=== PATIENT | female | born 1955 | race Caucasian/White ===

== ENCOUNTER 2020-03-29 10:37 | Outpatient (CLI) | payer MEDICARE, SELFPAY ==
[2020-03-29 10:52] LABS: Basophils Percent Auto 0.8 % (0.2-1.2); Eosinophils Absolute Auto 0.2 K/mm3 (0-0.3); Hematocrit 37.7 % (37.0-47.0); Hemoglobin 12.3 g/dL (12.0-15.0); Immature Granulocyte Absolute 0.01 K/mm3 (0.00-0.031); Immature Granulocyte Percent A 0.2 % (0-0.5); Lymphocytes Absolute Auto 1.12 K/mm3 (0.9-3.2); Lymphocytes Percent Auto 23.6 % (18.3-44.2); Mean Corpuscular HGB Conc 32.6 g/dl (32-36); Mean Corpuscular Hemoglobin 30.6 pg (26-34); Mean Corpuscular Volume 93.8 fl (80-100); Monocytes Absolute Auto 0.5 K/mm3 (0.1-0.6); Monocytes Percent Auto 10.7 % (2.6-8.5); Neutrophils Absolute Auto 2.9 K/mm3 (1.3-6.7); Neutrophils Percent Auto 60.7 % (45.5-73.1); Platelet Count Result 272 k/mm3 (150-375); Red Blood Count 4.02 M/mm3 (4.2-5.4); White Blood Count 4.8 K/mm3 (4.5-10.0)
[2020-03-29 12:48] LABS: Iron 95 ug/dL (37-170)
[2020-03-29 12:57] LABS: Percent Iron Saturation 35 % (20-50)
[2020-03-29 14:02] LABS: Folic Acid > 20.0 ng/mL (2.76->20)
== END 2020-03-29 10:38 | disposition home or self-care (01) ==
PROVIDERS: PCP Family Medicine; Visit Provider Internal Medicine Hematology & Oncology
DX: D50.9 Iron deficiency anemia, unspecified (principal)
CPT/HCPCS: 36415; 82607; 82728; 82746; 83540; 83550; 85025

== ENCOUNTER 2020-10-18 11:22 | Outpatient (CLI) | payer MEDICARE, SELFPAY ==
[2020-10-18 11:47] LABS: Basophils Percent Auto 0.7 % (0.2-1.2); Eosinophils Absolute Auto 0.2 K/mm3 (0-0.3); Eosinophils Percent Auto 4.6 % (0-4.4); Hematocrit 34.3 % (37.0-47.0); Immature Granulocyte Absolute 0.01 K/mm3 (0.00-0.031); Immature Granulocyte Percent A 0.2 % (0-0.5); Lymphocytes Absolute Auto 1.09 K/mm3 (0.9-3.2); Lymphocytes Percent Auto 24.8 % (18.3-44.2); Mean Corpuscular HGB Conc 32.1 g/dl (32-36); Mean Corpuscular Hemoglobin 29.6 pg (26-34); Mean Corpuscular Volume 92.5 fl (80-100); Mean Platelet Volume 9.1 fl (7.4-10.4); Monocytes Absolute Auto 0.5 K/mm3 (0.1-0.6); Monocytes Percent Auto 12.1 % (2.6-8.5); Neutrophils Absolute Auto 2.5 K/mm3 (1.3-6.7); Neutrophils Percent Auto 57.6 % (45.5-73.1); Platelet Count Result 258 k/mm3 (150-375); Red Blood Count 3.71 M/mm3 (4.2-5.4); Red Cell Distribution Width 13.5 % (11.5-14.5); White Blood Count 4.4 K/mm3 (4.5-10.0)
[2020-10-18 12:28] LABS: Iron 59 ug/dL (37-170)
[2020-10-18 12:38] LABS: Percent Iron Saturation 20 % (20-50)
[2020-10-18 13:36] LABS: Folic Acid > 20.0 ng/mL (2.76->20)
== END 2020-10-18 11:23 | disposition home or self-care (01) ==
LOC: ANHLAB 11:23
PROVIDERS: PCP Family Medicine; Visit Provider Internal Medicine Hematology & Oncology
DX: D50.9 Iron deficiency anemia, unspecified (principal)
CPT/HCPCS: 36415; 82607; 82728; 82746; 83540; 83550; 85025

== ENCOUNTER 2021-04-21 13:54 | Emergency (ER) | payer MEDICARE, SELFPAY ==
--- NOTE | ~2021-04-21 | XR_ITS ---
XR hand RT min 3V DATE: 04/21/2021 15:19 INDICATION: Pain, bruising, swelling at third through fifth metacarpophalangeal joints. No known inju ry. TECHNIQUE: 3 views COMPARISON: None FINDINGS: There is diffuse osteopenia. Mild osteoarthritic changes are noted at the first carpometacarpal and third metacarpophalangeal join ts. Osteoarthritis is noted at some of the interphalangeal joints, greatest at the distal interphalan geal joint of the second digit. No fracture, dislocation, periosteal reaction or bone destruction is detected. IMPRESSION: Osteopenia Mild polyarticular osteoarthritis Reviewed, dictated and finalized at location A.
[2021-04-21 13:57] VITALS: BP 141/63; PULSE 73; RESP 16; TEMP 36.8; O2SAT 95
--- NOTE | 2021-04-21 16:46 | ED.UPPEXIN ---
HPI - Extremity Injury (Upper) General Chief Complaint: Extremity Injury, Upper Stated Complaint: right hand injury Time Seen by Provider: 04/21/21 14:24 Source: patient Mode of arrival: ambulatory Limitations: no limitations History of Present Illness HPI narrative: Patient is a 66 year old female who presents with right hand pain. Patient reports bruising and swelling to dorsal hand at 3rd and 4th digits. She reports increased pain with ROM, flexion and extension. She denies known injury. She denies taking otc medication prior to arrival. PAtient is not on anticoagulants and denies significant medical history. MD complaint: injury to: right and hand Related Data Home Medications Medication Instructions Recorded Confirmed Bacillus coagulans 250 million cell PO 01/02/20 12/20/20 cell chewable tablet calcium carbonate 500 mg calcium 500 mg PO DAILY 01/02/20 12/20/20 (1,250 mg) tablet cholecalciferol (vitamin D3) 25 25 mcg PO DAILY 01/02/20 12/20/20 mcg (1,000 unit) tablet multivitamin 1 tablet PO DAILY 01/02/20 12/20/20 Allergies Allergy/AdvReac Type Severity Reaction Status Date / Time celecoxib [From Celebrex] Allergy Intermediate bradycardia Verified 04/21/21 14:22 iodine Allergy Mild unknown Verified 04/21/21 14:22 denosumab [From Prolia] AdvReac Severe arthralgia Verified 04/21/21 14:22 IV DYE, IODINE CONTAINING Allergy Severe anaphylactic Uncoded 04/21/21 14:22 CONTRAST shock Review of Systems Review of Systems: Narrative: CONSTITUTIONAL: Denies fever, chills, or sweats. EYES: Denies visual changes, redness, or discharge. ENT: Denies rhinorrhea, congestion, sore throat, or otalgia. CARDIOVASCULAR: Denies chest pain, palpitations, or edema. RESPIRATORY: Denies cough or dyspnea. GASTROINTESTINAL: Denies abdominal pain, nausea, vomiting, or diarrhea. GENITOURINARY: Denies dysuria or hematuria. SKIN: Denies rash or itching. MUSCULOSKELETAL: Right hand bruising and swelling NEUROLOGIC: Denies headache, numbness, dizziness, or weakness. PSYCHIATRIC: Denies anxiety or depression. [facility] Past Medical History Medical History Anemia Anxiety Arthritis Bilateral inguinal hernia Chronic anemia Chronic back pain Chronic pain Cyst of right kidney Depression Diverticulitis Early cataracts, bilateral Gallbladder disease GERD (gastroesophageal reflux disease) HLD (hyperlipidemia) HTN (hypertension) Peripheral neuropathy Rectal polyp Spinal stenosis at L4-L5 level Thyromegaly Surgical History Surgical History H/O bilateral inguinal hernia repair H/O gastric bypass H/O tubal ligation H/O: hysterectomy History of abdominoplasty History of cholecystectomy S/P cervical spinal fusion x3 Family History Family History Mother Diabetes mellitus Hypertension Asthma Family history of arthritis Father Hypertension Asthma Family history of arthritis Family history of kidney disease Sibling Patient's sister is in good health Patient's brother is in good health Social History Social History Social History: Smoking status: Never smoker Second hand tobacco smoke exposure: No Alcohol intake: never Substance use: never Substance use type: does not use Gender identity (if verbalized by the patient): Female Comments At the time of signature, I have reviewed and agree with nursing past medical, surgical, social, and family history unless otherwise noted. Please see nursing chart for further information. There is no relevant family history pertinent to the presenting complaint. Exam Narrative: Exam Narrative: GENERAL: Well-appearing, well-nourished, and in no acute distress. HEAD: Normocephalic, atraumatic. EYES: EOMI. No redness or drainage.
[2021-04-21 16:57] VITALS: TEMP 35.7
== END 2021-04-21 16:57 | disposition home or self-care (01) ==
PROVIDERS: Emergency Provider Nurse Practitioner; PCP Family Medicine
DX: S60.221A Contusion of right hand, initial encounter (principal); M19.90 Unspecified osteoarthritis, unspecified site; E78.5 Hyperlipidemia, unspecified; I10 Essential (primary) hypertension; G62.9 Polyneuropathy, unspecified; Z87.19 Personal history of other diseases of the digestive system; E04.9 Nontoxic goiter, unspecified; H26.9 Unspecified cataract; Z86.2 Personal history of diseases of the blood and blood-forming organs and certain disorders involving the immune mechanism; Z98.84 Bariatric surgery status; Z98.1 Arthrodesis status; X58.XXXA Exposure to other specified factors, initial encounter
CPT/HCPCS: 73130; 99283

== ENCOUNTER 2021-09-18 11:52 | Outpatient (CLI) | payer MEDICARE, SELFPAY ==
--- NOTE | ~2021-09-18 | MM_ITS ---
EXAMINATION: MM screening pili BI w jagruti HISTORY: Screening TECHNIQUE: Craniocaudal and mediolateral oblique 3-D tomosynthesis images were obtained and synthetic 2-D images were generated. CAD analysis was submitted and interpreted. COMPARISON: No prior mammogram is available for comparison at this institution. BREAST PARENCHYMAL COMPOSITION: There are scattered areas of fibroglandular density. FINDINGS: The right breast is stable without evidence for malignancy. There are asymmetries in the pe riareolar location of the left breast. IMPRESSION: 1. Left breast asymmetries periareolar location. 2. Additional mammographic views and possible breast ultrasound are recommended. BI-RADS Category 0: Incomplete: Needs additional imaging evaluation. Reviewed, dictated and finalized at location A. IMPRESSION: 1. Left breast asymmetries periareolar location. 2. Additional mammographic views and possible breast ultrasound are recommended . BI-RADS Category 0: Incomplete: Needs additional imaging evaluation.
== END 2021-09-18 11:53 | disposition home or self-care (01) ==
PROVIDERS: PCP Family Medicine; Visit Provider Family Medicine
DX: Z12.31 Encounter for screening mammogram for malignant neoplasm of breast (principal); R92.8 Other abnormal and inconclusive findings on diagnostic imaging of breast
CPT/HCPCS: 77063; 77067

== ENCOUNTER 2021-10-07 12:16 | Outpatient (CLI) | payer MEDICARE, SELFPAY ==
--- NOTE | ~2021-10-07 | MMUS_ITS ---
EXAMINATION: MM diagnostic pili LT w jagruti, US breast LT limited HISTORY: Focal asymmetry in the subareolar aspect of the left breast on screening mammogram TECHNIQUE: Additional 3-D tomosynthesis images of the left breast were performed and synthetic 2-D im ages were generated. CAD analysis was submitted and interpreted. High resolution limited left breast ultrasound was performed. COMPARISON: 09/18/2021, 04/29/2017 BREAST PARENCHYMAL COMPOSITION: There are scattered areas of fibroglandular density. FINDINGS: MAMMOGRAPHIC FINDINGS: There is a return to baseline fibroglandular appearance with spot compression of the left breast in t he area questioned on screening mammogram. ULTRASOUND: There is no evidence of focal abnormal solid or cystic mass in the vicinity of the mammographic findi ng in question. IMPRESSION: 1. No mammographic or sonographic evidence of malignancy. 2. Recommend routine screening mammography in one year. BI-RADS Category 1: Negative Reviewed, dictated and finalized at location A. EY RESEARCH TEACHER IMPRESSION: 1. No mammographic or sonographic evidence of malignancy. 2. Recommend routine screening mammography in one year. BI-RADS Category 1: Negative
== END 2021-10-07 12:17 | disposition home or self-care (01) ==
LOC: ANHIMG 12:19
PROVIDERS: PCP Family Medicine; Visit Provider Physician Assistant
DX: R92.8 Other abnormal and inconclusive findings on diagnostic imaging of breast (principal)
CPT/HCPCS: 76642; 77061; 77065; G0279

== ENCOUNTER 2021-11-24 09:40 | Emergency (ER) | payer MEDICARE, SELFPAY ==
--- NOTE | ~2021-11-24 | XR_ITS ---
XR knee LT min 4V, XR femur LT min 2V 11/24/2021 10:28 (accession [id number]), 11/24/2021 10:29 (accession [id number]) Indication: Left knee pain after fall Procedure: 4 views left knee and 2 views left femur Comparison: No prior studies for comparison. Findings: There is a nondisplaced proximal tibial plateau fracture involving the tibial spines and la teral tibial plateau. There is a moderate lipohemarthrosis. There is moderate osteoarthritis of the l eft knee. Osteopenia. There is an old left inferior pubic rami fracture. No other acute fracture. No foreign bodies. Impression: 1: Nondisplaced tibial plateau fracture extending inferiorly and posteriorly to the metaphysis. Moder ate lipohemarthrosis. Reviewed, dictated and finalized at location A. SCHOOL SCIENCE TEACHER Impression: 1: Nondisplaced tibial plateau fracture extending inferiorly and posteriorly to the metaphysis. Moderate lipohemarthrosis. Impression: 1: Nondisplaced tibial plateau fracture extending inferiorly and posteriorly to the metaphysis. Moderate lipohemarthrosis.
--- NOTE | ~2021-11-24 | XR_ITS ---
XR elbow LT min 3V 11/24/2021 10:29 Indication: Left elbow pain after fall Procedure: 4 views left elbow Comparison: No prior studies for comparison. Findings: There is a nondisplaced radial head fracture. Moderate joint effusion. Mild degenerative ch anges of the elbow. No foreign bodies. Impression: 1: Nondisplaced radial head fracture with moderate joint effusion. Reviewed, dictated and finalized at location A. NT ENGAGEMENT SPECIALIST Impression: 1: Nondisplaced radial head fracture with moderate joint effusion.
--- NOTE | 2021-11-24 09:58 | ED.LOWEXIN ---
HPI - Extremity Injury (Lower) General Chief Complaint: Extremity Injury, Lower Stated Complaint: fell, right knee pain Time Seen by Provider: 11/24/21 09:58 Source: patient and family Mode of arrival: wheelchair Limitations: no limitations History of Present Illness HPI Narrative: Patient is a 66-year-old female with a history of hypertension, spinal stenosis, presenting for evaluation of left knee pain and left elbow pain following a fall. Patient fell last night while descending 2 steps, states that she tripped, causing her to land on her bottom. Patient states that she felt an intense pop in her left knee with immediate pain following the fall. Patient states she has been able to slightly bend the knee but is significantly limited secondary to pain. She also states she landed on her left elbow and does have a dull, aching pain in the left elbow as well but has been able to move this more normally. She denies any significant bruising but the left knee does seem swollen. It is not red or warm that she has noticed. She denies any focal numbness or tingling. Patient states that she has had difficulty ambulating secondary to the pain. Patient denies any head trauma or loss of conscious. She is not on any anticoagulation. She denies vision changes, nausea, vomiting, lightheadedness, dizziness or chest pain, no prodromal symptoms prior to fall. Related Data Home Medications Medication Instructions Recorded Confirmed Bacillus coagulans 250 million cell PO 01/02/20 09/17/21 cell chewable tablet calcium carbonate 500 mg calcium 500 mg PO DAILY 01/02/20 09/17/21 (1,250 mg) tablet cholecalciferol (vitamin D3) 25 25 mcg PO DAILY 01/02/20 09/17/21 mcg (1,000 unit) tablet multivitamin 1 tablet PO DAILY 01/02/20 09/17/21 Allergies Allergy/AdvReac Type Severity Reaction Status Date / Time iodine Allergy Severe Anaphylactic Verified 11/24/21 10:25 Shock celecoxib [From Celebrex] Allergy Intermediate bradycardia Verified 09/17/21 10:38 denosumab [From Prolia] AdvReac Severe arthralgia Verified 09/17/21 10:38 IV DYE, IODINE CONTAINING Allergy Severe anaphylactic Uncoded 09/17/21 10:38 CONTRAST shock Review of Systems Review of Systems: CONSTITUTIONAL: Denies fever, chills, or sweats. EYES: Denies visual changes, redness, or discharge. ENT: Denies rhinorrhea, congestion, sore throat, or otalgia. CARDIOVASCULAR: Denies chest pain, palpitations, or edema. RESPIRATORY: Denies cough or dyspnea. GASTROINTESTINAL: Denies abdominal pain, nausea, vomiting, or diarrhea. GENITOURINARY: Denies dysuria or hematuria. SKIN: Denies rash or itching. MUSCULOSKELETAL: Denies back pain, reports left knee and left elbow pain NEUROLOGIC: Denies headache, numbness, or weakness. [facility] Past Medical History Medical History Anemia Anxiety Arthritis Bilateral inguinal hernia Chronic anemia Chronic back pain Chronic pain Cyst of right kidney Depression Diverticulitis Early cataracts, bilateral Gallbladder disease GERD (gastroesophageal reflux disease) HLD (hyperlipidemia) HTN (hypertension) Peripheral neuropathy Rectal polyp Spinal stenosis at L4-L5 level Thyromegaly Surgical History Surgical History H/O bilateral inguinal hernia repair H/O gastric bypass H/O tubal ligation H/O: hysterectomy History of abdominoplasty History of cholecystectomy S/P cervical spinal fusion x3 Family History Family History Mother Diabetes mellitus Hypertension Asthma Family history of arthritis Father Hypertension Asthma Family history of arthritis Family history of kidney disease Sibling Patient's sister is in good health Patient's brother is in good health Social History Social History Social History:
[2021-11-24 10:09] VITALS: BP 108/62; PULSE 98; RESP 16; TEMP 37.2; O2SAT 98
[2021-11-24] MEDS: oxyCODONE/ACETAMINOPHEN (*CRX) 5-325 MG TABLET 1 TABLET PO (10:39)
[2021-11-24 12:22] VITALS: BP 126/55; PULSE 69; RESP 16; O2SAT 96
== END 2021-11-24 12:22 | disposition home or self-care (01) ==
PROVIDERS: Emergency Provider Emergency Medicine; PCP Family Medicine
DX: S82.145A Nondisplaced bicondylar fracture of left tibia, initial encounter for closed fracture (principal); S52.125A Nondisplaced fracture of head of left radius, initial encounter for closed fracture; K21.9 Gastro-esophageal reflux disease without esophagitis; E78.5 Hyperlipidemia, unspecified; I10 Essential (primary) hypertension; G62.9 Polyneuropathy, unspecified; M19.90 Unspecified osteoarthritis, unspecified site; F41.9 Anxiety disorder, unspecified; F32.A Depression, unspecified; H26.9 Unspecified cataract; E01.0 Iodine-deficiency related diffuse (endemic) goiter; Z86.2 Personal history of diseases of the blood and blood-forming organs and certain disorders involving the immune mechanism; Z87.19 Personal history of other diseases of the digestive system; Z98.84 Bariatric surgery status; Z98.1 Arthrodesis status; W10.9XXA Fall (on) (from) unspecified stairs and steps, initial encounter
CPT/HCPCS: 73080; 73552; 73564; 99284; A4565; A9270

== ENCOUNTER 2021-11-29 12:15 | Outpatient (CLI) | payer MEDICARE, SELFPAY ==
--- NOTE | ~2021-11-29 | US_ITS ---
EXAMINATION: US venous doppler LE LT EXAM DATE: 11/29/2021 12:59 INDICATION: M79.662 - Pain in left lower leg lt leg pain. Lt leg injury . TECHNIQUE: Multiple grayscale, color flow and Doppler images of the left lower extremity deep venous system were obtained and reviewed. There is no prior study for comparison. FINDINGS: The left common femoral, femoral and profunda veins demonstrate normal color flow, respirat ory variation, augmentation and compressibility. Compressibility, color flow confirmed within the le ft popliteal, posterior tibial, peroneal, and greater saphenous veins. IMPRESSION: 1. No left lower extremity deep venous thrombosis. Reviewed, dictated and finalized at location A. CARDIOGRAPHY RADIOLOGY TECHNOLOGIST
== END 2021-11-29 12:16 | disposition home or self-care (01) ==
LOC: ANHIMG 12:20
PROVIDERS: PCP Family Medicine; Visit Provider Orthopaedic Surgery
DX: M79.662 Pain in left lower leg (principal)
CPT/HCPCS: 93971

== ENCOUNTER 2021-12-24 08:44 | Outpatient (CLI) | payer MEDICARE, SELFPAY ==
--- NOTE | ~2021-12-24 | XR_ITS ---
XR foot LT min 3V DATE: 12/24/2021 09:08 INDICATION: Possible cyst on dorsal aspect of left foot for one week TECHNIQUE: 4 views of left foot COMPARISON: None FINDINGS: Plantar calcaneal enthesopathy. There is osteoarthritic change at the tarsal and tarsometatarsal joints with dorsal spurring at the t arsometatarsal area.. Mild hallux valgus and bunion deformity. Mild osteoarthritic change at the first metatarsophalangeal joint. No fracture, dislocation, periosteal reaction or bone destruction is detected. IMPRESSION: Polyarticular osteoarthritis Plantar calcaneal enthesopathy Mild hallux valgus and bunion deformity Reviewed, dictated and finalized at location A. S OPERATIONS ANALYST
== END 2021-12-24 08:45 | disposition home or self-care (01) ==
PROVIDERS: PCP Family Medicine; Visit Provider Family Medicine
DX: M19.072 Primary osteoarthritis, left ankle and foot (principal); M77.32 Calcaneal spur, left foot; M20.12 Hallux valgus (acquired), left foot
CPT/HCPCS: 73630

== ENCOUNTER 2022-06-10 15:23 | Outpatient (CLI) | payer MEDICARE, SELFPAY ==
--- NOTE | ~2022-06-10 | DEXA_ITS ---
Bone Density Report Name: CELSO OLEARY Age: 67 Sex: Female Ethnicity: White Date of : 1955 Indication: osteopenia; height loss; inflammatory bowel disease; prior fracture; hysterectomy; postmenopausal Referring Provider: NIK GRANT Study: Bone densitometry was performed. Exam Date: June 10, 2022 Accession number: [id number] Bone Density: Region BMD T-score Z-score Classification Femoral Neck (Left) 0.643 -1.9 -0.2 Osteopenia Total Hip (Left) 0.708 -1.9 -0.6 Osteopenia Femoral Neck (Right) 0.597 -2.3 -0.6 Osteopenia Total Hip (Right) 0.676 -2.2 -0.8 Osteopenia Total Hip Mean 0.692 -2.1 -0.7 Osteopenia World Health Organization criteria for BMD impression classify patients as: Normal (T-score at or above -1.0), Osteopenia (T-score between -1.0 and -2.5), or Osteoporosis (T-score at or below -2.5). 10-year Fracture Risk(1): Major Osteoporotic Fracture 19% Hip Fracture 3.4% Reported Risk Factors: [place] (), Neck BMD=0.597, BMI=32.9, previous fracture (1) FRAX(R) Version 3.08. Fracture probability calculated for an untreated patient. Fracture probability may be lower if the patient has received treatment. Previous Exams: Region Exam Age BMD T-score BMD Change BMD Change Date g/cm2 vs Baseline vs Previous Total Hip(Left) 06/10/2022 67 0.708 -1.9 -0.032 (-4.3%) -0.032 (-4.3%) 10/21/2019 64 0.740 -1.7 Total Hip(Right) 06/10/2022 67 0.676 -2.2 0.006 (1.0%) 0.006 (1.0%) 10/21/2019 64 0.669 -2.2 *Denotes significance at 95% confidence level, LSC for Total Hip = 0.027 g/cm2 Clinical Information Provided by Patient: Has had a low trauma fracture Has used the following medications: Vitamin D, Calcium Has the following medical conditions: Inflammatory bowel diseases, Hysterectomy Patient maximum height was 67 Menopause Age: 43 No regular weight bearing exercise Does not regularly consume dairy products Drinks caffeinated beverages Onset of menses at age 13 Number of children 2 Impression: The patient has low bone mass, based on the Right Femoral Neck T-score. The patient has an estimated ten-year risk of hip fracture of 3.4% and an estimated ten-year risk of major fracture of 19%, based on the WHO FRAX algorithm. The patient has risk factors, including: previous fracture. The BMD for the Total Hip(Left) decreased, changing by -4.3% since the last DXA exam. Discussion: BONE DENSITY IS LOW AT ONE OR MORE SKELETAL SITES. THE PATIENT'S BMD AND CL
== END 2022-06-10 15:24 | disposition home or self-care (01) ==
LOC: ANHIMG 15:28
PROVIDERS: PCP Family Medicine; Visit Provider Nurse Practitioner Gerontology
DX: Z78.0 Asymptomatic menopausal state (principal); M85.852 Other specified disorders of bone density and structure, left thigh; M85.851 Other specified disorders of bone density and structure, right thigh
CPT/HCPCS: 77080

== ENCOUNTER 2022-06-18 01:45 | Day surgery (SDC) | payer MEDICARE, SELFPAY ==
[2022-06-02 15:03] VITALS: BMI 31.8
--- NOTE | 2022-06-17 11:39 | SUR.PREOP ---
1139 spoke with the patient regarding her prep for her procedure tomorrow. She said she just called to office to see what to take because she was unable to purchase the Magnesium Citrate which has been recalled. Instructed patient just to omit the magnesium Citrate. Patient voiced understanding.
--- NOTE | 2022-06-17 15:18 | WPDANESEPPF ---
Anes - Initial Pre Proc Eval Procedure: Operation Date: 06/18/22 09:45 Proposed Procedures p Screening Colonoscopy - Guille Matute MD Date/Time: 06/17/22 15:18 Surgeon: Guille Matute MD Pre Op Diagnosis: neoplasm screening Patient Data Age: 67 Gender: F Height: 1.65 m Weight: 86.8 kg Allergies Allergy/AdvReac Type Severity Reaction Status Date / Time iodine Allergy Severe Anaphylactic Verified 06/18/22 08:22 Shock celecoxib [From Celebrex] Allergy Intermediate bradycardia Verified 06/18/22 08:22 denosumab [From Prolia] AdvReac Severe arthralgia Verified 06/18/22 08:22 IV DYE, IODINE CONTAINING Allergy Severe anaphylactic Uncoded 06/18/22 08:22 CONTRAST shock Home Medications Medication Instructions Recorded Confirmed Type Bacillus coagulans 250 million 1 cell PO DAILY 01/02/20 06/02/22 History cell chewable tablet (Digestive Advantage Probiotic Gummy) calcium carbonate 500 mg calcium 500 mg PO DAILY 01/02/20 06/02/22 History (1,250 mg) tablet (Calcium 500) cholecalciferol (vitamin D3) 25 25 mcg PO DAILY 01/02/20 06/02/22 History mcg (1,000 unit) tablet multivitamin (Chewable-Dmitry tablet) 1 tablet PO DAILY 01/02/20 06/02/22 History fluticasone propionate 50 1 spray intranasal Q12H #16 grams 04/30/21 06/02/22 Rx mcg/actuation nasal spray,suspension fluoxetine 20 mg capsule 20 mg PO BID #180 caps 12/24/21 06/02/22 Rx amlodipine 10 mg tablet See Rx Instructions .Route 06/09/22 Rx .COMPLEX #90 tabs esomeprazole magnesium 40 mg See Rx Instructions .Route 06/09/22 Rx capsule,delayed release .COMPLEX #90 caps losartan 50 mg tablet See Rx Instructions .Route 06/09/22 Rx .COMPLEX #90 tabs Patient hx anesthesia problems: none Family hx anesthesia problems: none Results Review: All pre-operative results and documents have been reviewed as part of the pre-operative evaluation. [facility] Past Medical History Medical History Anemia Anxiety Arthritis Bilateral inguinal hernia Chronic anemia Chronic back pain Chronic pain Cyst of right kidney Depression Diverticulitis Early cataracts, bilateral Fusion of lumbar spine AMALIA (generalized anxiety disorder) Gallbladder disease GERD (gastroesophageal reflux disease) HLD (hyperlipidemia) HTN (hypertension) MDD (major depressive disorder), recurrent episode, moderate Osteoporosis Peripheral neuropathy Rectal polyp Spinal stenosis at L4-L5 level Thyromegaly Surgical History Surgical History H/O bilateral inguinal hernia repair H/O gastric bypass H/O tubal ligation H/O: hysterectomy History of abdominoplasty History of cholecystectomy S/P cervical spinal fusion x3 Family History Family History Mother Diabetes mellitus Hypertension Asthma Family history of arthritis Father Hypertension Asthma Family history of arthritis Family history of kidney disease Sibling Patient's sister is in good health Patient's brother is in good health Other Arthritis Depression High cholesterol Social History Social History (Updated 04/28/22 @ 08:15 by Gabrielle Noonan) Social History: Smoking packs per day: 1 Smoking cigarettes per day: 20.0 Years smoked: 13 Smoking pack-years: 13.00 Smoking status: Former smoker Second hand tobacco smoke exposure: No Smoking end date: 11/16/18 Alcohol intake: never Substance use: never Substance use type: does not use Living arrangements: with family Gender identity (if verbalized by the patient): Female Sexual Orientation (if Verbalized by the Patient): Straight or Heterosexual Spiritual care concerns: No Anes - Eval Final PreProcedure Day of Procedure 06/17/22 15:18 Patient weight: obese Heart: regular rate and rhythm Lungs:
[2022-06-18 08:23] VITALS: BP 142/62; PULSE 65; RESP 20; TEMP 36.2; O2SAT 98
[2022-06-18] MEDS: LACTATED RINGERS 1,000 ML 150 ML IV CONT (08:31)
--- NOTE | 2022-06-18 09:14 | PM.HPGS ---
History of Present Illness History of Present Illness Consent: Risks, benefits, and alternatives have been discussed and questions answered. Patient agrees to proceed with procedure. Chief complaint: neoplasm screening Narrative: Kerry Gonsales is a 67 year old female here for screening colonoscopy Review of Systems Constitutional: Constitutional: Denies headache(s) and Denies weakness Eyes: Eyes: Denies blurry vision ENT: Reports Normal hearing present, Denies headache(s) and Denies neck pain Cardiovascular: Cardiovascular: Denies chest pain and Denies dyspnea Respiratory: Respiratory: Denies dyspnea Gastrointestinal: Gastrointestinal: Reports no additional gastrointestinal complaints Genitourinary: Genitourinary: Denies dysuria Musculoskeletal: Musculoskeletal: Denies neck pain Integumentary/Breasts: Skin/Breast: Denies dry skin Neurologic: Reports Normal hearing present, Denies headache(s) and Denies weakness Psychiatric: Psychiatric: Denies anxiety Endocrine: Endocrine: Denies change in body appearance Hematologic/Lymphatic: Hematologic/Lymphatic: Denies easy bleeding Allergic/Immunologic: Allergic/Immunologic: Denies urticaria PMF Past Medical History Medical History Anemia Anxiety Arthritis Bilateral inguinal hernia Chronic anemia Chronic back pain Chronic pain Cyst of right kidney Depression Diverticulitis Early cataracts, bilateral Fusion of lumbar spine AMALIA (generalized anxiety disorder) Gallbladder disease GERD (gastroesophageal reflux disease) HLD (hyperlipidemia) HTN (hypertension) MDD (major depressive disorder), recurrent episode, moderate Osteoporosis Peripheral neuropathy Rectal polyp Spinal stenosis at L4-L5 level Thyromegaly Surgical History Surgical History H/O bilateral inguinal hernia repair H/O gastric bypass H/O tubal ligation H/O: hysterectomy History of abdominoplasty History of cholecystectomy S/P cervical spinal fusion x3 Family History Family History Mother Diabetes mellitus Hypertension Asthma Family history of arthritis Father Hypertension Asthma Family history of arthritis Family history of kidney disease Sibling Patient's sister is in good health Patient's brother is in good health Other Arthritis Depression High cholesterol Social History Social History (Updated 04/28/22 @ 08:15 by Gabrielle Noonan) Social History: Smoking packs per day: 1 Smoking cigarettes per day: 20.0 Years smoked: 13 Smoking pack-years: 13.00 Smoking status: Former smoker Second hand tobacco smoke exposure: No Smoking end date: 11/16/18 Alcohol intake: never Substance use: never Substance use type: does not use Living arrangements: with family Gender identity (if verbalized by the patient): Female Sexual Orientation (if Verbalized by the Patient): Straight or Heterosexual Spiritual care concerns: No Meds Home Medications and Allergies Home Medications Medication Instructions Recorded Confirmed Type Bacillus coagulans 250 million 1 cell PO DAILY 01/02/20 06/02/22 History cell chewable tablet (Digestive Advantage Probiotic Gummy) calcium carbonate 500 mg calcium 500 mg PO DAILY 01/02/20 06/02/22 History (1,250 mg) tablet (Calcium 500) cholecalciferol (vitamin D3) 25 25 mcg PO DAILY 01/02/20 06/02/22 History mcg (1,000 unit) tablet multivitamin (Chewable-Dmitry tablet) 1 tablet PO DAILY 01/02/20 06/02/22 History fluticasone propionate 50 1 spray intranasal Q12H #16 grams 04/30/21 06/02/22 Rx mcg/actuation nasal spray,suspension fluoxetine 20 mg capsule 20 mg PO BID #180 caps 12/24/21 06/02/22 Rx amlodipine 10 mg tablet See Rx Instructions .Route 06/09/22 Rx .COMPLEX #90 tabs esomeprazole magnesium 40 mg See Rx
[2022-06-18 09:41] VITALS: BP 126/74; PULSE 62; RESP 25; O2SAT 98
[2022-06-18 09:51] VITALS: BP 150/87; PULSE 65; RESP 22; O2SAT 100
[2022-06-18 10:01] VITALS: BP 147/85; PULSE 67; RESP 25; O2SAT 100
== END 2022-06-18 10:09 | disposition home or self-care (01) ==
PROVIDERS: PCP Family Medicine; Visit Provider Internal Medicine Gastroenterology
PROC: 0DJD8ZZ Inspection of Lower Intestinal Tract, Via Natural or Artificial Opening Endoscopic (ICD-10-PCS; CPT 45378; principal; 2022-06-18 09:45)
DX: Z12.11 Encounter for screening for malignant neoplasm of colon (principal); K63.5 Polyp of colon; K57.30 Diverticulosis of large intestine without perforation or abscess without bleeding; K64.8 Other hemorrhoids; I10 Essential (primary) hypertension; E78.5 Hyperlipidemia, unspecified; F33.1 Major depressive disorder, recurrent, moderate; D64.9 Anemia, unspecified; F41.1 Generalized anxiety disorder; Z98.1 Arthrodesis status; K21.9 Gastro-esophageal reflux disease without esophagitis; M81.0 Age-related osteoporosis without current pathological fracture; G62.9 Polyneuropathy, unspecified; Z98.84 Bariatric surgery status; Z87.891 Personal history of nicotine dependence; E66.9 Obesity, unspecified; Z68.32 Body mass index [BMI] 32.0-32.9, adult
CPT/HCPCS: 45385; 88305; J2704; J7120

== ENCOUNTER 2022-09-18 09:01 | Outpatient (CLI) | payer MEDICARE, SELFPAY ==
--- NOTE | ~2022-09-18 | XR_ITS ---
XR chest 2V 09/18/2022 09:15 Indication: Bradycardia. Procedure: 2 view chest Comparison: 08/26/2004 Findings: There is a nodular density in the right lower thorax laterally. Follow-up CT chest recommen ded. No focal pneumonia, edema or effusion. Heart size normal. No pneumothorax. Impression: 1: Nodular density right lower thorax. Follow-up CT chest recommended. Reviewed, dictated and finalized at location A. Impression: 1: Nodular density right lower thorax. Follow-up CT chest recommended.
== END 2022-09-18 09:02 | disposition home or self-care (01) ==
LOC: ANHIMG 09:03
PROVIDERS: PCP Family Medicine; Visit Provider Nurse Practitioner Gerontology
DX: R00.1 Bradycardia, unspecified (principal); R91.8 Other nonspecific abnormal finding of lung field
CPT/HCPCS: 71046

== ENCOUNTER → 2022-09-26 11:44 | Outpatient (CLI) | payer MEDICARE, SELFPAY ==
--- NOTE | ~2022-09-26 | CT_ITS ---
EXAMINATION: CT diagnostic chest wo con DATE: 09/26/2022 12:06 INDICATION: Nodular density projecting over the lower lateral right lung field on 09/18/2022 PA chest TECHNIQUE: Computed tomography (CT) of the chest was performed without intravenous contrast. Automate d exposure control and iterative reconstruction technique were employed. Exam dose: 113.64 mGy-cm to petra exam DLP. COMPARISON: None FINDINGS: Up to approximately 8 mm opacity of right upper lobe (series 4 image 45); six-month follow-up CT imag ing is recommended. Minimal discoid atelectasis or scarring at the lung bases at the lower lobes. There is no abnormal nodular density noted in the right lower lobe. This chest radiographic density c orresponds to callus associated with a healing lateral right ninth rib fracture. Calcified left hilar nodes consistent with old granulomatous disease. No hilar or mediastinal mass le keshawn or lymphadenopathy. Normal heart size. No pericardial or pleural effusion. Small sliding hiatal hernia. Status post cholecystectomy. Status post anterior and posterior cervical spine surgical fusion. Moderate T7 compression fracture deformity. There is moderate anterior wedging and loss of height of L1 due to probable chronic burst fracture. IMPRESSION: Healing lateral right ninth rib fracture accounts for the opacity noted overlying the lo wer right lateral lung field on 09/18/2022 There is an irregular 8 mm opacity in the right upper lobe of uncertain significance. CT thorax follo w-up examination 6 months is recommended. T7 and L1 fracture deformities Reviewed, dictated and finalized at Location A. Reviewed, dictated and finalized at location A. 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 CT thorax follow-up examination 6 months is recommended. T7 and L1 fracture deformities
== END ==
PROVIDERS: PCP Family Medicine; Visit Provider Physician Assistant
DX: R91.1 Solitary pulmonary nodule (principal); S22.31XD Fracture of one rib, right side, subsequent encounter for fracture with routine healing; X58.XXXD Exposure to other specified factors, subsequent encounter
CPT/HCPCS: 71250

== ENCOUNTER 2022-10-13 01:41 | Day surgery (SDC) | payer MEDICARE, SELFPAY ==
--- NOTE | 2022-10-03 10:58 | PC.NURSE ---
PRE-OP INSTRUCTIONS, PLEASE READ CAREFULLY Report to the Outpatient Waiting Room, entrance under the green pavilion located off [facility], at time _0800_ on date _10/13/22_. Planned Procedure Time: _1000_. Time changes happen often and if your time is changed the preop area will call you the afternoon before. - You and your visitor will be asked to self-screen and do not enter if you have any COVID symptoms. - Only one visitor is requested with a max of two and NO children visitors are allowed at this time. - The patient visitor may be requested to leave or wait in car when not with patient due to distancing restrictions. - A mask is optional within the hospital. Patients may have clear liquids (water, carbonated beverages, clear teas, apple juice) until 3 hours prior to surgery (0700 AM) with a maximum of 20 ounces. - No food from midnight until time of surgery Take the following medications with a SIP of water the morning of surgery: _FLUOXETINE, NASAL SPRAY_ Medications to discontinue per ANESTHESIA - _VITAMINS, SUPPLEMENTS, PRO-BIOTIC 3 DAYS PRIOR TO SURGERY, Date to take last dose 10/09/22_ Please no make-up, nail ukrainian, hairspray, perfume, deodorant, or body powder the day of surgery. No jewelry (including any body piercings) or valuables the day of surgery, leave them at home. Please take a shower or bath the night before, or the morning of, surgery with an antibacterial soap. Wear comfortable, loose fitting clothing. - Jewelry must be removed prior to entering the operating room. Rings and piercings that are not removed may be cut off. - The hospital will not accept responsibility for valuables. - Please leave all valuables, including medications, at home the day of surgery. If you are going home after surgery, a licensed skip load driver must drive you home. - NO public transportation without another adult if you receive anesthesia. - We recommend that an adult stay with you for 24 hours following discharge. - We also recommend that you do not drive, make important decision, drink alcoholic beverages, or take any drugs that were not prescribed by your health care provider for at least 24 hours after your discharge time. Follow any additional instructions given to you from your surgeon. If you or anyone in your household have experienced Covid symptoms in the past week, please notify your surgeon or the nurse liaison at the phone number below for possible testing. Telephone instructions given to PT and asked if any additional questions and then verbalized understanding. Patient advised to call surgeon office or pre surgery nurse liaison [phone] if any additional questions.
[2022-10-03 11:06] VITALS: BMI 32.4
--- NOTE | 2022-10-08 10:45 | PM.IMHP ---
H&P: HPI History of Present Illness Date/Time: 10/08/22 10:45 Chief Complaint: Left 2nd toe deformity Narrative: 67-year-old woman with left foot pain and 2nd toe deformity. Difficulty with shoe wear and daily activity. Failed conservative treatment. Desires operative treatment. Review of Systems Constitutional: Constitutional: Denies headache(s) and Denies weakness Eyes: Eyes: Denies blurry vision ENT: Reports Normal hearing present, Denies headache(s) and Denies neck pain Cardiovascular: Cardiovascular: Denies chest pain and Denies dyspnea Respiratory: Respiratory: Denies dyspnea Gastrointestinal: Gastrointestinal: Reports no additional gastrointestinal complaints Genitourinary: Genitourinary: Denies dysuria Musculoskeletal: Musculoskeletal: Denies neck pain Integumentary/Breasts: Skin/Breast: Denies dry skin Neurologic: Reports Normal hearing present, Denies headache(s) and Denies weakness Psychiatric: Psychiatric: Denies anxiety Endocrine: Endocrine: Denies change in body appearance Hematologic/Lymphatic: Hematologic/Lymphatic: Denies easy bleeding Allergic/Immunologic: Allergic/Immunologic: Denies urticaria PMFSH Past Medical History Medical History Anemia Anxiety Arthritis Bilateral inguinal hernia Chronic anemia Chronic back pain Chronic pain Cyst of right kidney Depression Diverticulitis Early cataracts, bilateral Fusion of lumbar spine AMALIA (generalized anxiety disorder) Gallbladder disease GERD (gastroesophageal reflux disease) Hammertoe of left foot HLD (hyperlipidemia) HTN (hypertension) MDD (major depressive disorder), recurrent episode, moderate 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 Osteoporosis Peripheral neuropathy Rectal polyp Spinal stenosis at L4-L5 level Thyromegaly Surgical History Surgical History H/O bilateral inguinal hernia repair H/O gastric bypass H/O tubal ligation H/O: hysterectomy History of abdominoplasty History of cholecystectomy S/P cervical spinal fusion x3 Family History Family History Mother Diabetes mellitus Hypertension Asthma Family history of arthritis Father Hypertension Asthma Family history of arthritis Family history of kidney disease Sibling Patient's sister is in good health Patient's brother is in good health Other Arthritis Depression High cholesterol Social History Social History Social History: Smoking packs per day: 1 Smoking cigarettes per day: 20.0 Years smoked: 13 Smoking pack-years: 13.00 Smoking status: Former smoker Tobacco type: cigarettes Second hand tobacco smoke exposure: Yes Smoking end date: 11/16/18 Alcohol intake: never Substance use: never Substance use type: does not use Lack of Transportation: No Lack of Food: Never True Current Housing: I Have Housing Concerned About Future Housing: No Difficulty Paying Gas/Electric Bills: No Difficulty Paying for Meds: No Currently Unemployed: No Education: Bachelor's Degree Difficulty w/ Childcare or Family Care: No Gender identity (if verbalized by the patient): Female Sexual Orientation (if Verbalized by the Patient): Straight or Heterosexual Spiritual care concerns: No Meds Home Medications and Allergies Home Medications Medication Instructions Recorded Confirmed Type Bacillus coagulans 250 million 1 cell PO DAILY 01/02/20 10/03/22 History cell chewable tablet (Digestive Advantage Probiotic Gummy) calcium carbonate 500 mg calcium 500 mg PO DAILY 01/02/20 10/03/22 History (1,250 mg) tablet (Calcium 500) cholecalciferol (vitamin D3) 25 25 mcg PO DAILY 01/02/20 10/03/22 History mcg (1,000 unit) tablet multivitamin (Chewable-Dmitry
[2022-10-13] VITALS (8 sets, daily range): BP systolic 95–143; BP diastolic 56–73; PULSE 51–65; RESP 12–17; TEMP 36.2–36.8; O2SAT 94–100
--- NOTE | ~2022-10-13 | XR_ITS ---
XR surgery orthopedic DATE: 10/13/2022 11:45 INDICATION: Left second hammertoe TECHNIQUE: 3 spot C-arm images of the distal forefoot and toes 10 seconds total exposure time 0.9197 cGycm2 COMPARISON: 09/02/2022 left foot FINDINGS: There is a fixation device extending through the phalanges of the second toe into the secon d metatarsal head, terminating at the midshaft of the second metatarsal bone. There is straightening of the second toe compared to hammertoe deformity noted on 09/02/2022. IMPRESSION: Postoperative change of second digit Reviewed, dictated and finalized at Location A. Reviewed, dictated and finalized at location B. 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
--- NOTE | 2022-10-13 07:45 | WPDHPUPDATE1 ---
History and Physical Update Update Date/Time: 10/13/22 07:45 History and Physical has been reviewed, including an updated exam of the patient. There are NO changes in the patient's condition. Risks, benefits, and alternatives have been discussed and questions answered. Patient agrees to proceed with procedure.
[2022-10-13] MEDS: ACETAMINOPHEN 500 MG TABLET 1000 MG PO (08:06)
[2022-10-13] MEDS: LACTATED RINGERS 1,000 ML 30 ML IV CONT (08:26)
--- NOTE | 2022-10-13 08:54 | SUR.PREOP ---
Discussed 45 min late start with patient. voices understanding.
--- NOTE | 2022-10-13 09:16 | WPDANESEPPF ---
Anes - Initial Pre Proc Eval Procedure: Operation Date: 10/13/22 10:00 Proposed Procedures p Left Second Crossover Toe Reconstruction, Possible Proximal Interphalangeal Arthrodesis, Possible Tendon Transfer - Ajay Dickens MD Date/Time: 10/13/22 09:16 Surgeon: Ajay Dickens MD Pre Op Diagnosis: left 2nd crossover toe, hammer toe Patient Data Age: 67 Gender: F Height: 1.65 m Weight: 87 kg Last Vital Signs Temp 36.8 C 10/13/22 08:16 Pulse 55 L 10/13/22 08:16 Resp 16 10/13/22 08:16 BP 139/73 10/13/22 08:16 Pulse Ox 98 10/13/22 08:16 O2 Del Method Room Air 10/13/22 08:16 Allergies Allergy/AdvReac Type Severity Reaction Status Date / Time iodine Allergy Severe Anaphylactic Verified 10/13/22 08:04 Shock denosumab [From Prolia] AdvReac Severe arthralgia Verified 10/13/22 08:04 celecoxib [From Celebrex] AdvReac Intermediate Other Verified 10/13/22 08:04 IV DYE, IODINE CONTAINING Allergy Severe anaphylactic Uncoded 10/13/22 08:04 CONTRAST shock Home Medications Medication Instructions Recorded Confirmed Type Bacillus coagulans 250 million 1 cell PO DAILY 01/02/20 10/03/22 History cell chewable tablet (Digestive Advantage Probiotic Gummy) calcium carbonate 500 mg calcium 500 mg PO DAILY 01/02/20 10/03/22 History (1,250 mg) tablet (Calcium 500) cholecalciferol (vitamin D3) 25 25 mcg PO DAILY 01/02/20 10/03/22 History mcg (1,000 unit) tablet multivitamin (Chewable-Dmitry tablet) 1 tablet PO DAILY 01/02/20 10/03/22 History fluticasone propionate 50 1 spray intranasal Q12H #16 grams 04/30/21 10/03/22 Rx mcg/actuation nasal spray,suspension fluoxetine 20 mg capsule 20 mg PO BID #180 caps 12/24/21 10/03/22 Rx amlodipine 10 mg tablet See Rx Instructions .Route 06/09/22 10/03/22 Rx .COMPLEX #90 tabs esomeprazole magnesium 40 mg See Rx Instructions .Route 06/09/22 10/03/22 Rx capsule,delayed release .COMPLEX #90 caps losartan 50 mg tablet See Rx Instructions .Route 06/09/22 10/03/22 Rx .COMPLEX #90 tabs hydrocodone 5 mg-acetaminophen 325 1 tablet PO Q6H PRN pain #30 tabs 10/13/22 Rx mg tablet ondansetron 8 mg disintegrating 8 mg PO Q8H PRN nausea and 10/13/22 Rx tablet vomiting #10 tabs sennosides 8.6 mg-docusate sodium 1 tab-cap PO BID PRN constipation 10/13/22 Rx 50 mg tablet (Senna with Docusate #20 tabs Sodium) Patient hx anesthesia problems: none Family hx anesthesia problems: none Results Review: All pre-operative results and documents have been reviewed as part of the pre-operative evaluation. 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 Osteoporosis Peripheral neuropathy Rectal polyp Spinal stenosis at L4-L5 level Thyromegaly Surgical History Surgical History H/O bilateral inguinal hernia repair H/O gastric bypass H/O tubal ligation H/O: hysterectomy History of abdominoplasty History of cholecystectomy S/P cervical spinal fusion x3 Family History Family History Mother Diabetes mellitus Hypertension Asthma Family history of arthritis Father Hypertension Asthma Family history of arthritis Family history of kidney disease Sibling Patient's sister is in good health Patient's brother is in good health Other Arthritis Depression High cholesterol Soci
[2022-10-13] MEDS: ceFAZolin 2 GM/D5W 50 ML 2 GM/50 ML BAG IVPB (10:50)
--- NOTE | 2022-10-13 12:04 | P.OP_ITS ---
Procedure Note - Detailed Date of Procedure 10/13/22 Pre-op Diagnosis left 2nd crossover toe, hammer toe Post-op Diagnosis Same Procedure Performed Left 2nd metatarsal exostosis removal, hammertoe correction. 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 Difficulty with shoe wear and with daily activity. Presents for operative treatment. Description of Procedure Patient identified in the preoperative holding. Informed consent given. Operative extremity marked. Patient received intravenous antibiotics. Patient brought to the operating room where underwent general anesthetic by anesthesia team. Positioned supine on operating room table. Time-out performed confirming the patient, site of the surgery and the plan. left foot and ankle exsanguinated and calf tourniquet inflated to 225 mmHg. Dorsal longitudinal incision made over the 2nd toe proximal interphalangeal joint with 15 blade knife. Hemostasis controlled electrocautery. Dorsal capsulotomy performed including the extensor tendon. Medial and lateral collateral ligaments released off of the proximal phalanx. Distal and of the proximal phalanx and the proximal end of the middle phalanx resected with bone cutter and rongeur. Any prominent bone or spurring removed with rongeur. Joint thoroughly irrigated with antibiotic solution. Joint then prepared, reduced and fixed with internal joint arthrodesis fixation device. Alignment checked with image intensification. Wound thoroughly irrigated. Capsule closed with 3 O Monocryl interrupted suture. Skin repaired with 4 O nylon interrupted suture. Dorsal longitudinal incision then made over the 2nd metatarsophalangeal joint. Dorsal capsulotomy performed. There was degenerative change on the dorsal late ral aspect of the metatarsal head. This was debrided with a rongeur. Soft tissue then elevated off the plantar aspect and resection of the plantar condyle performed with a osteotome and rongeur. Wound thoroughly irrigated and the capsule repaired with 3-0 Monocryl interrupted suture. Skin repaired with 4-0 nylon interrupted suture. Skin tourniquet released and good capillary refill noted in toe. Sterile dressing applied. Patient then awoke from anesthesia, extubated and taken to recovery room stable condition. All sponge needle and instrument counts correct at the end of the case. Implants Hammertoe implant, 14 mm. 0.045 in K-wire x1 Estimated Blood Loss 5 Tourniquet Time 45 Drains No Packing No Pathology None sent Complications None Condition Stable Disposition PACU
[2022-10-13] MEDS: fentaNYL CITRATE INJ (*CRX) 100 MCG/2 ML VIAL 25 MCG IV PUSH ×6 (12:21→12:40)
[2022-10-13] MEDS: oxyCODONE HCL (*CRX) 5 MG TAB IR PO (13:22)
== END 2022-10-13 13:48 | disposition home or self-care (01) ==
PROVIDERS: PCP Family Medicine; Visit Provider Orthopaedic Surgery
PROC: (CPT 28750; principal; 2022-10-13 10:00)
DX: M20.42 Other hammer toe(s) (acquired), left foot (principal); M89.9 Disorder of bone, unspecified; I10 Essential (primary) hypertension; E78.5 Hyperlipidemia, unspecified; M81.0 Age-related osteoporosis without current pathological fracture; F41.1 Generalized anxiety disorder; F33.1 Major depressive disorder, recurrent, moderate; Z98.1 Arthrodesis status; Z98.84 Bariatric surgery status; Z87.891 Personal history of nicotine dependence; E66.9 Obesity, unspecified; Z68.31 Body mass index [BMI] 31.0-31.9, adult
CPT/HCPCS: 28285; 28104; 99199; A9270; J0690; J1100; J2250; J2405; J2704; J3010; J7120

== ENCOUNTER 2023-01-23 15:19 | Outpatient (CLI) | payer MEDICARE, SELFPAY ==
--- NOTE | ~2023-01-23 | MM_ITS ---
EXAMINATION: MM screening pili BI w jagruti HISTORY: Screening mammogram, family history of breast cancer in her daughter. TECHNIQUE: Craniocaudal and mediolateral oblique 3-D tomosynthesis images were obtained and synthetic 2-D images were generated. CAD analysis was submitted and interpreted. COMPARISON: 10/07/2021, 09/18/2021, 04/29/2017 BREAST PARENCHYMAL COMPOSITION: There are scattered areas of fibroglandular density. FINDINGS: No suspicious mass, calcification, or architectural distortion are identified in either karlie ast to suggest malignancy. There has been no suspicious interval change. IMPRESSION: 1. No mammographic evidence of malignancy. 2. Recommend routine screening mammography in one year. BI-RADS Category 1: Negative Reviewed, dictated and finalized at location A. Y HAND
== END 2023-01-23 15:20 | disposition home or self-care (01) ==
LOC: ANHIMG 15:22
PROVIDERS: PCP Family Medicine; Visit Provider Family Medicine
DX: Z12.31 Encounter for screening mammogram for malignant neoplasm of breast (principal)
CPT/HCPCS: 77063; 77067

== ENCOUNTER → 2023-04-06 08:25 | Outpatient (CLI) | payer MEDICARE, SELFPAY ==
--- NOTE | ~2023-04-06 | CT_ITS ---
EXAMINATION: CT diagnostic chest wo con DATE: 04/06/2023 08:49 INDICATION: Follow-up lung nodule TECHNIQUE: Computed tomography (CT) of the chest was performed without intravenous contrast. The dose -length product was 118.07 mGy-cm. Automated exposure control and iterative reconstruction technique were employed. COMPARISON: CT dated 09/26/2022 FINDINGS: Heart size normal. No significant pleural or pericardial effusion. The liver, spleen, adren al glands, pancreas, are unremarkable. Bowel pattern is nonobstructive. There are surgical changes in the upper abdomen. No thoracic lymphadenopathy. There is evidence for chronic granulomatous disease. There is mild ather osclerosis of the aorta and coronary arteries. No significant pleural or pericardial effusion. There are stable compression fractures of T7 and L1. There is a 3 mm right upper lobe nodule which is some solid. There is a stable 6 mm right upper lobe nodule, image 44. There is diffuse endobronchial calci fication. No new pulmonary nodules or masses. No pneumothorax. No endobronchial lesions. There is a h ealed right lateral 10th rib fracture. IMPRESSION: 1. Stable right upper lobe pulmonary nodules measuring 6 mm or less, likely benign. Recommend follow- up low dose CT chest in 12 months. Reviewed, dictated and finalized at location B. IMPRESSION: 1. Stable right upper lobe pulmonary nodules measuring 6 mm or less, likely efe ign. Recommend follow-up low dose CT chest in 12 months.
== END ==
PROVIDERS: PCP Family Medicine; Visit Provider Physician Assistant
DX: R91.1 Solitary pulmonary nodule (principal); R91.8 Other nonspecific abnormal finding of lung field
CPT/HCPCS: 71250

== ENCOUNTER 2023-06-22 08:57 | Outpatient (CLI) | payer MEDICARE, SELFPAY ==
--- NOTE | 2023-07-06 16:05 | WPDHOMESLEEP ---
Sleep Study - Home Unattended Date of Study: 06/22/23 Ordering Provider: Servando Jay DO Interpreting Provider: Leatha Montgomery DO Home Sleep Study Type: Watch PAT Height: 1.65 m Weight: 89.358 kg Body Mass Index: 32.8 Neck Circumference (inches): 13.75 [place]: 8 Reason for Sleep Study Persistent bradycardia Sleep History The patient is a 68-year-old female with hypertension, depression, GERD, anxiety, hyperlipidemia, osteoporosis, peripheral neuropathy, thyromegaly, previously diagnosed sleep apnea and history of tobacco use that had a sleep study ordered by her public policy manager for evaluation of sleep apnea. The patient denies awakening from sleep short of breath. She occasionally awakens at night with heartburn, belching or cough. She rarely snores and is never loud enough that others complain. She occasionally has trouble sleeping when she has a cold. She occasionally wakes up gasping for air throughout the night. He rarely has breathing problems at night observed by herself or others. She rarely sweats excessively at night. She rarely has heart palpitations or irregular heartbeats during the night. She rarely falls asleep during the day but never while driving. She denies sleep paralysis and cataplexy. She denies having trouble at school or work due to sleepiness. She rarely experiences vivid dreamlike scenes upon awakening or falling asleep. She denies feeling afraid of going to sleep she rarely has nightmares. She occasionally remembers her dreams. She frequently has thoughts racing through her mind. She occasionally feels sad, depressed and anxious. She occasionally has muscular tension. She rarely notices parts of her body jerk. She rarely kicks during the night. She rarely has crawling and aching feelings in her legs and rarely has leg pain during the night. She occasionally grinds her teeth during sleep and occasionally awakens with morning jaw pain. She is frequently bothered by pain during the day and occasionally awakened by pain during the night. She occasionally wakes up feeling stiff in the morning. She occasionally wakes up with sore or achy muscles. She occasionally wakes up with pain in the neck, spine or other joints. She goes to bed between 8:30-9 p.m. on both weekdays and weekends. It takes her 20 minutes to fall asleep. She wakes up 3-4 times throughout the night for unknown reasons and is able fall back asleep within 30 minutes. She wakes up between 5-6 a.m. on both weekdays and weekends. She typically gets 6-7 hours of sleep per night. She will stay in bed for less than 5 minutes after waking up in the morning. She currently lives with her and [id number]. She denies consuming any caffeinated beverages within 2 hours of bedtime. She does not engage in physical exercise before bedtime. She denies reading and watching television before falling asleep. She denies taking naps in the afternoon or the evening. She consumes 3 coffees and 1 ice tea daily. She smoked for 30 years but quit 6 years ago. 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
[2023-07-06 16:11] VITALS: BMI 32.8
== END 2023-06-23 10:14 | disposition home or self-care (01) ==
LOC: ANHCSM 08:59
PROVIDERS: PCP Family Medicine; Visit Provider Internal Medicine Cardiovascular Disease
DX: G47.10 Hypersomnia, unspecified (principal); G47.33 Obstructive sleep apnea (adult) (pediatric)
CPT/HCPCS: 95800

== ENCOUNTER 2023-06-30 14:06 | Emergency (ER) | payer MEDICARE, SELFPAY ==
[2023-06-30] VITALS (7 sets, daily range): BP systolic 135–153; BP diastolic 64–72; PULSE 59–75; RESP 16–18; TEMP 36.6–37; O2SAT 98–100
--- NOTE | ~2023-06-30 | CT_ITS ---
EXAMINATION: CT thoracic lumbar wo con DATE: 06/30/2023 15:58 INDICATION: Mid thoracic back pain post fall TECHNIQUE: Computed tomography (CT) of the thoracic and lumbar spine was performed without intravenou s contrast. Automated exposure control and iterative reconstruction technique were employed. The dose -length product was 1793.63 mGy-cm. COMPARISON: 08/09/2019 FINDINGS: Thoracic spine: 11 degrees thoracic dextroscoliosis. Sagittal alignment is normal. Instrumented mid to lower cervical anterior and posterior spinal fusion with anterior plate and screw and bilateral vertical regine and la teral mass screw fixation extending from C4 through C7 on the technology sales representative topogram, the cephalad portion wh ich is not included on the subsequent axial imaging. Stable appearance of chronic mild anterior wedgi ng with 20% anterior vertebral body height loss at T7 with additional Schmorl's node along the superi or endplate. Remaining thoracic vertebral body heights are normal. No acute fracture. Disc heights ar e normal. No central canal stenosis. Multilevel mild to moderate cephalad predominant thoracic facet osteoarthritis which contributes to mild neural foraminal stenosis bilaterally at a few levels primar shelby in the upper and lower thoracic spine. Calcified left hilar lymph nodes consistent with old granu lomatous disease. Mild dependent atelectasis in the bilateral lower lobes. There is spinal soft tissu es are unremarkable. Lumbar spine: There are 6 nonrib-bearing lumbar segments. L3 and L5 laminectomies. Instrumented L4-L6 interspace pl eural effusion with interbody bone grafting and anterior plate and screw fixations at both levels. Is also posterior spinal fusion with bilateral vertical regine and pedicle screws on the right at L3, L4 a nd L6 and on the left at L3, L5 and L6. Residual screw tracks are seen at the the left-sided pedicle at and L4 and at the right-sided pedicle at L5. There is 2 degrees anterolisthesis L4 on L5 and 3 deg ree anterolisthesis L5 on L6. Chronic L1 compression fracture with one third anterior to central vert ebral body height loss. Disc heights are normal. No acute fractures. Mild disc bulges at L1-L2 and L2 -L3 resulting in mild central canal stenosis. Additional mild central canal stenosis at L4-L5. Bilate ral multilevel neural foraminal stenosis, moderate at L1-L2 and L2-L3, mild to moderate bilaterally a t L3-L4 and mild bilaterally at L4-L5 and L5 on L6. Interval healing of the previously seen nondispla jhoana sacral insufficiency fractures with no residual deformity. Cholecystectomy clips the gallbladder fossa. Additional postoperative change of prior gastric bypass procedure. Prior ventral hernia repair . 3.5 cm right renal cyst. IMPRESSION: 1. Mild thoracic and lumbar spondylosis with chronic compression fractures at T7 and L1. No acute oss eous abnormality. 2. Instrumented anterior and posterior spinal fusion in the lower cervical and lower lumbar spine. Of note there is a developmental variant 6 nonrib-bearing lumbar segments. Reviewed, dictated and finalized at location A. IMPRESSION: 1. Mild thoracic and lumbar spondylosis with chronic compression fractures at T 7 and L1. No acute osseous abnormality. 2. Instrumented anterior and posterior spinal fusion in the lower cervical and lower lumbar spine. Of note there is a developmental variant 6 nonrib-bearing l umbar segments.
--- NOTE | ~2023-06-30 | XR_ITS ---
EXAM: XR forearm RT 2V DATE: 06/30/2023 15:02 HISTORY: fall . COMPARISON: X-ray right hand 04/21/2021. FINDINGS: Normal mineralization. No fracture or dislocation. No lytic or blastic lesion. Mild degene rative changes in the elbow and wrist. No erosion or periosteal change. Soft tissue swelling posterio rly, over the mid forearm. IMPRESSION: No acute osseous finding in the right forearm. If clinical symptoms or mechanism of injury suggest wrist or elbow injury, consider dedicated radiogr aphs of those specific joints. Reviewed, dictated and finalized at location K. IMPRESSION: No acute osseous finding in the right forearm. If clinical symptoms or mechanism of injury suggest wrist or elbow injury, cons ider dedicated radiographs of those specific joints.
--- NOTE | ~2023-06-30 | CT_ITS ---
EXAMINATION: CT pelvis wo con DATE: 06/30/2023 15:58 INDICATION: Fall, pelvic and hip pain TECHNIQUE: Computed tomography (CT) of the pelvis was performed without intravenous contrast. Automat ed exposure control and iterative reconstruction technique were employed. The dose-length product was 616.78 mGy-cm. COMPARISON: X-ray left hip and pelvis same date; CT abdomen pelvis 12/10/2017. FINDINGS: Partially visualized lumbar fusion hardware. Atherosclerotic calcifications. Simple right r enal cyst. Subcentimeter right inferior pole hypodensity, likely early calcification versus hemorrhag ic/proteinaceous cyst. Surgically absent uterus. Surgical clips over the lower anterior and left late ral abdominal wall. Decreased mineralization old left obturator ring fracture. Scattered bone islands. Mild bilateral sac roiliac joint and hip joint degenerative change. Moderate osteitis pubis. No acute fracture or disloc ation. IMPRESSION: No acute osseous finding in the pelvis or bilateral hips. Reviewed, dictated and finalized at location K.
--- NOTE | ~2023-06-30 | XR_ITS ---
EXAM: XR hip LT 2V w AP pelvis DATE: 06/30/2023 15:02 HISTORY: fall . COMPARISON: X-ray femur 11/24/2021; x-ray pelvis 10/29/2019. FINDINGS: Decreased mineralization. No acute fracture or dislocation. Old left obturator ring fractu re. No lytic or blastic lesion. Mild degenerative changes in the bilateral SI joints and hips. Modera te degenerative change at the pubic symphysis. No erosion or periosteal change. Partially visualized, uncomplicated appearing lumbar fusion hardware. Multiple surgical clips project over the lower abdom en. Scattered vascular calcification. IMPRESSION: No acute osseous finding in the pelvis or left hip. Reviewed, dictated and finalized at location K.
--- NOTE | 2023-06-30 15:22 | ED.FALL ---
HPI - Fall General Chief Complaint: Fall Stated Complaint: fell. pelvic pain Time Seen by Provider: 06/30/23 15:01 History of Present Illness HPI Narrative: Patient is a 68-year-old female presenting after a fall. Patient states that yesterday she slipped on her stairs while trying to put up a baby gate. She fell striking her right forearm on the counter and landing on her left hip. States that she initially just tried to rest and take Tylenol but unfortunately the pain has been worsening today. States that she has had pelvic fractures in the past and this feels similarly. States that her left hip pain is radiating into her left groin. She is having a lot of difficulty ambulating. She did not strike her head or lose consciousness. She denies neck pain. She does complain of thoracic and lumbar back pain. No lightheadedness, numbness or weakness, chest pain, shortness of breath, abdominal pain, vomiting, leg swelling. Related Data Home Medications Medication Instructions Recorded Confirmed Bacillus coagulans 250 million 1 cell PO DAILY 01/02/20 05/18/23 cell chewable tablet (Digestive Advantage Probiotic Gummy) calcium carbonate 500 mg calcium 500 mg PO DAILY 01/02/20 05/18/23 (1,250 mg) tablet (Calcium 500) cholecalciferol (vitamin D3) 25 25 mcg PO DAILY 01/02/20 05/18/23 mcg (1,000 unit) tablet multivitamin (Chewable-Dmitry tablet) 1 tablet PO DAILY 01/02/20 05/18/23 Allergies Allergy/AdvReac Type Severity Reaction Status Date / Time iodine Allergy Severe Anaphylactic Verified 05/18/23 09:39 Shock denosumab [From Prolia] AdvReac Severe arthralgia Verified 05/18/23 09:39 celecoxib [From Celebrex] AdvReac Intermediate Other Verified 05/18/23 09:39 IV DYE, IODINE CONTAINING Allergy Severe anaphylactic Uncoded 05/18/23 09:39 CONTRAST shock Review of Systems Review of Systems: All systems reviewed & are unremarkable except as noted in HPI and below PMFSH Past Medical History Medical History Anemia Anxiety Arthritis Bilateral inguinal hernia Chronic anemia Chronic back pain Chronic pain Cyst of right kidney Depression Diverticulitis Early cataracts, bilateral Fusion of lumbar spine AMALIA (generalized anxiety disorder) Gallbladder disease GERD (gastroesophageal reflux disease) Hammertoe of left foot HLD (hyperlipidemia) HTN (hypertension) MDD (major depressive disorder), recurrent episode, moderate 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 Osteoporosis Peripheral neuropathy Rectal polyp Spinal stenosis at L4-L5 level Thyromegaly Surgical History Surgical History H/O bilateral inguinal hernia repair H/O gastric bypass H/O tubal ligation H/O: hysterectomy History of abdominoplasty History of cholecystectomy History of foot surgery Lt 2nd metatarsal exostosis removal/ hammer toe correction DOS: 10/13/2022 S/P cervical spinal fusion x3 Family History Family History Mother Diabetes mellitus Hypertension Asthma Family history of arthritis Father Hypertension Asthma Family history of arthritis Family history of kidney disease Sibling Patient's sister is in good health Patient's brother is in good health Other Arthritis Depression High cholesterol Social History Social History Social History: Smoking packs per day: 1 Smoking cigarettes per day: 20.0 Years smoked: 13 Smoking pack-years: 13.00 Smoking status: Former smoker Tobacco type: cigarettes Second hand tobacco smoke exposure: Yes Smoking end date: 11/16/18 Alcohol intake: never Substance use: never Substance use type: does not use Lack of Transportation: No Lack of Food: Never True Current Housing: I Have Housing Concerned About Alex
[2023-06-30] MEDS: oxyCODONE HCL (*CRX) 5 MG TAB IR PO (15:32)
--- NOTE | 2023-06-30 15:44 | PC.NURSE ---
Patient off unit to CT.
== END 2023-06-30 18:45 | disposition home or self-care (01) ==
PROVIDERS: Emergency Provider Emergency Medicine; PCP Family Medicine
DX: S79.912A Unspecified injury of left hip, initial encounter (principal); S50.11XA Contusion of right forearm, initial encounter; M48.55XA Collapsed vertebra, not elsewhere classified, thoracolumbar region, initial encounter for fracture; I10 Essential (primary) hypertension; E78.5 Hyperlipidemia, unspecified; D64.9 Anemia, unspecified; G62.9 Polyneuropathy, unspecified; K21.9 Gastro-esophageal reflux disease without esophagitis; M19.90 Unspecified osteoarthritis, unspecified site; M81.0 Age-related osteoporosis without current pathological fracture; F41.1 Generalized anxiety disorder; F33.9 Major depressive disorder, recurrent, unspecified; Z87.19 Personal history of other diseases of the digestive system; Z86.2 Personal history of diseases of the blood and blood-forming organs and certain disorders involving the immune mechanism; Z98.84 Bariatric surgery status; Z90.710 Acquired absence of both cervix and uterus; Z90.49 Acquired absence of other specified parts of digestive tract; Z98.1 Arthrodesis status; M47.816 Spondylosis without myelopathy or radiculopathy, lumbar region; M47.814 Spondylosis without myelopathy or radiculopathy, thoracic region; W10.9XXA Fall (on) (from) unspecified stairs and steps, initial encounter
CPT/HCPCS: 72128; 72131; 72192; 73090; 73502; 99284; A9270

== ENCOUNTER 2024-03-10 13:09 | Outpatient (CLI) | payer MEDICARE, SELFPAY ==
--- NOTE | ~2024-03-10 | MM_ITS ---
EXAMINATION: MM screening pili BI w jagruti HISTORY: Screening mammogram TECHNIQUE: Craniocaudal and mediolateral oblique 3-D tomosynthesis images were obtained and synthetic 2-D images were generated. CAD analysis was submitted and interpreted. COMPARISON: 3 size as I-123 bilateral screening mammogram 10/07/2021 diagnostic left mammogram and Limited left breast ultrasound examination 09/18/2021 bilateral screening mammogram BREAST PARENCHYMAL COMPOSITION: There are scattered areas of fibroglandular density. FINDINGS: There is no evidence of suspicious mass, calcification, or architectural distortion to sugg est malignancy in either breast. There has been no suspicious interval change. IMPRESSION: 1. No mammographic evidence of malignancy. 2. Recommend routine screening mammography in one year. BI-RADS Category 1: Negative Reviewed, dictated and finalized at location A.
== END 2024-03-10 13:10 ==
LOC: MICIMG 13:10
PROVIDERS: PCP Physician Assistant; Visit Provider Physician Assistant
DX: Z12.31 Encounter for screening mammogram for malignant neoplasm of breast (principal)
CPT/HCPCS: 77063; 77067

== ENCOUNTER 2024-04-06 09:38 | Outpatient (CLI) | payer MEDICARE, SELFPAY ==
--- NOTE | ~2024-04-06 | CT_ITS ---
CT Scan of the Chest without Contrast: Clinical Indication: Nonspecific abnormal finding of lung field Technique: Contiguous sections were acquired throughout the chest without intravenous contrast. Dose reduction technique was used on this scan by utilizing automated exposure control and iterative recon struction technique. The dose-length product (DLP) was 129.82 mGy-cm. COMPARISON: 04/06/2023 Findings: There is no evidence of any significant mediastinal, hilar or axillary lymphadenopathy. Calcified lef t hilar lymph nodes are present. The mediastinal soft tissues appear normal. There is no evidence of pleural or pericardial effusion. Stable 5 mm right upper lobe pulmonary nodule (axial image 55). Images through the upper abdomen reveal no abnormalities. Stable compression fractures of T7 and L1. Impression: Stable 5 mm right upper lobe pulmonary nodule. Stable compression fractures of T7 and L1. Reviewed, dictated and finalized at location . Impression: Stable 5 mm right upper lobe pulmonary nodule. Stable compression fractures of T7 and L1.
== END 2024-04-06 09:39 | disposition home or self-care (01) ==
LOC: ANHIMG 09:38
PROVIDERS: PCP Physician Assistant; Visit Provider Internal Medicine Critical Care Medicine
DX: R91.8 Other nonspecific abnormal finding of lung field (principal); S22.060D Wedge compression fracture of T7-T8 vertebra, subsequent encounter for fracture with routine healing; S22.070D Wedge compression fracture of T9-T10 vertebra, subsequent encounter for fracture with routine healing; S22.080D Wedge compression fracture of T11-T12 vertebra, subsequent encounter for fracture with routine healing; S32.010D Wedge compression fracture of first lumbar vertebra, subsequent encounter for fracture with routine healing; X58.XXXD Exposure to other specified factors, subsequent encounter
CPT/HCPCS: 71250

== ENCOUNTER 2024-06-15 10:16 | Outpatient (CLI) | payer MEDICARE, SELFPAY ==
--- NOTE | ~2024-06-15 | DEXA_ITS ---
Bone Density Report Name: CELSO OLEARY Age: 69 Sex: Female Ethnicity: White Date of : 1955 Indication: osteopenia; height loss; history of glucocorticoids; hysterectomy; Referring Provider: LION DURAN Study: Bone densitometry was performed. Exam Date: June 15, 2024 Accession number: [id number] Bone Density: Region BMD T-score Z-score Classification Femoral Neck (Left) 0.631 -2.0 -0.2 Osteopenia Total Hip (Left) 0.799 -1.2 0.3 Osteopenia Femoral Neck (Right) 0.597 -2.3 -0.5 Osteopenia Total Hip (Right) 0.776 -1.4 0.1 Osteopenia Total Hip Mean 0.787 -1.3 0.2 Osteopenia World Health Organization criteria for BMD impression classify patients as: Normal (T-score at or above -1.0), Osteopenia (T-score between -1.0 and -2.5), or Osteoporosis (T-score at or below -2.5). 10-year Fracture Risk(1): Major Osteoporotic Fracture 19% Hip Fracture 4.3% Reported Risk Factors: [place] (), Neck BMD=0.597, BMI=34.6, glucocorticoids (1) FRAX(R) Version 3.08. Fracture probability calculated for an untreated patient. Fracture probability may be lower if the patient has received treatment. Previous Exams: Region Exam Age BMD T-score BMD Change BMD Change Date g/cm2 vs Baseline vs Previous Total Hip(Left) 06/15/2024 69 0.799 -1.2 0.059 (7.9%)* 0.091 (12.8%)* 06/10/2022 67 0.708 -1.9 -0.032 (-4.3%) -0.032 (-4.3%) 10/21/2019 64 0.740 -1.7 Total Hip(Right) 06/15/2024 69 0.776 -1.4 0.107 (16.0%)* 0.100 (14.9%)* 06/10/2022 67 0.676 -2.2 0.006 (1.0%) 0.006 (1.0%) 10/21/2019 64 0.669 -2.2 *Denotes significance at 95% confidence level, LSC for Total Hip = 0.027 g/cm2 Clinical Information Provided by Patient: Has taken Glucocorticoids Has used the following medications: Boniva (i.e. ibandronate), Vitamin D, Calcium Has the following medical conditions: Hysterectomy Patient maximum height was 67.0 Menopause Age: 43 No regular weight bearing exercise Does not regularly consume dairy products Drinks caffeinated beverages Onset of menses at age 13 Number of children 2 Impression: The patient has low bone mass, based on the Right Femoral Neck T-score. The patient has an estimated ten-year risk of hip fracture of 4.3% and an estimated ten-year risk of major fracture of 19%, based on the WHO FRAX algorithm. The patient has risk factors, including: history of glucocorticoid therapy. No significant bone loss was observed. Discussion: BONE DENSITY IS
== END 2024-06-15 10:17 | disposition home or self-care (01) ==
PROVIDERS: PCP Physician Assistant; Visit Provider Nurse Practitioner Family
DX: M81.0 Age-related osteoporosis without current pathological fracture (principal); D64.9 Anemia, unspecified; M85.852 Other specified disorders of bone density and structure, left thigh; M85.851 Other specified disorders of bone density and structure, right thigh
CPT/HCPCS: 77080

== ENCOUNTER 2024-10-19 09:02 | Outpatient (CLI) | payer MEDICARE, SELFPAY ==
--- NOTE | ~2024-10-19 | NM_ITS ---
EXAMINATION: NM red stress w perfusion DATE: 10/19/2024 11:27 INDICATION: Chest pain. TECHNIQUE: Rest images were obtained following intravenous administration of 9.7 mCi Tc99m tetrofosmi n (Myoview). The patient was infused intravenously with Lexiscan (regadenoson). Then, 31.2 mCi Tc99m tetrofosmin (Myoview) was administered intravenously, and supine and prone stress images were obtaine d. Data was reconstructed into short axis and horizontal and vertical long axis SPECT images. Gated S PECT images were also obtained. COMPARISON: Chest CT 04/06/2024 FINDINGS: There is a small, mild, reversible perfusion defect involving mid inferior wall of left leland tricle, consistent with ischemia. There is no segmental wall motion abnormality. Left ventricular e jection fraction measures 64%. IMPRESSION: 1. Small area of mild ischemia involving mid inferior wall of left ventricle. 2. Normal left ventricular ejection fraction measuring 64%. Reviewed, dictated and finalized at location A. 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
--- NOTE | 2024-10-19 09:09 | EST_ITS ---
Patient Info Name: Kerry Gonsales Age: 69 years : 1955 Gender: Female Ht: 65 in Wt: 200 lbs BSA: 2.07 m2 HR: 63 bpm BP: 138 / 80 mmHg Exam Date: 10/19/2024 10:00 AM Exam Location: [facility] Patient Status: Outpatient Admit Date: 10/19/2024 Staff Ordering Physician: Servando Jay DO Attending Provider: Servando Jay DO Exercise Technologist: Soraya Feliz RDCS Exercise Physician: Servando Jay DO Exam Type: CA stress red w NM Study Info A regadenoson stress test was performed. Summary 1. 1. Negative lexiscan stress test for ischemic ST changes by ECG criteria. 2. 2. Reaction to lexiscan with tremors of head and hands. Aminophylline given and stopped tremors. 3. 3. Nuclear scan to follow and will be reported separately. Please correlate with it. 4. 4. Patient informed of the above results. Protocol: Lexiscan Stress ECG Details Stage: REST Duration (min): 0 min : 59 sec HR (bpm): 63 SBP (mmHg): 138 DBP (mmHg): 80 Stage: REST Duration (min): 5 min : 14 sec HR (bpm): 66 SBP (mmHg): 138 DBP (mmHg): 80 Stage: STAGE 1 Duration (min): 1 min : 0 sec HR (bpm): 84 SBP (mmHg): 138 DBP (mmHg): 80 Stage: RECOVERY Duration (min): 1 min : 0 sec HR (bpm): 84 SBP (mmHg): 138 DBP (mmHg): 80 Stage: RECOVERY Duration (min): 2 min : 0 sec HR (bpm): 80 SBP (mmHg): 138 DBP (mmHg): 80 Stage: RECOVERY Duration (min): 3 min : 0 sec HR (bpm): 81 SBP (mmHg): 164 DBP (mmHg): 75 Stage: RECOVERY Duration (min): 4 min : 0 sec HR (bpm): 80 SBP (mmHg): 164 DBP (mmHg): 75 Stage: RECOVERY Duration (min): 5 min : 0 sec HR (bpm): 78 SBP (mmHg): 160 DBP (mmHg): 81 Stage: RECOVERY Duration (min): 6 min : 0 sec HR (bpm): 75 SBP (mmHg): 160 DBP (mmHg): 81 Stage: RECOVERY Duration (min): 7 min : 0 sec HR (bpm): 78 SBP (mmHg): 158 DBP (mmHg): 78 Stage: RECOVERY Duration (min): 8 min : 0 sec HR (bpm): 73 SBP (mmHg): 158 DBP (mmHg): 78 Stage: RECOVERY Duration (min): 9 min : 0 sec HR (bpm): 68 SBP (mmHg): 157 DBP (mmHg): 78 Stage: RECOVERY Duration (min): 9 min : 3 sec HR (bpm): 68 SBP (mmHg): 157 DBP (mmHg): 78 Rest HR: 66 bpm Peak HR: 87 bpm Rest Sys BP: 138 mmHg Peak Sys BP: 164 mmHg Max Pred HR: 151 bpm % Max Pred HR: 58 % Target HR: 128 bpm Max RPP: 14,268 bpm*mmHg Termination Reason: Completed protocol Cardiac Symptoms: Shortness of breath, Headache, tremors of head and hands Total Time: 1 min : 0 sec Rest Berrios BP: 80 mmHg Peak Berrios BP: 75 mmHg Total Dose: 0.4 mg Aminophylline Dose: 100 mg Resting ECG Sinus rhythm. Stress ECG No ST changes. Due to tremors, Aminophylline 100 mg IV given and tremors stopped. Arrhythmias None. Report Signatures
== END 2024-10-19 09:03 | disposition home or self-care (01) ==
PROVIDERS: PCP Family Medicine; Visit Provider Internal Medicine Cardiovascular Disease
DX: R07.9 Chest pain, unspecified (principal)
CPT/HCPCS: 78452; 93017; A9502; J0280; J2785

== ENCOUNTER 2025-03-27 14:08 | Outpatient (CLI) | payer MEDICARE, SELFPAY ==
--- NOTE | ~2025-03-27 | MM_ITS ---
EXAMINATION: MM screening pili BI w jagruti HISTORY: Screening mammogram, family history of breast cancer in her daughter. TECHNIQUE: Craniocaudal and mediolateral oblique 3-D tomosynthesis images were obtained and synthetic 2-D images were generated. CAD analysis was submitted and interpreted. COMPARISON: No prior mammogram is available for comparison at this institution. BREAST PARENCHYMAL COMPOSITION:Not Dense. There are scattered areas of fibroglandular density. FINDINGS: No suspicious mass, calcification, or architectural distortion are identified in either karlie ast to suggest malignancy. There has been no suspicious interval change. IMPRESSION: No mammographic evidence of malignancy. Recommend routine screening mammography in one year. BI-RADS Category 1: Negative Reviewed, dictated and finalized at location .
== END 2025-03-27 14:09 | disposition home or self-care (01) ==
LOC: MICIMG 14:09
PROVIDERS: PCP Family Medicine; Visit Provider Family Medicine
DX: Z12.31 Encounter for screening mammogram for malignant neoplasm of breast (principal)
CPT/HCPCS: 77063; 77067

== ENCOUNTER 2025-04-26 10:17 | Outpatient (CLI) | payer MEDICARE, SELFPAY ==
[2025-04-26 10:31] LABS: Basophils Percent Auto 0.7 % (0.2-1.2); Eosinophils Absolute Auto 0.2 K/mm3 (0-0.3); Eosinophils Percent Auto 3.3 % (0-4.4); Hematocrit 37.1 % (37.0-47.0); Hemoglobin 11.9 g/dL (12.0-15.0); Immature Granulocyte Absolute 0.01 K/mm3 (0.00-0.031); Immature Granulocyte Percent A 0.2 % (0-0.5); Lymphocytes Absolute Auto 1.36 K/mm3 (0.9-3.2); Lymphocytes Percent Auto 24.9 % (18.3-44.2); Mean Corpuscular HGB Conc 32.1 g/dl (32-36); Mean Corpuscular Hemoglobin 29.2 pg (26-34); Mean Corpuscular Volume 90.9 fl (80-100); Monocytes Absolute Auto 0.5 K/mm3 (0.1-0.6); Monocytes Percent Auto 9.3 % (2.6-8.5); Neutrophils Absolute Auto 3.4 K/mm3 (1.3-6.7); Neutrophils Percent Auto 61.6 % (45.5-73.1); Platelet Count Result 329 k/mm3 (150-375); Red Blood Count 4.08 M/mm3 (4.2-5.4); Red Cell Distribution Width 14.1 % (11.5-14.5); White Blood Count 5.5 K/mm3 (4.5-10.0)
--- OUTSIDE RECORDS SUMMARY | 2025-04-26 11:47 | XMS_ITS | Clinical Summary ---
Author Organization [facility] Address [address] [place] [address] Care Team Providers Care Senior Commissary Agent Name Role Phone Andie Crawley MD Primary Care Provider [phone] Allergies Active Allergy Reactions Criticality Noted Date Comments Diclofenac Blood Disorder High 04/03/2020 Gabapentin Other (See Comments) 08/10/2019 Feels intoxicated Iodinated Contrast Media Anaphylaxis,Hives High 12/29/2018 Iodine Anaphylaxis High 09/14/2020 Povidone-Iodine Anaphylaxis High 12/25/2017 Medications Saccharomyces boulardii (FLORASTOR) 250 mg Capsule Take 500 mg by mouth daily. Active calcium carbonate + vitamin D (CALTRATE+D) 600 mg(1,500mg) -400 unit Tablet Take 1 Tablet by mouth daily. Active cholecalciferol , vitamin D3, 1,000 unit Take 1,000 Units by mouth daily. Active fluticasone propionate (FLONASE) 50 mcg/spray [place], Suspension nasal inhaler Administer 2 Sprays in each nostril 1 time daily as needed for Rhinitis. Active amLODIPine (NORVASC) 10 mg tablet Take 10 mg by mouth daily at bedtime. Active cyanocobalamin (VITAMIN B-12) 1,000 mcg/mL Solution 2 9 Active SAFETY-MORGAN TB SYR 1CC/25GX5/8 1 mL 25 gauge x 5/8 Syringe USE UTD 0 Active esomeprazole (NexIUM) 40 mg Capsule, Delayed Release(E.C.) TK 1 C PO D 0 Active multivitamin with minerals (MULTIPLE VITAMIN-MINERAL S ORAL) Take by mouth. Alive/ chewable/ gummy Active losartan (COZAAR) 50 mg tablet 2 Active FLUoxetine (PROzac) 20 mg capsule 2 Active busPIRone (BUSPAR) 5 mg tablet Take 5 mg by mouth 3 times daily. 4 Active ibandronate (BONIVA) 150 mg tablet Take 150 mg by mouth every 30 days. 4 Active rosuvastatin (CRESTOR) 5 mg tablet Take 5 mg by mouth daily. 4 Active Active Problems Problem Noted Date Diagnosed Date Osteopenia of multiple sites 04/03/2020 Iron deficiency anemia 12/29/2018 Chronic bilateral low back pain Compression fracture of spine Orbital mass Acute cystitis without hematuria Resolved Problems Problem Noted Date Diagnosed Date Resolved Date Sacral fracture, closed 03/16 Encounters Date Type Department Care Team Description 04/11/2025 External Device Data ST[facility] ABSTRACTION Provider, Abstract 04/06/2025 External Device Data STL ABSTRACTION Provider, Abstract 2025 External Device Data ST[facility] ABSTRACTION Provider, Abstract 2025 External Device Data ST[facility] ABSTRACTION Provider, Abstract 04/04/2025 External Device Data [facility] ABSTRACTION Provider, Abstract 03/21/2025 External Device Data [facility] ABSTRACTION Provider, Abstract 03/21/2025 External Device Data [facility] ABSTRACTION Provider, Abstract 03/21/2025 External Device Data [facility] ABSTRACTION Provider, Abstract 02/01/2025 External Device Data ST[facility] ABSTRACTION Provider, Abstract from Last 3 Months Immunizations Immunization Administration Dates Next Due Hepatitis A Vaccine 07/25/2015 INFLUENZA VACCINE QUADRIVALENT 6 MOS UP IM 08/19 INFLUENZA VACCINE QUADRIVALENT 6 MOS UP PF IM ,08/02/2018 Family History Medical History Relation Name Comments Diabetes Brother 1 Heart Disease Father Diabetes Mother Relation Name Status Comments Brother 1 Alive Brother 2 Alive Brother 3 Alive Father Mother Sister 1 Alive Sister 2 Alive Social History Tobacco Use Types Packs/Day Years Used Date Smoking Tobacco: Former Cigarettes 0.5 30 0 12/29/1985 - 12/29/2015 Smokeless Tobacco: Never Tobacco Cessation:Counseling Given: Not Answered Alcohol Use Standard Drinks/Week Comments Yes 0 (1 standard drink = 0.6 oz pur e alcohol) sometime Comments No Sex and Gender Information Value Date Recorded Sex Assigned at Not on file Legal Sex Female 4:21 PM WATCH ENGINE OPERATOR Gender Identity Not on file Sexual Orientation Not on file Last Filed Vital Signs Vital Sign Reading Time Taken Comments Blood Pressure 131/62 04/29/2024 11:09 AM CDT Pulse 54 04/29/2024 11:09 AM CDT Temperature 36.3 C (97.3 F) 04/29/2024 11:09 AM CDT Respiratory Rate 18 04/29/2024 11:09 AM CDT Oxygen Saturation 96% 04/29/2024 11:09 AM CDT Inhaled Oxygen Concentration - - Weight 91.6 kg (202 lb) 04/29/2024 11:09 AM CDT Height 165.1 cm (5' 5) 04/04/2022 9:48 AM CDT Body Mass Index 33.61 04/04/2022 9:48 AM CDT Plan of Treatment Upcoming Encounters Date Type Department Care Team (Late st Contact Info) Description 05/01/2025 10:00 AM CDT Office Visit [facility] Oncology and Hematology - [place] [address] [facility] [address] [place] [address] Chauncey Zhang MD [address] [facility] [address] [place] [address] Health Maintenance Due Date Last Done Comments Pre-Diabetes and Diabetes Screening 1955 DTAP/TDAP/TD VACCINES (1 - Tdap) 1974 BREAST CANCER SCREENING 1995 COLORECTAL SCREENING 2000 Colorectal Cancer Screening 2000 FIT-DNA Q 3 years 2000 FIT/FOBT Q 1 year 2000 Flex Sig/CT Colonography Q 5 years 2000 PNEUMOCOCCAL VACCINE 50+ YEA RS (1 of 1 - PCV) 2005 ZOSTER VACCINE (1 of 2) 2005 OSTEOPOROSIS SCREENING 2020 INFLUENZA VACCINE (#1) 2024 9, 08/02/2018, 08/19/2017 COVID-19 Vaccine (2 - season) 07/17/20241 RSV VACCINE (60+ or ) (1 - 1-dose 75+ series) 2030 Insurance [employer] CHOICE PPO [facility] [employer] Medicare Part D Advance Directives For more information, please contact: [phone] * Full Code (Latest Code Status on File) Date Activated Date Inactivated Comments 08/10/2019 9:41 AM 08/16/2019 7:18 PM Care Teams Senior Commissary Agent Relationship Specialty Start Date End Date Andie Crawley MD PCP - General Family Practice 12/22/18
--- OUTSIDE RECORDS SUMMARY | 2025-04-26 11:47 | XMS_ITS | Clinical Summary ---
Author Organization [facility] Address [address] [place] [address] Care Team Providers Care Industrial Yard Brake Coupler Name Role Phone King Horta MD Primary Care Provider [phone] Source Comments [facility],non-owned Affiliates and Associated Physician Practices is amultiple site organization consisting of ambulatory clinics and hospital sitesin [place], [place] and [place]. This disclosure is being madepursuant to the Care Everywhere program and may not contain all information available regarding this patient. Last updated 18.[facility] Allergies Active Allergy Reactions Criticality Noted Date Comments Contrast-Iodinated Agents Fo r Ct/Other Other,Anaphylaxis High 12/25/2017 Povidone Iodine Anaphylaxis High 12/25/2017 Medications * Be aware that medications may not be up to date on this document. Alwaysverify current medications with the patient. fluticasone propionate (FLONASE) 50 MCG/ACT nasal spray [place] 1 spray twice a day by intranasal route for 30 days. Active traMADol (ULTRAM) 50 MG tablet Take 1 tablet(s) every 8 hours by oral route. Active levETIRAcetam (KEPPRA) 500 MG tablet Take 500 mg by mouth Active pantoprazole EC (PROTONIX) 40 MG tablet TAKE ONE TABLET BY MOUTH ONCE DAILY Active losartan (COZAAR) 100 MG tablet Take 100 mg by mouth Active vitamin D, cholecalciferol , 2000 UNITS tablet Active Multiple Vitamins-Minera ls (ALIVE WOMENS GUMMY) CHEW Active Active Problems Problem Noted Date Diagnosed Date Anemia 08/20/2018 Chronic back pain 08/20/2018 Gastroesophageal reflux disease 08/20/2018 Essential hypertension 08/20/2018 Neuropathy 08/20/2018 Post gastrectomy syndrome 08/20/2018 Overview (08/20/2018): 63 y/o female who in 2000 had a gastric bypass Jose-en-Y construction who has successfully lost weight but has a functional postgastrectomy syndrome of dumping syndrome when she eats high carbohydrate meals, has previously been documented to be iron deficient (due to Jose-en-Y bypass of duodenum), and probable B12 deficiency as intrinsic factor is bypassed. 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 Vitamin B12 deficiency (non anemic) 08/20/2018 Overview (08/20/2018): 63 y/o female who in 2000 had a gastric bypass Jose-en-Y construction who has successfully lost weight but has a functional postgastrectomy syndrome of dumping syndrome when she eats high carbohydrate meals, has previously been documented to be iron deficient (due to Jose-en-Y bypass of duodenum), and probable B12 deficiency as intrinsic factor is bypassed. 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 Allergic rhinitis 08/02/2018 History of gastric bypass 12/27/2017 Normocytic anemia 12/27/2017 Osteopenia 09/09/2017 Iron deficiency anemia 01/30/2017 Bilateral plantar wart 12/24/2016 Social History Tobacco Use Types Packs/Day Years Used Date Smoking Tobacco: Never Smokeless Tobacco: Never Alcohol Use Standard Drinks/Week Comments No 0 (1 standard drink = 0.6 oz pur e alcohol) Comments Unknown Sex and Gender Information Value Date Recorded Sex Assigned at Not on file Legal Sex Female 9:55 AM CDT Gender Identity Not on file Sexual Orientation Not on file Last Filed Vital Signs Vital Sign Reading Time Taken Comments Blood Pressure 132/73 10/11/2018 3:27 PM DRUGLESS PHYSICIAN Pulse 68 10/11/2018 3:27 PM DRUGLESS PHYSICIAN Temperature 37.1 C (98.7 F) 10/11/2018 3:27 PM DRUGLESS PHYSICIAN Respiratory Rate 18 10/11/2018 3:27 PM DRUGLESS PHYSICIAN Oxygen Saturation 100% 10/11/2018 3:27 PM DRUGLESS PHYSICIAN Inhaled Oxygen Concentration - - Weight 82.2 kg (181 lb 3.2 oz) 10/11/2018 3:27 P M DRUGLESS PHYSICIAN Height 165.1 cm (5' 5) 10/11/2018 3:27 PM DRUGLESS PHYSICIAN Body Mass Index 30.15 10/11/2018 3:27 PM DRUGLESS PHYSICIAN Plan of Treatment Health Maintenance Due Date Last Done Comments BONE DENSITY TESTING 1955 COLOGUARD (AGES 45-75) - COL ON CA SCREENING 1955 COLON MONITORING 1955 COLONOSCOPY - COLON CA SCREENING 1955 CT COLONOGRAPHY - COLON CA SCREENING 1955 Colorectal Cancer Screening 1955 FIT - COLON CA SCREENING 1955 FLEX SIG - COLON CA SCREENING 1955 LIPID TESTING 1955 MAMMOGRAM 1955 HEPATITIS C SCREENING 03/31/1973 DTAP/TDAP/TD VACCINES (1 - Tdap) 1974 PNEUMOCOCCAL VACCINE 50+ (1 of 1 - PCV) 2005 ZOSTER VACCINE (1 of 2) 2005 SCREENING FOR DIABETES 08/20/2021 08/20/2018 COVID-19 VACCINE (1 - 2023-2 5 season) 2024 DEPRESSION SCREENING 11/16/2024 INFLUENZA VACCINE (Season Ended) 2025 08/02/2018, 08/19/2017 Respiratory Syncytial Virus (RSV) Vaccine Pt: or over 60 yrs (1 - 1-dose 75+ series) 2030 HEPATITIS B VACCINE Aged Out No longe r eligible based on patient's age to complete this topic HIB VACCINE Aged Out No longer eligi ble based on patient's age to complete this topic HPV VACCINE Aged Out No longer eligi ble based on patient's age to complete this topic MENINGOCOCCAL (Group B) VACCINE SHARED DECISION-MAKING Aged Out No longer eligible based on patient's age to complete this topic MENINGOCOCCAL GROUPS A/C/Y/W VACCINE Aged Out No longer eligible b ased on patient's age to complete this topic Procedures Procedure Name Priority Date/Time Associated Diagnosis Comments COMPREHENSIVE METABOLIC PANEL Routine 08/20/2018 10:50 AM CDT History of gastric bypass Post gastrectomy syndrome Other iron deficiency anemia Normocytic anemia Vitamin B12 deficiency (non anemic) from Last 3 Months or Most Recently Relevant to Health Maintenance Results * (ABNORMAL) COMPREHENSIVE METABOLIC PANEL (08/20/2018 10:50 AM [facility]) BUN 8 7 - 26 mg/dL 08/20/2018 11:54 AM [facility] Creatinine 0.7 0.6 - 1.2 mg/dL 08/20/2018 11:54 AM [facility] Sodium 138 136 - 145 mmol/L 08/20/2018 11:54 AM [facility] Potassium 3.9 3.5 - 4.5 mmol/L 08/20/2018 11:54 AM [facility] Chloride 100 98 - 107 mmol/L 08/20/2018 11:54 AM [facility] CO2 31(H) 22 - 29 mmol/L 08/20/2018 11:54 AM [facility] Glucose 108 70 - 115 mg/dL 08/20/2018 11:54 AM [facility] Calcium 9.7 8.4 - 10.2 mg/dL 08/20/2018 11:54 AM [facility] Protein Total 7.5 6.0 - 8.3 g/dL 08/20/2018 11:54 AM [facility] Albumin 4.0 3.4 - 5.0 g/dL 08/20/2018 11:54 AM [facility] Bilirubin Total 0.8 0.2 - 1.2 mg/dL 08/20/2018 11:54 AM [facility] Alkaline Phosphatase 104 40 - 150 Units/L 08/20/2018 11:54 AM [facility] ALT 11 0 - 55 Units/L 08/20/2018 11:54 AM [facility] AST 22 5 - 34 Units/L 08/20/2018 11:54 AM [facility] Anion Gap 11 8 - 18 08/20/2018 11:54 AM [facility] BUN/Creatinine Ratio 11 7 - 23 08/20/2018 11:54 AM [facility] Osmolality Calculated 285 270 - 300 mOsm/kg 08/20/2018 11:54 AM [facility] Albumin/Globulin Ratio 1.1 1.1 - 2.3 08/20/2018 11:[address] [facility] eGFR >60 >60 mL/min/1.7 3 m2 08/20/2018 11:[address] [facility] Blood BLOOD SPECIMEN / Unknown Lab Venipuncture / Unknown 08/20/2018 10:50 AM CDT 08/20/2018 11:19 AM CDT us Stevenson Castro MD LAB - CHEMISTRY ORDERABLES F inal Result [place] [id number] [address] [phone] from Last 3 Months or Most Recently Relevant to Health Maintenance Insurance [facility] Address: [address] [address] Care Teams Industrial Yard Brake Coupler Relationship Specialty Start Date End Date King Horta MD [address] [place] [id number] PCP - General 08/20/18
--- OUTSIDE RECORDS SUMMARY | 2025-04-26 11:48 | XMS_ITS | Clinical Summary ---
Author Organization [facility] Address [address] [place] [address] Phone Care Team Providers Care Seat Cover Maker Name Role Phone King Horta MD Primary Care Provider Allergies Active Allergy Reactions Criticality Noted Date Comments Iodine Anaphylaxis 12/25/2017 Iodinated Contrast Media Anaphylaxis 12/25/2017 Medications losartan (COZAAR) 100 MG Tablet Take 100 mg by mouth daily. Active pantoprazole (PROTONIX) 40 MG Pack 40 mg by Per NG tube route daily. Active levETIRAcetam (KEPPRA) 500 MG Tablet Take 500 mg by mouth 2 times daily. Active Cholecalciferol (VITAMIN D) 2000 UNIT Tablet Take by mouth. Active Misc Natural Products (CALCIUM PLUS ADVANCED PO) Take by mouth. Active Multiple Vitamins-Mineral s (ONE-A-DAY WOMENS 50+ ADVANTAGE PO) Take by mouth. Active traMADol (ULTRAM) 50 MG Tablet Take 50 mg by mouth every 6 hours as needed for Pain. Active ferrous sulfate 325 (65 Fe) MG TabletIndication s:Normocytic anemia,History of gastric bypass Take 1 Tab by mouth daily. 30 Tab 4 01/12/2018 Active Active Problems Problem Noted Date Diagnosed Date Normocytic anemia 12/27/2017 History of gastric bypass 12/27/2017 Resolved Problems Problem Noted Date Diagnosed Date Resolved Date Iron deficiency anemia due t o chronic blood loss 12/25/2017 12/27/2017 Family History Medical History Relation Name Comments Chronic Obstructive Pulmonary Disease Father Congestive Heart Failure Father Hypertension Father Cancer Maternal Grandmother Diabetes Mother Heart Attack Mother Hypertension Mother Relation Name Status Comments Father Maternal Grandmother Mother Social History Tobacco Use Types Packs/Day Years Used Date Smoking Tobacco: Former Cigarettes Smokeless Tobacco: Never Alcohol Use Standard Drinks/Week Comments Yes 0 (1 standard drink = 0.6 oz pur e alcohol) occasionally Sexually Active Control Partners Comments Not Currently Comments Unknown Sex and Gender Information Value Date Recorded Sex Assigned at Not on file Legal Sex Female 8:28 AM PLATEN PRESS OPERATOR APPRENTICE Gender Identity Not on file Sexual Orientation Not on file Last Filed Vital Signs Vital Sign Reading Time Taken Comments Blood Pressure 145/78 01/12/2018 10:02 AM PLATEN PRESS OPERATOR APPRENTICE Pulse 54 01/12/2018 10:02 AM PLATEN PRESS OPERATOR APPRENTICE Temperature 36.3 C (97.3 F) 01/12/2018 10:02 AM PLATEN PRESS OPERATOR APPRENTICE Respiratory Rate 18 01/12/2018 10:02 AM PLATEN PRESS OPERATOR APPRENTICE Oxygen Saturation 96% 01/12/2018 10:02 AM PLATEN PRESS OPERATOR APPRENTICE Inhaled Oxygen Concentration - - Weight 79.1 kg (174 lb 6.4 oz) 01/12/2018 10:02 AM PLATEN PRESS OPERATOR APPRENTICE Height 165.1 cm (5' 5) 01/12/2018 10:02 AM PLATEN PRESS OPERATOR APPRENTICE Body Mass Index 29.02 01/12/2018 10:02 AM PLATEN PRESS OPERATOR APPRENTICE Plan of Treatment Health Maintenance Due Date Last Done Comments Hepatitis C Virus (HCV) Screening 1955 TdaP Immunization 1955 Cologuard 2000 Colonoscopy 2000 Colorectal Cancer Screening 2000 Immunochemical Fecal Occult Blood 2000 Pneumococcal Immunization (5 0+ years) (1 of 1 - PCV) 2005 Zoster Immunization (1 of 2) 2005 SARS-COV-2 Immunization (1 - 2023- season) 2024 Influenza Immunization (Seas on Ended) 2025 Respiratory Syncytial Virus (RSV) Immunization (Adult) (1 - 1-dose 75+ series) 2030 Hepatitis B Immunization Aged Out No longer eligible based on patient's age to complete this topic Human Papillomavirus (HPV) Immunization Aged Out No longer eligible b ased on patient's age to complete this topic Meningococcal Immunization (ACWY) Aged Out No longer eligible based on patient's age to complete this topic Rotavirus Immunization Aged Out No lo nger eligible based on patient's age to complete this topic Insurance [facility] Care Teams Seat Cover Maker Relationship Specialty Start Date End Date King Horta MD [address] [place] [address] PCP - General Internal Medicine 12/23/17
--- OUTSIDE RECORDS SUMMARY | 2025-04-26 11:48 | XMS_ITS | CONTINUITY OF CARE DOCUMENT ---
Author Name romulo sebastian Address Unknown Organization [facility] Address [address] [place] [address] Phone [phone] Care Team Providers Care Renal Medicine Physician Name Role Phone YESSICA WILSON MD Unavailable YESSICA WILSON MD Unavailable [phone] INSURANCE PROVIDERS Payer name Policy type / Coverage type Wilmar red green party ID [facility] [id number]
[2025-04-26 12:03] LABS: Iron 84 ug/dL (37-170)
[2025-04-26 12:15] LABS: Percent Iron Saturation 22 % (20-50)
[2025-04-26 12:36] LABS: Anion Gap 8 mmol/L (4-12); Blood Urea Nitrogen 13 mg/dL (7-17); Carbon Dioxide 28 mmol/L (22-30); Chloride 99 mmol/L (98-107); Estimated Glomerular Filt Rate > 60; Glucose 107 mg/dL (65-110); Potassium 4.5 mmol/L (3.4-5.0); Sodium 135 mmol/L (137-145)
[2025-04-26 13:41] LABS: Folic Acid > 20.0 ng/mL (2.76->20)
== END 2025-04-26 10:18 | disposition home or self-care (01) ==
LOC: ANHLAB 10:18
PROVIDERS: PCP Family Medicine; Visit Provider Internal Medicine Hematology & Oncology
DX: D64.9 Anemia, unspecified (principal)
CPT/HCPCS: 36415; 80048; 82607; 82728; 82746; 83540; 83550; 85025

== ENCOUNTER 2025-05-02 09:08 | Outpatient (CLI) | payer MEDICARE, SELFPAY ==
--- NOTE | ~2025-05-02 | CT_ITS ---
CT Scan of the Chest without Contrast: Clinical Indication: Lung cancer screening, nicotine dependence Technique: Contiguous sections were acquired throughout the chest without intravenous contrast. Dose reduction technique was used on this scan by utilizing automated exposure control and iterative recon struction technique. The dose-length product (DLP) was 135.38 mGy-cm. COMPARISON: 04/06/2024 Findings: There is no evidence of any significant mediastinal, hilar or axillary lymphadenopathy. The mediastin al soft tissues appear normal. There is no evidence of pleural or pericardial effusion. Stable 5 mm right upper lobe nodule (axial image 42). Images through the upper abdomen reveal no abnormalities. Stable T7 and L1 compression deformity. Impression: Lung RADS 2: Benign appearance. 12 month follow-up screening CT advised. Reviewed, dictated and finalized at [facility]. Impression: Lung RADS 2: Benign appearance. 12 month follow-up screening CT advised.
== END 2025-05-02 09:09 | disposition home or self-care (01) ==
LOC: MICIMG 09:08
PROVIDERS: PCP Family Medicine; Visit Provider Student in an Organized Health Care Education/Training Program
DX: Z12.2 Encounter for screening for malignant neoplasm of respiratory organs (principal); Z87.891 Personal history of nicotine dependence
CPT/HCPCS: 71271

== ENCOUNTER 2025-07-06 00:42 | Day surgery (SDC) | payer MEDICARE, SELFPAY ==
--- OUTSIDE RECORDS SUMMARY | 2025-05-26 01:36 | XMS_ITS | Clinical Summary ---
Author Organization [facility] Address [address] [place] [address] Care Team Providers Care Pie Bakery Laborer Name Role Phone Isaac Longoria MD Primary Care Provider [phone] Allergies Active Allergy Reactions Criticality Noted Date [...] daily. Active fluticasone propionate (FLONASE) 50 mcg/spray [place], Suspension nasal inhaler Administer 2 Sprays in [...] 5 mg by mouth daily. 4 Active fluticasone-ume clidinium-vilan terol (Trelegy Ellipta) 100-62.5-25 mcg Disk with Device Take 1 Puff by inhalation daily. Active Active Problems Problem Noted Date Diagnosed Date Osteopenia of multiple sites 04/03/2020 Iron deficiency anemia 12/29/2018 Chronic bilateral low back pain Compression fracture of spine Orbital mass Acute cystitis without hematuria Resolved Problems Problem Noted Date Diagnosed Date Resolved Date Sacral fracture, closed 03/16 Encounters Date Type Department Care Team Description 05/02/2025 External Device Data ST[facility] ABSTRACTION Provider, Abstract 05/01/2025 10:00 AM CDT Office Visit [facility] Oncology and Hematology - [place] [address] [place] [address] Chauncey Zhang MD Chronic anemia (Primary Dx) 04/26/2025 Orders Only [facility] Oncology and Hematology [place] [address] [place] [address] Chauncey Zhang MD 04/11/2025 External Device Data [facility] ABSTRACTION Provider, [...] on file Legal Sex Female 4:21 PM BORE MILL OPERATOR FOR PLASTIC Gender Identity Not on file Sexual Orientation Not on file Last Filed Vital Signs Vital Sign Reading Time Taken Comments Blood Pressure 129/75 05/01/2025 9:36 AM CDT Pulse 58 05/01/2025 9:36 AM CDT Temperature 36.1 C (97 F) 05/01/2025 9:36 AM CDT Respiratory Rate 15 05/01/2025 9:36 AM CDT Oxygen Saturation 97% 05/01/2025 9:36 AM CDT Inhaled Oxygen Concentration - - Weight 100 kg (220 lb 6.4 oz) 05/01/2025 9:36 AM CDT Height 165.1 cm (5' 5) 04/04/2022 9:48 AM CDT Body Mass Index 36.68 04/04/2022 9:48 AM CDT Plan of Treatment Upcoming Encounters Date Type Department Care Team (Late st Contact Info) Description 05/02/2026 10:15 AM CDT Office Visit [facility] - [place] [address] [facility] [address] [place] [address] Chauncey Zhang MD [address] [facility] [address] [place] [address] Health Maintenance Due Date Last [...] (1 of 2) 2005 OSTEOPOROSIS SCREENING 2020 COVID-19 Vaccine (2 - season) 07/17/202409/2021 INFLUENZA VACCINE (#1) 2025 9, 08/02/2018, 08/19/2017 RSV VACCINE (60+ or ) (1 - 1-dose 75+ series) 2030 Procedures Procedure Name Priority Date/Time Associated Diagnosis Comments BASIC METABOLIC PANEL Routine 04/26/2025 3:47 PM CDT CBC WITH AUTODIFFERENTIAL Routine 2024 1:17 PM CDT from Last 3 Months Results * BASIC METABOLIC PANEL (04/26/2025 3:47 PM CDT) Blood us Chauncey Zhang MD CHEMISTRY ORDERABLES Final Resu lt * CBC WITH AUTODIFFERENTIAL (04/26/2025 1:17 PM CDT) Blood us Chauncey Zhang MD HEMATOLOGY ORDERABLES Final Res ult from Last 3 Months Insurance [employer] CHOICE PPO [facility] Member Subscriber Plan / Payer (Ef fective 2021-Present) Name:Kerry Gonsales Relation to Subscriber:Self Name:Kerry Gonsales Payer ID:Not on file Type:PPO Address: [place] [id number] [employer] Medicare Part D Advance Directives For more information, please contact: [phone] * Full Code (Latest Code Status on File) Date Activated Date Inactivated Comments 08/10/2019 9:41 AM 08/16/2019 7:18 PM Care Teams Pie Bakery Laborer Relationship Specialty Start Date End Date Isaac Longoria MD [address] [facility] [address] [place] [address] PCP - General Family Practice 05/01/25
--- OUTSIDE RECORDS SUMMARY | 2025-05-26 01:36 | XMS_ITS | Encounter Summary ---
Author Organization [facility] Address [address] [place] [address] Care Team Providers Care Global President Name Role Phone Andie Crawley MD Primary Care Provider [phone]- [phone] Encounter Details Date Type Department Care Team (Late st Contact Info) Description 09/14/2020 Prep for Procedure [facility] [address] [place] [address] Ryan Molina MD [address] [place] [address] Social History Tobacco Use Types Packs/Day Years Used Date Smoking Tobacco: Former Cigarettes 0.5 25 1 - 2014 Smokeless Tobacco: Never Comments No Sex and Gender Information Value Date Recorded Sex Assigned at Not on file Legal Sex Female 8:29 PM CDT Gender Identity Not on file Sexual Orientation Not on file documented as of this encounter Plan of Treatment Not on file documented as of this encounter Results * PRE-SURGICAL/PRE-PROCEDURE CORONAVIRUS (COVID 19) (09/21/2020 10:47 AM QUALITY COMPLIANCE COORDINATOR) CORONAVIRUS SARS COV 2 PCR (RESP) NOT DETECTED NOT DETECTED 09/23/2020 4:46 AM QUALITY COMPLIANCE COORDINATOR [facility] Comment: A Not Detected (negative) test result for this test means that SARS- CoV-2 RNA was not present in the specimen above the limit of detection. A negative result does not rule out the possibility of COVID-19 and should not be used as the sole basis for treatment or patient management decisions. If COVID-19 is still suspected, based on exposure history together with other clinical findings, re-testing should be considered in consultation with public health authorities. Laboratory test results should always be considered in the context of clinical observations and epidemiological data in making a final diagnosis and patient management decisions. Please review the Fact Sheets and FDA authorized labeling available for health care providers and patients using the following websites: https://www.E[employer].MyActivityPal/home/Covid-19/HCP/QuestIVD/fact- sheet.html https://www.[employer].MyActivityPal/home/Covid-19/Patients/ QuestIVD/fact-sheet.html This test has been authorized by the FDA under an Emergency Use Authorization (EUA) for use by authorized laboratories. Due to the current public health emergency, [facility] is receiving a high volume of samples from a wide variety of swabs and media for COVID-19 testing. In order to serve patients during this public health crisis, samples from appropriate clinical sources are being tested. Negative test results derived from specimens received in non-commercially manufactured viral collection and transport media, or in media and sample collection kits not yet authorized by FDA for COVID-19 testing should be cautiously evaluated and the patient potentially subjected to extra precautions such as additional clinical monitoring, including collection of an additional specimen. Methodology: Nucleic Acid Amplification Test (NAAT) includes RT-PCR or TMA Additional information about COVID-19 can be found at the [facility] website: www.OriginOil.MyActivityPal/Covid19. Test performed at [facility] [address] [id number] Director: LUIS MONTGOMERY DO,MPH FIRST TEST UNKNOWN 09/21/2020 10:44 AM [facility] EMPLOYED IN HEALTHCARE NO 09/21/2020 10:44 AM [facility] SYMPTOMATIC DEFINED BY CDC NO 09/21/2020 10:44 AM [facility] DATE OF SYMPTOM ONSET UNKNOWN 09/21/2020 11:51 AM [facility] HOSPITALIZATION STATUS NO 09/21/2020 10:44 AM [facility] PATIENT IN ICU NO 09/21/2020 10:44 AM QUALITY COMPLIANCE COORDINATOR [facility] RESIDENT OF CONGREGATE CARE NO 09/21/2020 10:44 AM QUALITY COMPLIANCE COORDINATOR [facility] UNKNOWN 09/21/2020 11:51 AM QUALITY COMPLIANCE COORDINATOR [facility] PATIENT'S RACE WHITE OR 09/21/2020 10:44 AM QUALITY COMPLIANCE COORDINATOR [facility] ETHNICITY NONHISPANIC 09/21/2020 10:44 AM QUALITY COMPLIANCE COORDINATOR [facility] SOURCE (QST) NASOPHARYNGEAL SWAB 09/21/2020 10:44 AM QUALITY COMPLIANCE COORDINATOR [facility] NASOPHARYNGEAL SWAB / Unknown 09/21/2020 10:47 AM QUALITY COMPLIANCE COORDINATOR us Ryan Molina MD MICROBIOLOGY - GENERAL ORDERAB LES Final Result Performing Organization Address City/State/[facility] Co de Phone Number [facility] [address] [place] [address], [employer] [address] [place] [address], documented in this encounter Visit Diagnoses Diagnosis Preop testing- Primary Preoperative examination, unspecified documented in this encounter Additional Health Concerns Infection Onset Date Last Indicated Resolved Time COVID-19 Rule Out 09/21/2020 09/21/2020 09/23/2020 4:46 AM QUALITY COMPLIANCE COORDINATOR COVID-19 Rule Out 10/26/2020 10/26/2020 10/28/2020 12:51 AM QUALITY COMPLIANCE COORDINATOR documented as of this encounter Care Teams Global President Relationship Specialty Start Date End Date Andie Crawley MD [address] [place] [address] PCP - General FAMILY PRACTICE 09/11/20 documented as of this encounter
--- OUTSIDE RECORDS SUMMARY | 2025-05-26 01:37 | XMS_ITS | Clinical Summary ---
Author Organization [facility] Address [address] [place] [address] Phone Care Team Providers Care Trimming Assembler Name Role Phone King Horta MD Primary [...] on file Legal Sex Female 8:28 AM LODGE ATTENDANT Gender Identity Not on file Sexual Orientation Not on file Last Filed Vital Signs Vital Sign Reading Time Taken Comments Blood Pressure 145/78 01/12/2018 10:02 AM LODGE ATTENDANT Pulse 54 01/12/2018 10:02 AM LODGE ATTENDANT Temperature 36.3 C (97.3 F) 01/12/2018 10:02 AM LODGE ATTENDANT Respiratory Rate 18 01/12/2018 10:02 AM LODGE ATTENDANT Oxygen Saturation 96% 01/12/2018 10:02 AM LODGE ATTENDANT Inhaled Oxygen Concentration - - Weight 79.1 kg (174 lb 6.4 oz) 01/12/2018 10:02 AM LODGE ATTENDANT Height 165.1 cm (5' 5) 01/12/2018 10:02 AM LODGE ATTENDANT Body Mass Index 29.02 01/12/2018 10:02 AM LODGE ATTENDANT Plan of Treatment Health Maintenance Due Date Last Done Comments Hepatitis C Virus (HCV) Screening 1955 TdaP Immunization 1955 Cologuard 2000 Colonoscopy 2000 Colorectal Cancer Screening 2000 Immunochemical Fecal Occult Blood 2000 Pneumococcal Immunization (5 0+ years) (1 of 1 - PCV) 2005 Zoster Immunization (1 of 2) 2005 SARS-COV-2 Immunization (1 - 2023- season) 2024 Influenza Immunization (#1) 2025 Respiratory Syncytial Virus (RSV) Immunization (Adult) [...] patient's age to complete this topic Insurance [facility] Care Teams Trimming Assembler Relationship Specialty Start Date End Date King Horta MD [address] [place] [address] PCP - General Internal Medicine 12/23/17
--- OUTSIDE RECORDS SUMMARY | 2025-05-26 01:37 | XMS_ITS | Encounter Summary ---
Author Organization [facility] Address [address] [place] [address] Care Team Providers Care Fluoroscope Operator Name Role Phone Andie Crawley MD Primary Care Provider +1- [phone] Encounter Details Date Type Department Care Team (Late st Contact Info) Description 10/23/2020 Prep for Procedure [facility] Day [facility] [address] [place] [address] Ryan Molina MD [address] [facility] [address] [place] [address] Social History Tobacco Use Types Packs/Day Years Used Date Smoking Tobacco: Former Cigarettes 0.5 25 1 - 2014 Smokeless Tobacco: Never Comments No Sex and Gender Information Value Date Recorded Sex Assigned at Not on file Legal Sex Female 8:29 PM CDT Gender Identity Not on file Sexual Orientation Not on file COVID-19 Exposure Response Date Recorded In the last month, have you been in contact with someone who was confirmed or suspected to have Coronavirus / COVID-19? No / Unsure 10/26/2020 10:50 AM [facility] documented as of this encounter Plan of Treatment Not on file documented as of this encounter Results * PRE-SURGICAL/PRE-PROCEDURE CORONAVIRUS (COVID 19) (10/26/2020 11:01 AM [facility]) CORONAVIRUS SARS COV 2 PCR (RESP) NOT DETECTED NOT DETECTED 10/28/2020 12:51 AM [facility] [facility] Comment: A Not Detected (negative) test result [...] providers and patients using the following websites: https://www.[facility]home/Covid-19/HCP/NAAT/fact-sheet2 https://www.[facility]home/Covid-19/Patients/NAAT/ fact-sheet2 This test has been authorized by the FDA under an Emergency Use Authorization (EUA) for use by authorized laboratories. Due to the current public health emergency, [facility] is receiving a high volume of samples [...] about COVID-19 can be found at the [facility] website: www.[employer]etecture.[employer]Covid19. Test performed at [facility] [id number] [place] [phone] Director: LUIS MONTGOMERY DO,MPH FIRST TEST NO 10/26/2020 10:50 AM [facility] EMPLOYED IN HEALTHCARE NO 10/26/2020 10:50 AM [facility] SYMPTOMATIC DEFINED BY CDC NO 10/26/2020 10:50 AM [facility] DATE OF SYMPTOM ONSET =FASTING UNKNOWN 10/26/2020 11:08 AM [facility] [facility] HOSPITALIZATION STATUS NO 10/26/2020 10:50 AM [facility] [employer] [facility] [facility] PATIENT IN ICU NO 10/26/2020 10:50 AM [facility] [employer] [facility] [facility] RESIDENT OF CONGREGATE CARE NO 10/26/2020 10:50 AM [facility] [employer] [facility] NO 10/26/2020 11:08 AM [facility] [employer] [facility] PATIENT'S RACE WHITE OR 10/26/2020 10:50 AM [facility] [facility] ETHNICITY NONHISPANIC 10/26/2020 10:50 AM [facility] SOURCE (QST) NASOPHARYNGEAL SWAB 10/26/2020 10:50 AM [facility] [employer] [facility] NASOPHARYNGEAL SWAB / Unknown 10/26/2020 11:01 AM [facility] us Ryan Molina MD MICROBIOLOGY - GENERAL ORDERAB LES Final Result Performing Organization Address City/State/[facility] Co de Phone Number [facility] [address] [place] [address], [place] [address], documented in this encounter Visit Diagnoses Diagnosis Preoperative evaluation to rule out surgical contraindication- Primary Other specified pre-operative examination documented in this encounter Additional Health Concerns Infection Onset Date Last Indicated Resolved Time COVID-19 Rule Out 10/26/2020 10/26/2020 10/28/2020 12:51 AM [facility] documented as of this encounter Care Teams Fluoroscope Operator Relationship Specialty Start Date End Date Andie Crawley MD [address] [facility] [address] [place] [id number] PCP - General FAMILY PRACTICE 09/11/20 documented as of this encounter
--- OUTSIDE RECORDS SUMMARY | 2025-05-26 01:37 | XMS_ITS | Clinical Summary ---
Author Organization [facility] Address [address] [place] [address] Care Team Providers Care Remote Control Assembler Name Role Phone Andie Crawley MD Primary Care Provider +1- [phone] Allergies Active Allergy Reactions Criticality Noted Date Comments Iodine Anaphylaxis High 09/14/2020 Medications losartan 50 MG tablet Take 50 mg by mouth daily. Active amLODIPine 10 MG tablet Take 10 mg by mouth daily. Active FLUoxetine 20 MG capsule Take 20 mg by mouth daily. Active levETIRAcetam 1000 MG tablet Take 500 mg by mouth 2 (two) times daily. Active esomeprazole 40 MG capsule Take 40 mg by mouth every morning before breakfast. Active cyanocobalamin 1000 MCG/ML injection Inject into the muscle monthly. Active sodium chloride 0.9 % SOLN 100 mL with iron sucrose 20 MG/ML SOLN Inject into the vein every 6 (six) months. Active Active Problems No known active problems Social History Tobacco Use Types Packs/Day Years [...] Sign Reading Time Taken Comments Blood Pressure 156/85 10/29/2020 10:29 AM INFECTION CONTROL PRACTITIONER Pulse 68 10/29/2020 10:29 AM INFECTION CONTROL PRACTITIONER Temperature 36.1 C (97 F) 10/29/2020 8:50 AM INFECTION CONTROL PRACTITIONER Respiratory Rate 16 10/29/2020 10:29 AM INFECTION CONTROL PRACTITIONER Oxygen Saturation 100% 10/29/2020 10:29 AM INFECTION CONTROL PRACTITIONER Inhaled Oxygen Concentration - - Weight 85.3 kg (188 lb) 10/23/2020 1:19 PM INFECTION CONTROL PRACTITIONER Height 165.1 cm (5' 5) 10/23/2020 1:19 PM INFECTION CONTROL PRACTITIONER Body Mass Index 31.28 10/23/2020 1:19 PM INFECTION CONTROL PRACTITIONER Plan of Treatment Health Maintenance Due Date Last Done Comments Colorectal Cancer Screening Colonoscopy (10 Years) 1955 Hepatitis C 1973 DTaP, Tdap and Td Vaccines ( 1 - Tdap) 1974 Mammogram Screening 1995 Pneumococcal Vaccine: 50+ Ye ars (1 of 1 - PCV) 2005 Zoster Vaccines (2 of 3) 11/06/2015 09/11/2015 Annual Medicare Wellness Visit 2020 Dexa Scan (General) 2020 COVID-19 Vaccine ( - 2023-2 5 season) 2024 RSV Immunization or 60+ Years (1 - 1-dose 75+ series) 2030 Meningococcal B Vaccine Aged Out No l onger eligible based on patient's age to complete this topic Meningococcal Vaccine Aged Out No paxton saul eligible based on patient's age to complete this topic RSV Immunizations Under 20 Months Aged Out No longer eligible based on patient's age to complete this topic Medical Devices Implanted Type Area Field Services Manager Device Identifier Shelf Expiration Date Model / Serial / Lot Iol [employer] - [id number] Implanted:Qty: 1 on 09/24/2020 by Ryan Molina MD at [facility] Lens Right: Eye [employer] 06/17/2022 Z00 / [id number] / Iol [employer] Zcboo - [id number] Implanted:Qty: 1 on 10/29/2020 by Ryan Molina MD at [facility] Lens Left: Eye [employer] 08/22/2022 [id number] / [id number] / Insurance [employer] Care Teams Remote Control Assembler Relationship Specialty Start Date End Date Andie Crawley MD [address] [facility] [address] [place] [address] PCP - General FAMILY PRACTICE 09/11/20
--- OUTSIDE RECORDS SUMMARY | 2025-05-26 01:37 | XMS_ITS | Clinical Summary ---
Author Organization [facility] Address [address] [place] [address] Care Team Providers Care Wildlife Manager Name Role Phone King Horta MD Primary Care Provider Source Comments [facility],non-owned Affiliates and Associated Physician Practices is amultiple site organization consisting of ambulatory clinics and hospital sitesin [place], [place], [place] and [place]. This disclosure is being madepursuant to the Care Everywhere program and may not contain all information available regarding this patient. Last updated 18.[facility] Allergies Active Allergy Reactions Criticality Noted Date Comments Contrast-Iodinated Agents Fo r Ct/Other Other,Anaphylaxis High 12/25/2017 Povidone Iodine Anaphylaxis High 12/25/2017 Medications * Be aware that medications may not be up to date on this document. Alwaysverify current medications with the patient. fluticasone propionate (FLONASE) 50 MCG/ACT nasal spray [place] 1 spray twice a day by intranasal [...] Comments Blood Pressure 132/73 10/11/2018 3:27 PM GRAINING MACHINE OPERATOR Pulse 68 10/11/2018 3:27 PM GRAINING MACHINE OPERATOR Temperature 37.1 C (98.7 F) 10/11/2018 3:27 PM GRAINING MACHINE OPERATOR Respiratory Rate 18 10/11/2018 3:27 PM GRAINING MACHINE OPERATOR Oxygen Saturation 100% 10/11/2018 3:27 PM GRAINING MACHINE OPERATOR Inhaled Oxygen Concentration - - Weight 82.2 kg (181 lb 3.2 oz) 10/11/2018 3:27 P M GRAINING MACHINE OPERATOR Height 165.1 cm (5' 5) 10/11/2018 3:27 PM GRAINING MACHINE OPERATOR Body Mass Index 30.15 10/11/2018 3:27 PM GRAINING MACHINE OPERATOR Plan of Treatment Health Maintenance Due Date [...] season) 2024 DEPRESSION SCREENING 11/16/2024 INFLUENZA VACCINE (#1) 2025 8, 08/19/2017 Respiratory Syncytial Virus (RSV) Vaccine Pt: [...] (ABNORMAL) COMPREHENSIVE METABOLIC PANEL (08/20/2018 10:50 AM [facility]) BUN 8 7 - 26 mg/dL 08/20/2018 11:[address] [facility] Creatinine 0.7 0.6 - 1.2 mg/dL 08/20/2018 11:54 AM [facility] Sodium 138 136 - 145 mmol/L 08/20/2018 11:[address] [facility] Potassium 3.9 3.5 - 4.5 mmol/L 08/20/2018 11:54 AM [facility] Chloride 100 98 - 107 mmol/L 08/20/2018 11:54 AM [facility] CO2 31(H) 22 - 29 mmol/L 08/20/2018 11:54 AM [facility] Glucose 108 70 - 115 mg/dL 08/20/2018 11:54 AM [facility] Calcium 9.7 8.4 - 10.2 mg/dL 08/20/2018 11:54 AM [facility] Protein Total 7.5 6.0 - 8.3 g/dL 08/20/2018 11:54 AM [facility] Albumin 4.0 3.4 - 5.0 g/dL 08/20/2018 11:54 AM [facility] Bilirubin Total 0.8 0.2 - 1.2 mg/dL 08/20/2018 11:54 AM [facility] Alkaline Phosphatase 104 40 - 150 Units/L 08/20/2018 11:[address] [facility] ALT 11 0 - 55 Units/L 08/20/2018 11:54 AM [facility] AST 22 5 - 34 Units/L 08/20/2018 11:54 AM [facility] Anion Gap 11 8 - 18 08/20/2018 11:54 AM [facility] BUN/Creatinine Ratio 11 7 - 23 08/20/2018 11:[address] [facility] Osmolality Calculated 285 270 - 300 mOsm/kg 08/20/2018 11:54 AM CDT [facility] Albumin/Globulin Ratio 1.1 1.1 - 2.3 08/20/2018 11:54 AM CDT [facility] eGFR >60 >60 mL/min/1.7 3 m2 08/20/2018 11:54 AM CDT [facility] Blood BLOOD SPECIMEN / Unknown Lab Venipuncture / Unknown 08/20/2018 10:50 AM CDT 08/20/2018 11:19 AM CDT Stevenson Castro MD LAB - CHEMISTRY ORDERABLES F inal Result [place] [address] [address] [phone] from Last 3 Months or Most Recently Relevant to Health Maintenance Insurance [facility] Care Teams Wildlife Manager Relationship Specialty Start Date End Date King Horta MD [address] [place] [id number] PCP - General 08/20/18
[2025-07-05 16:11] VITALS: BMI 41.6
[2025-07-06] VITALS (28 sets, daily range): BP systolic 114–162; BP diastolic 60–112; PULSE 72–83; RESP 12–22; TEMP 36.7; O2SAT 94–100; BMI 35.6
--- OUTSIDE RECORDS SUMMARY | 2025-07-06 00:47 | XMS_ITS | Clinical Summary ---
Author Organization [facility] Address [address] [place] [address] Care Team Providers Care Orthotic/Prosthetic Clinician Name Role Phone Isaac Longoria MD Primary Care Provider [phone] Allergies Active Allergy Reactions Criticality Noted Date [...] daily. Active fluticasone propionate (FLONASE) 50 mcg/spray [place], Suspension nasal inhaler Administer 2 Sprays in [...] Encounters Date Type Department Care Team Description 05/31/2025 External Device Data [facility] Provider, Abstract 05/30/2025 External Device Data [facility] Provider, Abstract 05/02/2025 External Device Data [facility] Provider, Abstract 05/01/2025 10:00 AM CDT Office Visit [facility] Oncology and Hematology [facility] [address] [place] [address] Chauncey Zhang MD Chronic anemia (Primary Dx) 04/26/2025 Orders Only [facility] Oncology and Hematology [facility] [address] [place] [address] Chauncey Zhang MD 04/11/2025 External Device Data [...] on file Legal Sex Female 4:21 PM DOCK COORDINATOR Gender Identity Not on file Sexual Orientation [...] Description 05/02/2026 10:15 AM CDT Office Visit [facility] Oncology and Hematology - [place] [address] [facility] [address] [place] [address] Chauncey Zhang MD [address] [facility] [address] [place] [address] Health Maintenance Due Date Last [...] Res ult from Last 3 Months Insurance [facility] [employer] Medicare Part D Advance Directives For more information, please contact: [phone] * Full Code (Latest Code Status on File) Date Activated Date Inactivated Comments 08/10/2019 9:41 AM 08/16/2019 7:18 PM Care Teams Orthotic/Prosthetic Clinician Relationship Specialty Start Date End Date Isaac Longoria MD [address] [facility] [address] [place] [id number] PCP - General Family Practice 05/01/25
--- OUTSIDE RECORDS SUMMARY | 2025-07-06 00:47 | XMS_ITS | Encounter Summary ---
Author Organization [facility] Address [address] [place] [address] Care Team Providers Care Bakery Products Checker Name Role Phone Andie Crawley MD Primary Care Provider [phone] Encounter Details Date Type Department Care Team (Late st Contact Info) Description 10/23/2020 Prep for Procedure [facility] [address] [place] [address] Ryan Molina MD [address] [facility] [address] [place] [place] [id number] Social History [...] COVID-19? No / Unsure 10/26/2020 10:50 AM PROFESSIONAL PROGRAMMER ANALYST documented as of this encounter Plan of Treatment Not on file documented as of this encounter Results * PRE-SURGICAL/PRE-PROCEDURE CORONAVIRUS (COVID 19) (10/26/2020 11:01 AM PROFESSIONAL PROGRAMMER ANALYST) CORONAVIRUS SARS COV 2 PCR (RESP) NOT DETECTED NOT DETECTED 10/28/2020 12:51 AM PROFESSIONAL PROGRAMMER ANALYST [facility] Comment: A Not Detected (negative) test result [...] providers and patients using the following websites: https://[email or web address] Club Hub/home/Covid-19/HCP/NAAT/fact-sheet2 https://www.[employer] Club Hub/home/Covid-19/Patients/NAAT/ fact-sheet2 This test has been authorized by the FDA under an Emergency Use Authorization (EUA) for use by authorized laboratories. Due to the current public health emergency, [facility] is receiving a high volume of samples [...] about COVID-19 can be found at the [facility] website: www.[employer] Club Hub/Covid19. Test performed at [facility] [place] [id number] [place] [id number] Director: LUIS MONTGOMERY DO,MPH FIRST TEST NO 10/26/2020 10:50 AM [facility] EMPLOYED IN HEALTHCARE NO 10/26/2020 10:50 AM [facility] SYMPTOMATIC DEFINED BY CDC NO 10/26/2020 10:50 AM [facility] DATE OF SYMPTOM ONSET =FASTING UNKNOWN 10/26/2020 11:08 AM PROFESSIONAL PROGRAMMER ANALYST [facility] HOSPITALIZATION STATUS NO 10/26/2020 10:50 AM PROFESSIONAL PROGRAMMER ANALYST [facility] PATIENT IN ICU NO 10/26/2020 10:50 AM PROFESSIONAL PROGRAMMER ANALYST [facility] RESIDENT OF CONGREGATE CARE NO 10/26/2020 10:50 AM PROFESSIONAL PROGRAMMER ANALYST [facility] NO 10/26/2020 11:08 AM PROFESSIONAL PROGRAMMER ANALYST [facility] PATIENT'S RACE WHITE OR 10/26/2020 10:50 AM PROFESSIONAL PROGRAMMER ANALYST [facility] ETHNICITY NONHISPANIC 10/26/2020 10:50 AM PROFESSIONAL PROGRAMMER ANALYST [facility] SOURCE (QST) NASOPHARYNGEAL SWAB 10/26/2020 10:50 AM PROFESSIONAL PROGRAMMER ANALYST [facility] NASOPHARYNGEAL SWAB / Unknown 10/26/2020 11:01 AM PROFESSIONAL PROGRAMMER ANALYST us Ryan Molina MD MICROBIOLOGY - GENERAL ORDERAB LES Final Result Performing Organization Address City/State/[facility] Co de Phone Number [facility] [address] [place] [address], [place] [address], documented in this encounter Visit Diagnoses Diagnosis Preoperative evaluation to rule out surgical contraindication- Primary Other specified pre-operative examination documented in this encounter Additional Health Concerns Infection Onset Date Last Indicated Resolved Time COVID-19 Rule Out 10/26/2020 10/26/2020 10/28/2020 12:51 AM PROFESSIONAL PROGRAMMER ANALYST documented as of this encounter Care Teams Bakery Products Checker Relationship Specialty Start Date End Date Andie Crawley MD [address] [facility] [address] [place] [id number] PCP - General FAMILY PRACTICE 09/11/20 documented as of this encounter
--- OUTSIDE RECORDS SUMMARY | 2025-07-06 00:48 | XMS_ITS | Clinical Summary ---
Author Organization [facility] Address [address] [place] [address] Phone Care Team Providers Care Head Bander And Liner Operator Name Role Phone King Horta MD Primary [...] on file Legal Sex Female 8:28 AM CURATOR OF EDUCATION Gender Identity Not on file Sexual Orientation Not on file Last Filed Vital Signs Vital Sign Reading Time Taken Comments Blood Pressure 145/78 01/12/2018 10:02 AM CURATOR OF EDUCATION Pulse 54 01/12/2018 10:02 AM CURATOR OF EDUCATION Temperature 36.3 C (97.3 F) 01/12/2018 10:02 AM CURATOR OF EDUCATION Respiratory Rate 18 01/12/2018 10:02 AM CURATOR OF EDUCATION Oxygen Saturation 96% 01/12/2018 10:02 AM CURATOR OF EDUCATION Inhaled Oxygen Concentration - - Weight 79.1 kg (174 lb 6.4 oz) 01/12/2018 10:02 AM CURATOR OF EDUCATION Height 165.1 cm (5' 5) 01/12/2018 10:02 AM CURATOR OF EDUCATION Body Mass Index 29.02 01/12/2018 10:02 AM CURATOR OF EDUCATION Plan of Treatment Health Maintenance Due Date [...] patient's age to complete this topic Insurance [facility] Care Teams Head Bander And Liner Operator Relationship Specialty Start Date End Date King Horta MD [address] [place] [address] PCP - General Internal Medicine 12/23/17
--- OUTSIDE RECORDS SUMMARY | 2025-07-06 00:48 | XMS_ITS | Clinical Summary ---
Author Organization [facility] Address [address] [place] [address] Care Team Providers Care Needleworker Name Role Phone King Horta MD Primary Care Provider Source Comments [facility],non-owned Affiliates and Associated Physician Practices is amultiple site organization consisting of ambulatory clinics and hospital sitesin [place], [place], [place] and [place]. This disclosure is being madepursuant to the Care Everywhere program and may not contain all information available regarding this patient. Last updated 18.[facility] Allergies Active Allergy Reactions Criticality Noted Date Comments Contrast-Iodinated Agents Fo r Ct/Other Other,Anaphylaxis High 12/25/2017 Povidone Iodine Anaphylaxis High 12/25/2017 Medications * Be aware that medications may not be up to date on this document. Alwaysverify current medications with the patient. fluticasone propionate (FLONASE) 50 MCG/ACT nasal spray [place] 1 spray twice a day by intranasal [...] Comments Blood Pressure 132/73 10/11/2018 3:27 PM SAFETY GROOVING MACHINE OPERATOR Pulse 68 10/11/2018 3:27 PM SAFETY GROOVING MACHINE OPERATOR Temperature 37.1 C (98.7 F) 10/11/2018 3:27 PM SAFETY GROOVING MACHINE OPERATOR Respiratory Rate 18 10/11/2018 3:27 PM SAFETY GROOVING MACHINE OPERATOR Oxygen Saturation 100% 10/11/2018 3:27 PM SAFETY GROOVING MACHINE OPERATOR Inhaled Oxygen Concentration - - Weight 82.2 kg (181 lb 3.2 oz) 10/11/2018 3:27 P M SAFETY GROOVING MACHINE OPERATOR Height 165.1 cm (5' 5) 10/11/2018 3:27 PM SAFETY GROOVING MACHINE OPERATOR Body Mass Index 30.15 10/11/2018 3:27 PM SAFETY GROOVING MACHINE OPERATOR Plan of Treatment Health Maintenance [...] (ABNORMAL) COMPREHENSIVE METABOLIC PANEL (08/20/2018 10:50 AM [facility]) BUN 8 7 - 26 mg/dL 08/20/2018 11:54 AM [facility] Creatinine 0.7 0.6 - 1.2 mg/dL 08/20/2018 11:54 AM [facility] Sodium 138 136 - 145 mmol/L 08/20/2018 11:54 AM [facility] Potassium 3.9 3.5 - 4.5 [...] 40 - 150 Units/L 08/20/2018 11:54 AM [facility] ALT 11 0 - 55 Units/L 08/20/2018 11:54 AM [facility] AST 22 5 - 34 Units/L 08/20/2018 11:54 AM [facility] Anion Gap 11 8 - 18 08/20/2018 11:54 AM [facility] BUN/Creatinine Ratio 11 7 - 23 08/20/2018 11:54 AM [facility] Osmolality Calculated 285 270 - 300 mOsm/kg 08/20/2018 11:54 AM CDT [facility] Albumin/Globulin Ratio 1.1 1.1 - 2.3 08/20/2018 11:54 AM CDT [facility] eGFR >60 >60 mL/min/1.7 3 m2 08/20/2018 11:54 AM CDT [facility] Blood BLOOD SPECIMEN / Unknown Lab Venipuncture / Unknown 08/20/2018 10:50 AM CDT 08/20/2018 11:19 AM CDT Stevenson Castro MD LAB - CHEMISTRY ORDERABLES F inal Result [place] [id number] [address] [phone] from Last 3 Months or Most Recently Relevant to Health Maintenance Insurance [facility] Care Teams Needleworker Relationship Specialty Start Date End Date King Horta MD [address] [place] [id number] PCP - General 08/20/18
--- OUTSIDE RECORDS SUMMARY | 2025-07-06 00:48 | XMS_ITS | Clinical Summary ---
Author Organization [facility] Address [address] [place] [address] Care Team Providers Care Media Relations Intern Name Role Phone Andie Crawley MD Primary Care Provider [phone]- [phone] Allergies Active Allergy Reactions Criticality Noted Date [...] Comments Blood Pressure 156/85 10/29/2020 10:29 AM AWNING HANGER Pulse 68 10/29/2020 10:29 AM AWNING HANGER Temperature 36.1 C (97 F) 10/29/2020 8:50 AM AWNING HANGER Respiratory Rate 16 10/29/2020 10:29 AM AWNING HANGER Oxygen Saturation 100% 10/29/2020 10:29 AM AWNING HANGER Inhaled Oxygen Concentration - - Weight 85.3 kg (188 lb) 10/23/2020 1:19 PM AWNING HANGER Height 165.1 cm (5' 5) 10/23/2020 1:19 PM AWNING HANGER Body Mass Index 31.28 10/23/2020 1:19 PM AWNING HANGER Plan of Treatment Health Maintenance Due Date [...] this topic Medical Devices Implanted Type Area Tire Building Supervisor Device Identifier Shelf Expiration Date Model / Serial / Lot Iol Pam [employer]ision Zcboo - [id number] Implanted:Qty: 1 on 09/24/2020 by Ryan Molina MD at [facility] Lens Right: Eye [employer] 06/17/2022 [id number] / [id number] / Iol Pam [employer]ision Zcboo - [id number] Implanted:Qty: 1 on 10/29/2020 by Ryan Molina MD at [facility] Lens Left: Eye [employer] 08/22/2022 [id number] / [id number] / Insurance [employer] Care Teams Media Relations Intern Relationship Specialty Start Date End Date Andie Crawley MD [address] [facility] [address] [place] [address] PCP - General FAMILY PRACTICE 09/11/20
[2025-07-06 07:37] LABS: Hematocrit 39.1 % (37.0-47.0); Hemoglobin 12.4 g/dL (12.0-15.0); Immature Granulocyte Percent A 0.4 % (0-0.5); Lymphocytes Absolute Auto 0.42 K/mm3 (0.9-3.2); Mean Corpuscular HGB Conc 31.7 g/dl (32-36); Mean Corpuscular Hemoglobin 28.8 pg (26-34); Mean Corpuscular Volume 90.7 fl (80-100); Nucleated Red Blood Cells Absolute Auto 0.000 K/mm3 (0.0-0.012); Nucleated Red Blood Cells Perc 0.0 % (0.0-0.2); Platelet Count Result 377 k/mm3 (150-375); Red Blood Count 4.31 M/mm3 (4.2-5.4); White Blood Count 8.4 K/mm3 (4.5-10.0)
[2025-07-06 07:57] LABS: Anion Gap 9 mmol/L (4-12); Blood Urea Nitrogen 16 mg/dL (7-17); Calcium 9.2 mg/dL (8.4-10.2); Carbon Dioxide 25 mmol/L (22-30); Chloride 103 mmol/L (98-107); Estimated CRCL calculation 80 ml/min; Estimated Glomerular Filt Rate > 60; Glucose 167 mg/dL (65-110); Potassium 4.1 mmol/L (3.4-5.0); Sodium 137 mmol/L (137-145)
--- NOTE | 2025-07-06 08:44 | WPDHPUPDATE1 ---
History and Physical Update Update Date/Time: 07/06/25 08:30 History and Physical has been reviewed, including an updated exam of the patient. There are NO changes in the patient's condition. Risks, benefits, and alternatives have been discussed and questions answered. Patient agrees to proceed with procedure.
--- NOTE | 2025-07-06 08:45 | WPDMODSED ---
Moderate Sedation Note-Pt Data Patient Data Allergies Allergy/AdvReac Type Severity Reaction Status Date / Time iodine Allergy Severe Anaphylactic Verified 04/26/25 09:24 Shock denosumab (From Prolia) AdvReac Severe arthralgia Verified 04/26/25 09:24 celecoxib (From Celebrex) AdvReac Intermediate Other Verified 04/26/25 09:24 IV DYE, IODINE CONTAINING Allergy Severe anaphylactic Uncoded 04/26/25 09:24 CONTRAST shock Home Medications ?Medication ?Instructions ?Recorded ?Confirmed ?Type Bacillus coagulans 250 million 1 cell PO DAILY 01/02/20 07/05/25 History cell chewable tablet (Digestive Advantage Probiotic Gummy) calcium carbonate (Calcium 500) 500 mg PO DAILY 01/02/20 07/05/25 History multivitamin (Chewable-Dmitry tablet) 1 tablet PO DAILY 01/02/20 07/05/25 History cyanocobalamin (vitamin B-12) See Rx Instructions .Route 10/05/23 07/05/25 Rx 1,000 mcg/mL injection solution .COMPLEX #3 mL (Dodex) fluticasone propionate 50 1 spray intranasal Q12H #16 grams 01/29/24 07/05/25 Rx mcg/actuation nasal spray,suspension amlodipine 10 mg tablet See Rx Instructions .Route 11/06/24 07/05/25 Rx .COMPLEX #90 tabs ibandronate 150 mg tablet See Rx Instructions .Route 12/07/24 07/05/25 Rx .COMPLEX #3 tabs fluoxetine 20 mg capsule See Rx Instructions .Route 02/20/25 07/05/25 Rx .COMPLEX #180 caps aspirin 81 mg tablet 81 mg PO DAILY 04/21/25 07/05/25 History diphenhydramine HCl 50 mg tablet 50 mg PO ONCE #1 tablet 04/21/25 07/05/25 Rx (Benadryl Allergy) prednisone 50 mg tablet 50 mg PO DAILY #3 tabs 04/21/25 07/05/25 Rx buspirone 5 mg tablet See Rx Instructions .Route 04/24/25 07/05/25 Rx .COMPLEX #180 tabs losartan 50 mg tablet 50 mg PO DAILY 04/26/25 07/05/25 History fluticasone fur. 100 mcg-umeclid 1 inh inhalation DAILY #60 ea 05/24/25 07/05/25 Rx 62.5 mcg-vilant 25 mcg inhalat.powder (Trelegy Ellipta) rosuvastatin 5 mg tablet See Rx Instructions .Route 06/07/25 07/05/25 Rx .COMPLEX #90 tabs Sedation/Anesthesia: No previous sedation/anesthesia problems (including family history). 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 Weakness Fatigue Hypoglycemia Epidermoid cyst of finger Cyst of finger Colon cancer screening Post-menopausal AMALIA (generalized anxiety disorder) MDD (major depressive disorder), recurrent episode, moderate Injury of foot, left Fusion of lumbar spine Osteoporosis Left radial head fracture Tibial plateau fracture, left Tibia fracture Complicated grieving Chronic pain Arthritis Mild vitamin D deficiency Breast cancer screening Chronic anemia Bradycardia Chronic pain after traumatic injury Spinal stenosis at L4-L5 level Other fracture of sacrum, sequela Chronic back pain Anemia Anxiety Depression Thyromegaly Arthritis Cyst of right kidney Rectal polyp Diverticulitis Bilateral inguinal hernia Gallbladder disease GERD (gastroesophageal reflux disease) HTN (hypertension) HLD (hyperlipidemia) Peripheral neuropathy Early cataracts, bilateral Surgical History Surgical History History of foot surgery Lt 2nd metatarsal exostosis removal/ hammer toe correction DOS: 10/13/2022 History of abdominoplasty S/P cervical spinal fusion x3 H/O: hysterectomy H/O tubal ligation H/O bilateral inguinal hernia repair History of cholecystectomy H/O gastric bypass Family History Family History Mother Diabetes mellitus Hypertension Asthma Family history of arthritis COPD (chronic obstructive pulmonary disease) Father Hypertension Asthma Family history of arthritis Family history of kidney disease Heart disease Acute myocardial infarction Sibling Patient's brother is in good health COVID-19, Onset Age: 72 sister Acute myocardial infarction Other Arthritis Depression High cholesterol Social History Social History Social History: Smoking packs per day: 1 Smoking cigarettes per day: 20.0 Years smoked: 13 Smoking pack-years: 13.00 Smoking status: Former smoker Tobacco type: cigarettes Second hand tobacco smoke exposure: Yes Smoking end date: 11/16/18 Alcohol intake: never Substance use: never Substance use type: does not use Do You Feel Safe in your Home?: Yes Lack of Transportation: No Lack of Food: Never True Current Housing: I Have Housing Concerned About Future Housing: No Difficulty Paying Gas/Electric Bills: No Difficulty Paying for Meds: No Currently Unemployed: No Education: Bachelor's Degree Difficulty w/ Childcare or Family Care: No Living arrangements: with family Occupation/Education: retired Gender identity (if verbalized by the patient): Female Sexual Orientation (if Verbalized by the Patient): Straight or Heterosexual Spiritual care concerns: No Mod Sed Physical Exam Physical Exam Pre Procedural Exam: Normal: Lungs, Heart Size, Heart Rate and Heart Rhythm Hours since solid foods: 12 Hours since liquid intake: 12 Mallampati Classification: class II Internal Medicine - PN: Obj Da Vital Signs Vital Signs: Vital Signs - 24 hr 07/06/25 07:00 Temperature 36.7 C Pulse Rate 79 Respiratory Rate 21 H Blood Pressure 131/66 Pulse Oximetry 97 Oxygen Delivery Room Air Intake/Output Intake/Output: Intake & Output 07/03/25 07/04/25 07/05/25 07/06/25 23:59 23:59 23:59 23:59 Intake Total 0 Balance 0 Labs 07/06/25 07:27 07/06/25 07:27 Labs: Laboratory Results - last 24 hr 07/06/25 07:27 WBC 8.4 RBC 4.31 Hgb 12.4 Hct 39.1 MCV 90.7 MCH 28.8 MCHC 31.7 L RDW 14.4 Plt Count 377 H MPV 9.4 Immature Gran % (Auto) 0.4 Neut % (Auto) 94.0 H Lymph % (Auto) 5.0 L Page % (Auto) 0.5 L Eos % (Auto) 0.0 Baso % (Auto) 0.1 L Lymph # (Auto) 0.42 L Page # (Auto) 0.0 L Eos # (Auto) 0.0 Baso # (Auto) 0.0 Abs Immat Gran (auto) 0.03 Absolute Neuts (auto) 7.9 H Absolute Nucleated RBC 0.000 Nucleated RBC % 0.0 Sodium 137 Potassium 4.1 Chloride 103 Carbon Dioxide 25 Anion Gap 9 BUN 16 Creatinine 0.65 L Estim Creat Clear Calc 80 Estimated GFR > 60 Glucose 167 H Calcium 9.2 ASA Classification/Sedation ASA Classification/Sedation ASA Class: III Emergent: No Risks: Risks, benefits and alternatives explained and patient/family accepted plan for sedation. Patient re-evaluated immediately prior to sedation.
[2025-07-06] MEDS: SODIUM CHLORIDE 0.9% IV 1,000 ML 200 ML IV CONT (10:00)
--- NOTE | 2025-07-06 10:05 | P.PCNCC_ITS ---
Cardiac Cath Procedure Note Date of procedure:: 07/06/25 Performing physician:: CATHETERIZATION LABORATORY REPORT Procedure Date: 07/06/2025 Referring Physician: Dr. Jay Anesthesia: Versed and Fentanyl were ordered and given in my presence at 0916, procedure ended at 1002. Supervision of nurse, Donna Mcclain monitored moderate sedation with 2mg Versed and 150mcg Fentanyl was provided for 46 minutes. Pre-op Diagnosis: Abnormal nuclear stress test Post-op Diagnosis: Abnormal nuclear stress test Procedure(s): Left heart catheterization with coronary angiography Percutaneous coronary intervention Access Site: Right radial artery Brief History and Clinical Indications: 70 with hypertension and hyperlipidemia was found to have chest pain during preop cardiac clearance leading to stress test that was abnormal for which a car diac catheterization with possible PCI was recommended. All risks, benefits and alternatives to left heart catheterization with or without percutaneous coronary intervention was discussed at length with the patient. Risk of complications including but not limited to bleeding, infection, arrhythmia, stroke, worsening kidney function, blood loss, groin hematoma, limb loss, emergency coronary artery bypass grafting, and even were discussed with the patient and all questions were answered. The patient understood and wished to proceed. Time out called, patient name, date of , medical record number, allergies, procedure performed, identify Deputy Sheriff Building Guard, patient and staff member concurred with accurate data, procedure carried on. Findings: LEFT HEART CATHETERIZATION FINDINGS: 1. Left main: The left main coronary artery is widely patent without any significant obstructive disease. 2. Left anterior descending: The LAD gives off 5 diagonal branches. The LAD itself has luminal irregularities with myocardial bridging in its mid body. The 1st diagonal branch has 30-40% stenosis. The remaining diagonal branches are small caliber vessels. 3. Left circumflex: The left circumflex artery gives off 3 OM branches. The left circumflex itself has luminal irregularities. OM1 is a moderate caliber vessel supplying moderate-sized territory with a 80-90% stenosis in its proximal body. OM2 and OM3 are small caliber vessels. 4. Right coronary artery: The RCA is a large dominant vessel with diffuse 10% stenosis. 5. Left ventricle: A. End-diastolic pressure 32 mmHg. B. LV gram deferred. C. No significant gradient across aortic valve on catheter pullback. 6. Opening AO pressure 125/71 and closing AO pressure 112/64 Description of Procedure: Informed consent signed and placed in the chart. Patient transferred to labor relations specialist room. Prepped and draped in usual sterile fashion. 2% lidocaine injected subcutaneously in right wrist area. 22-gauge venipuncture catheter used to access the right radial artery with the Seldinger technique. 6- FR slender sheath placed in right radial artery. Nitroglycerin 200mcg, Verapamil 2.5mg, and Heparin 5000U was given intraarterial through the sheath. J wire advanced under fluoroscopy. 5F Ultra diagnostic catheter engaged Left Main Coronary Artery. 5F Ultra diagnostic catheter engaged Right Coronary Artery Multiple orthogonal angiogram obtained and reviewed 5F Pigtail catheter crossed aortic valve to obtain LVEDP, LV angiogram deferred. Procedure Description for PCI: Heparin was used for anticoagulation (ACT maintained above 250) Patient loaded with heparin at 70 units/kg. 6F EBU3.5 guide catheter was used to intubate the LMCA. 0.014 Runthrough coronary wire was passed in to the distal OM1 with the aid of a MicroRx catheter given the very tortuous path of the vessel. The lesion was pre-dilated with a 3.0 x 10mm balloon inflated to nominal pressures. A 3.0 x 12mm [place] ISAMAR was successfully deployed into OM1 at 14atm with excellent angiographic results. Intracoronary NTG was administered. All intracoronary equipment was removed under fluoroscopy. Follow-up angiograms showed an excellent result. Pre-procedure - AUDELIA 3 flow Post-procedure - AUDELIA 3 flow No angiographic complications identified. Assessment: Successful PCI to OM1 high grade lesion with a 3.0 x 12mm [place] ISAMAR with excellent angiographic results. Post Operative Condition: Stable No significant blood loss Disposition: Home Plan: The patient will be monitored in the recovery area. DAPT for 6 months followed by ASA indefinitely. The above findings were discussed with the referring physician. Continue aggressive medical therapy and risk factor modification. Khalif Iniguez Interventional Cardiology
== END 2025-07-06 16:45 | disposition home or self-care (01) ==
PROVIDERS: PCP Family Medicine; Visit Provider Internal Medicine
PROC: 4A023N7 Measurement of Cardiac Sampling and Pressure, Left Heart, Percutaneous Approach (ICD-10-PCS; CPT 93452; principal; 2025-07-06 08:30)
PROC: 027034Z Dilation of Coronary Artery, One Artery with Drug-eluting Intraluminal Device, Percutaneous Approach (ICD-10-PCS; CPT 92928; 2025-07-06 08:30)
DX: I25.10 Atherosclerotic heart disease of native coronary artery without angina pectoris (principal); E78.5 Hyperlipidemia, unspecified; I10 Essential (primary) hypertension; E16.2 Hypoglycemia, unspecified; F41.9 Anxiety disorder, unspecified; M81.0 Age-related osteoporosis without current pathological fracture; E55.9 Vitamin D deficiency, unspecified; D64.9 Anemia, unspecified; K21.9 Gastro-esophageal reflux disease without esophagitis; M19.079 Primary osteoarthritis, unspecified ankle and foot; J42 Unspecified chronic bronchitis; G47.10 Hypersomnia, unspecified; R00.1 Bradycardia, unspecified; F33.1 Major depressive disorder, recurrent, moderate; G89.29 Other chronic pain; M54.9 Dorsalgia, unspecified; G62.9 Polyneuropathy, unspecified; Z79.83 Long term (current) use of bisphosphonates; Z79.82 Long term (current) use of aspirin; Z79.52 Long term (current) use of systemic steroids; Z79.51 Long term (current) use of inhaled steroids; Z98.890 Other specified postprocedural states; Z98.1 Arthrodesis status; Z98.51 Tubal ligation status; Z90.49 Acquired absence of other specified parts of digestive tract; Z87.891 Personal history of nicotine dependence; Z86.0100 Personal history of colon polyps, unspecified; Z87.19 Personal history of other diseases of the digestive system; Z82.49 Family history of ischemic heart disease and other diseases of the circulatory system
CPT/HCPCS: 36415; 80048; 85025; 93458; A9270; C1769; C1874; C1887; C1894; C7532; C9600; J1644; J2003; J2250; J2305; J3010; J7040

== ENCOUNTER 2025-10-26 03:47 | Day surgery (SDC) | payer MEDICARE, SELFPAY ==
[2025-10-11 09:23] VITALS: BMI 33.7
--- NOTE | 2025-10-11 09:38 | PC.NURSE ---
[facility] has started construction of its new state of the art ER which will open Spring 2026. With this, we anticipate parking may be a challenge for some our surgical patients and families. Parking spaces are limited but are available for all Surgical, obstetrics, and ER patients sharing this lot. If you arrive and find you are having a hard time finding a parking space, please note that we understand the challenges, please drive around the hospital and park near Hospital Entrance 1. When you enter this entrance, you can ask a volunteer to direct or take you back to the surgical waiting area to check in. We appreciate everyone?s understanding of these expected challenges while we build for your future. Report to the Outpatient Waiting Room, entrance under the green pavilion located off [address], at time __06:00am on date _10/26/25 . Planned Procedure Time: 07:30am .? Time changes happen often and if your time is changed the preop area will call you the afternoon before. - You and your visitor will be asked to self-screen and do not enter if you have any COVID symptoms. Please call surgeon if you need to reschedule. - A mask is optional within the hospital at this time. Patients may have clear liquids (water, carbonated beverages, clear teas, apple juice) until 3 hours prior to surgery with a maximum of 20 ounces. - No food from midnight until time of surgery and no smoking, or chewing tobacco (or any form of nicotine). No chewing gum, candy or mints.( 0430am) Take only the following medications with a SIP of water on the morning of surgery: ____Buspirone, Fluoxetine, and Ellipta Inhaler, Tylenol if needed DO NOT STOP ANY OF YOUR OTHER PRESCRIPTION MEDICATIONS PRIOR TO SURGERY EXCEPT THE FOLLOWING Hold all vitamins and supplements for 3 days per anesthesiologist. Medications to discontinue per physician ____HOLD for Plavix for [address] Jay/Maninder Date to take last dose 10/20/25 Please no make-up, nail english, hairspray, perfume, deodorant, or body powder the day of surgery.? No jewelry (including any body piercings) or valuables the day of surgery, leave them at home.? Please take a shower or bath the night before, or the morning of, surgery with an antibacterial soap.? GOLD DIAL Wear comfortable, loose fitting clothing.? - Jewelry must be removed prior to entering the operating room.? Rings and piercings that are not removed may be cut off. - The hospital will not accept responsibility for valuables.? - Please leave all valuables, including medications, at home the day of surgery. If you are going home after surgery, a licensed delivery driver must drive you home.? - NO public transportation without another adult if you receive anesthesia. - We recommend that an adult stay with you for 24 hours following discharge. - We also recommend that you do not drive, make important decision, drink alcoholic beverages, or take any drugs that were not prescribed by your health care provider for at least 24 hours after your discharge time. Follow any additional instructions given to you from your surgeon. Telephone instructions given to ___Patient and asked if any additional questions and then verbalized understanding. Patient advised to call surgeon office or pre surgery nurse liaison [phone] if any additional questions.
--- NOTE | 2025-10-25 13:09 | PM.IMHP2 ---
H&P: HPI History of Present Illness Date/Time: 10/25/25 13:09 Chief Complaint: Right foot arthritis and pain Narrative: 70-year-old with several year history of right foot pain and discomfort. Difficulty with activity. Difficulty at rest. Symptoms wake the patient up at night. Failed conservative treatment with injections, bracing, therapy. Review of Systems Constitutional: Constitutional: Denies headache(s) and Denies weakness Eyes: Eyes: Denies blurry vision ENT: Reports Normal hearing present, Denies headache(s) and Denies neck pain Cardiovascular: Cardiovascular: Denies chest pain and Denies dyspnea Respiratory: Respiratory: Denies dyspnea Gastrointestinal: Gastrointestinal: Reports no additional gastrointestinal complaints Genitourinary: Genitourinary: Denies dysuria Musculoskeletal: Musculoskeletal: Denies neck pain Integumentary/Breasts: Skin/Breast: Denies dry skin Neurologic: Reports Normal hearing present, Denies headache(s) and Denies weakness Psychiatric: Psychiatric: Denies anxiety Endocrine: Endocrine: Denies change in body appearance Hematologic/Lymphatic: Hematologic/Lymphatic: Denies easy bleeding Allergic/Immunologic: Allergic/Immunologic: Denies urticaria PMFSH Past Medical History Medical History Acquired hallux valgus of left foot Tarsal tunnel syndrome, right lower limb Arthritis of foot, degenerative Stress at home BMI 32.0-32.9,adult Abnormality of gait Lumbar back sprain Contusion of hip, left Contusion of forearm, right Rhinitis Chronic bronchitis Muscle strain Cough Hypersomnia Lung nodule Immunization counseling Bradycardia Hammertoe of left foot 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 Weakness Fatigue Hypoglycemia Epidermoid cyst of finger Cyst of finger Colon cancer screening Post-menopausal AMALIA (generalized anxiety disorder) MDD (major depressive disorder), recurrent episode, moderate Injury of foot, left Fusion of lumbar spine Osteoporosis Left radial head fracture Tibial plateau fracture, left Tibia fracture Complicated grieving Chronic pain Arthritis Mild vitamin D deficiency Breast cancer screening Chronic anemia Bradycardia Chronic pain after traumatic injury Spinal stenosis at L4-L5 level Other fracture of sacrum, sequela Chronic back pain Anemia Anxiety Depression Thyromegaly Arthritis Cyst of right kidney Rectal polyp Diverticulitis Bilateral inguinal hernia Gallbladder disease GERD (gastroesophageal reflux disease) HTN (hypertension) HLD (hyperlipidemia) Peripheral neuropathy Early cataracts, bilateral Surgical History Surgical History History of foot surgery Lt 2nd metatarsal exostosis removal/ hammer toe correction DOS: 10/13/2022 History of abdominoplasty S/P cervical spinal fusion x3 H/O: hysterectomy H/O tubal ligation H/O bilateral inguinal hernia repair History of cholecystectomy H/O gastric bypass Family History Family History Mother Diabetes mellitus Hypertension Asthma Family history of arthritis COPD (chronic obstructive pulmonary disease) Father Hypertension Asthma Family history of arthritis Family history of kidney disease Heart disease Acute myocardial infarction Sibling Patient's brother is in good health COVID-19, Onset Age: 72 sister Acute myocardial infarction Other Arthritis Depression High cholesterol Social History Social History Social History: Smoking packs per day: 1 Smoking cigarettes per day: 20.0 Years smoked: 13 Smoking pack-years: 13.00 Smoking status: Former smoker Tobacco type: cigarettes Second hand tobacco smoke exposure: Yes Smoking end date: 11/16/18 Alcohol intake: never Substance use: never Substance use type: does not use Lack of Transportation: No Lack of Food: Never True Current Housing: I Have Housing Concerned About Future Housing: No Difficulty Paying Gas/Electric Bills: No Difficulty Paying for Meds: No Currently Unemployed: No Education: Bachelor's Degree Difficulty w/ Childcare or Family Care: No Living arrangements: with family Additional living arrangements comments: Occupation/Education: retired Gender identity (if verbalized by the patient): Female Sexual Orientation (if Verbalized by the Patient): Straight or Heterosexual Spiritual care concerns: No Meds Home Medications and Allergies Home Medications ?Medication ?Instructions ?Recorded ?Confirmed ?Type Bacillus coagulans 250 million 1 cell PO DAILY 01/02/20 10/25/25 History cell chewable tablet (Digestive Advantage Probiotic Gummy) calcium carbonate (Calcium 500) 500 mg PO DAILY 01/02/20 10/25/25 History multivitamin (Chewable-Dmitry tablet) 1 tablet PO DAILY 01/02/20 10/25/25 History cyanocobalamin (vitamin B-12) See Rx Instructions .Route 10/05/23 10/25/25 Rx 1,000 mcg/mL injection solution .COMPLEX #3 mL (Dodex) fluoxetine 20 mg capsule See Rx Instructions .Route 02/20/25 10/25/25 Rx .COMPLEX #180 caps aspirin 81 mg tablet 81 mg PO DAILY 04/21/25 10/25/25 History buspirone 5 mg tablet See Rx Instructions .Route 04/24/25 10/25/25 Rx .COMPLEX #180 tabs rosuvastatin 5 mg tablet See Rx Instructions .Route 06/07/25 10/25/25 Rx .COMPLEX #90 tabs amlodipine 10 mg tablet See Rx Instructions .Route 08/28/25 10/25/25 Rx .COMPLEX #90 tabs losartan 50 mg tablet 50 mg PO DAILY #90 tabs 08/28/25 10/25/25 Rx clopidogrel 75 mg tablet (Plavix) 75 mg PO DAILY #90 tabs 09/26/25 10/25/25 Rx Held on 10/11/25. Instructions: .Provider Order ibandronate 150 mg tablet See Rx Instructions .Route 09/27/25 10/25/25 Rx .COMPLEX #3 tabs fluticasone fur. 100 mcg-umeclid 1 inh inhalation DAILY #60 ea 10/18/25 10/25/25 Rx 62.5 mcg-vilant 25 mcg inhalat.powder (Trelegy Ellipta) Allergies Allergy/AdvReac Type Severity Reaction Status Date / Time iodine Allergy Severe Anaphylactic Verified 10/25/25 07:18 Shock denosumab (From Prolia) AdvReac Severe arthralgia Verified 10/25/25 07:18 celecoxib (From Celebrex) AdvReac Intermediate Other Verified 10/25/25 07:18 IV DYE, IODINE CONTAINING Allergy Severe anaphylactic Uncoded 10/25/25 07:18 CONTRAST shock Exam Const: General: healthy appearing; No in distress or confusion Orientation/consciousness: oriented to person, oriented to place, oriented to time and No confusion HENMT: Head: normal to inspection, normocephalic and atraumatic Eyes: Conjunctivae: conjunctivae normal Sclera: sclerae normal Neck: Neck: supple and nontender Resp: Effort & Inspection: normal respiratory effort and no audible wheezes Cardio: Rate: regular rate Rhythm: regular rhythm Skin: General skin exam: no rashes or lesions noted Neuro: General: oriented to person, oriented to place, oriented to time and No confusion Extrem: Right upper extremity: normal to inspection Left upper extremity: normal to inspection Right lower extremity: normal capillary refill and ankle Details: normal to inspection, tenderness Location: anterolaterally and anteriorly, abnormal ROM Details: pain with active ROM Details: with dorsiflexion and with range as follows (ankle dorsiflexion -10 degrees, planter flexion 40 degrees, inverson 15 degrees, eversion 5 degrees) and crepitus Details: other (Anterior ankle); no swelling; no edema Left lower extremity: hip/thigh Details: normal to inspection; no tenderness and no swelling, knee Details: normal to inspection; no tenderness and no swelling, ankle Details: tenderness (Anterolateral ankle) Location: anteriorly, swelling (Mild anterior anterolateral), abnormal ROM Details: pain with active ROM Details: with dorsiflexion and with range as follows (Dorsiflexion-10 degrees, plantar flexion 40 degrees, eversion 5 degrees, inversion 15 degrees) and crepitus (Anterior ankle) and foot Details: abnormal to inspection (Mild increased arch height) Details: a deformity (Cavus), tenderness Location: of the dorsal foot, edema (Mild lateral hindfoot), vascular exam (2+ Dorsalis pedis pulse) and motor-sensory exam (Strenght 5/5 plantar flexion and inversion. Tibialis anterior and peroneal 5/5) two point discrimination normal in all toes and light-touch normal; edema noted and no ecchymosis Psych: Affect: normal affect Assessment and Plan Assessment and plan (1) Arthritis of foot, degenerative: Qualifiers: Osteoarthritis type: primary Laterality: right Qualified Code(s): M19.071 - Primary osteoarthritis, right ankle and foot Code(s): M19.079 - Primary osteoarthritis, unspecified ankle and foot Status: Acute (2) Tarsal tunnel syndrome, right lower limb: Code(s): G57.51 - Tarsal tunnel syndrome, right lower limb Status: Acute Assessment and Plan: Updated history, physical exam and radiographs reviewed with the patient. Interval changes reviewed. previous workup revealed coronary artery disease. Patient underwent stent placement 4months ago. Follow-up evaluation for bilateral foot pain and deformity. Radiographs show degenerative changes. Exam consistent with right anterior tarsal tunnel and left hallux valgus. Discussed the condition, nature, etiology and course of natural history with the patient. Treatment options including surgical and nonoperative treatment were reviewed. Risks and benefits of each as well as alternatives reviewed. The patient's questions were answered. Conservative treatment ice, compression and elevation. ? She wants to proceed with surgery. Discussed laboratory testing preoperative workup. Orders placed. Medical and cardiac clearance. Plan Surgical options reviewed with midfoot arthrodesis verses anterior tarsal tunnel release. She does not want undergo a large surgery and be off of her feet for that long and has declined arthrodesis. She has elected for tarsal tunnel release. Discussed limitations of the procedure. She also has pain over the anterolateral ankle. May consider cortisone injection if still symptomatic. ? Discussed nonoperative and operative treatment options with the patient. Risks and benefits of each as well as alternatives were reviewed. All of the patient's questions were answered. The risks of surgery reviewed including but not limited to: Neurovascular damage, wound complication, infection, blood clot, pulmonary embolus, stroke, myocardial infarction, and anesthetic risks up to and including . Continued pain and possible dysfunction were explained. Specific risks of the procedure including later recurrence of deformity. No guarantees were offered. If complications occur, the patient understands the need for further treatment, possible further surgery. Patient verbalizes understanding and wishes to proceed. ? PLAN: Right ankle anterior tarsal tunnel release
[2025-10-26] VITALS (8 sets, daily range): BP systolic 118–137; BP diastolic 59–88; PULSE 61–73; RESP 11–20; TEMP 36.1–36.3; O2SAT 94–100
--- OUTSIDE RECORDS SUMMARY | 2025-10-26 03:49 | XMS_ITS | Encounter Summary ---
Author Organization [facility] Address [address] [place] [address] Care Team Providers Care Coal Tower Operator Name Role Phone Andie Crawley MD Primary Care Provider [phone] Encounter Details Date Type Department Care Team (Late st Contact Info) Description 10/23/2020 Prep for Procedure [facility] Day [facility] [address] [place] [address] Ryan Molina MD [address] [facility] [address] [place] [place] [address] Social [...] COVID-19? No / Unsure 10/26/2020 10:50 AM PUDDLER HELPER documented as of this encounter Plan of Treatment Not on file documented as of this encounter Results * PRE-SURGICAL/PRE-PROCEDURE CORONAVIRUS (COVID 19) (10/26/2020 11:01 AM PUDDLER HELPER) CORONAVIRUS SARS COV 2 PCR (RESP) NOT DETECTED NOT DETECTED 10/28/2020 12:51 AM PUDDLER HELPER [facility] Comment: A Not Detected (negative) test result [...] providers and patients using the following websites: https://www.WebTeb.Addvocate/home/Covid-19/HCP/NAAT/fact-sheet2 https://www.WebTeb.Addvocate/home/Covid-19/Patients/NAAT/ fact-sheet2 This test has been authorized by the FDA under an Emergency Use Authorization (EUA) for use by authorized laboratories. Due to the current public health emergency, [facility] is receiving a high volume of samples [...] about COVID-19 can be found at the [facility] website: www.Hermes IQ.Addvocate/Covid19. Test performed at [facility] [place] [id number] [place] [id number] Director: LUIS MONTGOMERY DO,MPH FIRST TEST NO 10/26/2020 10:50 AM [facility] EMPLOYED IN HEALTHCARE NO 10/26/2020 10:50 AM [facility] SYMPTOMATIC DEFINED BY CDC NO 10/26/2020 10:50 AM [facility] DATE OF SYMPTOM ONSET =FASTING UNKNOWN 10/26/2020 11:08 AM [facility] HOSPITALIZATION STATUS NO 10/26/2020 10:50 AM PUDDLER [facility] PATIENT IN ICU NO 10/26/2020 10:50 AM PUD[facility] RESIDENT OF CONGREGATE CARE NO 10/26/2020 10:50 AM PUDDLER [facility] NO 10/26/2020 11:08 AM PUDDLER [facility] PATIENT'S RACE WHITE OR 10/26/2020 10:50 AM PUDDLER [facility] ETHNICITY NONHISPANIC 10/26/2020 10:50 AM PUDDLER [facility] SOURCE (QST) NASOPHARYNGEAL SWAB 10/26/2020 10:50 AM PUDDLER [facility] NASOPHARYNGEAL SWAB / Unknown 10/26/2020 11:01 AM PUDDLER HELPER us Ryan Molina MD MICROBIOLOGY - GENERAL ORDERAB LES Final Result Performing Organization Address City/State/[facility] Co de Phone Number [facility] [address] [place] [address], [place] [address], documented in this encounter Visit Diagnoses Diagnosis Preoperative evaluation to rule out surgical contraindication- Primary Other specified pre-operative examination documented in this encounter Additional Health Concerns Infection Onset Date Last Indicated Resolved Time COVID-19 Rule Out 10/26/2020 10/26/2020 10/28/2020 12:51 AM PUDDLER HELPER documented as of this encounter Care Teams Coal Tower Operator Relationship Specialty Start Date End Date Andie Crawley MD [address] [place] [id number] PCP - General FAMILY PRACTICE 09/11/20 documented as of this encounter
--- OUTSIDE RECORDS SUMMARY | 2025-10-26 03:49 | XMS_ITS | Clinical Summary ---
Author Organization [facility] Address [address] [place] [address] Care Team Providers Care Acid Patroller Name Role Phone Andie Crawley MD Primary Care Provider [phone] Allergies Active Allergy Reactions Criticality Noted Date [...] Comments Blood Pressure 156/85 10/29/2020 10:29 AM YARD STOCKER Pulse 68 10/29/2020 10:29 AM YARD STOCKER Temperature 36.1 C (97 F) 10/29/2020 8:50 AM YARD STOCKER Respiratory Rate 16 10/29/2020 10:29 AM YARD STOCKER Oxygen Saturation 100% 10/29/2020 10:29 AM YARD STOCKER Inhaled Oxygen Concentration - - Weight 85.3 kg (188 lb) 10/23/2020 1:19 PM YARD STOCKER Height 165.1 cm (5' 5) 10/23/2020 1:19 PM YARD STOCKER Body Mass Index 31.28 10/23/2020 1:19 PM YARD STOCKER Plan of Treatment Health Maintenance Due Date Last Done Comments Colorectal Cancer Screening Colonoscopy (10 Years) 1955 Hepatitis C 1973 DTaP, Tdap and Td Vaccines ( 1 - Tdap) 1974 Mammogram Screening 1995 Pneumococcal Vaccine: 50+ Years (1 of 1 - PCV) 2005 Zoster Vaccines (2 of 3) 11/06/2015 09/11/2015 Annual Medicare Wellness Visit 2020 Dexa Scan (General) 2020 COVID-19 Vaccine ( - 2024-2 6 season) 2025 Influenza Adult (#1) 2025 08/17/2020, 08/02/2018, 08/19/2017 RSV Immunization or 60+ Years (1 - 1-dose 75+ series) 2030 Hepatitis A Vaccines Aged Out 07/25/2015 No long er eligible based on patient's age to complete this topic Meningococcal B Vaccine Aged Out No l onger eligible based on patient's age to complete this topic Meningococcal Vaccine Aged Out No paxton saul eligible based on patient's age to complete this topic RSV Immunizations Under 20 Months Aged Out No longer eligible b ased on patient's age to complete this topic Medical Devices Implanted Type Area Investor Relations Associate Device Identifier Shelf Expiration Date Model / Serial / Lot Iol [employer] Zcboo - [id number] Implanted:Qty: 1 on 09/24/2020 by Ryan Molina MD at [facility] Lens Right: Eye [employer] 06/17/2022 [id number] / [id number] / Iol Pam [employer]ision Zcboo - [id number] Implanted:Qty: 1 on 10/29/2020 by Ryan Molina MD at [facility] Lens Left: Eye [employer] 08/22/2022 [id number] / [id number] / Insurance [facility] Care Teams Acid Patroller Relationship Specialty Start Date End Date Andie Crawley MD [address] [facility] [address] [place] [address] PCP - General FAMILY PRACTICE 09/11/20
--- OUTSIDE RECORDS SUMMARY | 2025-10-26 03:49 | XMS_ITS | Clinical Summary ---
Author Organization [facility] Address [address] [place] [address] Phone Care Team Providers Care Electronic Security Technician Name Role Phone King Horta MD Primary [...] on file Legal Sex Female 8:28 AM JAVA ENTERPRISE ARCHITECT Gender Identity Not on file Sexual Orientation Not on file Last Filed Vital Signs Vital Sign Reading Time Taken Comments Blood Pressure 145/78 01/12/2018 10:02 AM JAVA ENTERPRISE ARCHITECT Pulse 54 01/12/2018 10:02 AM JAVA ENTERPRISE ARCHITECT Temperature 36.3 C (97.3 F) 01/12/2018 10:02 AM JAVA ENTERPRISE ARCHITECT Respiratory Rate 18 01/12/2018 10:02 AM JAVA ENTERPRISE ARCHITECT Oxygen Saturation 96% 01/12/2018 10:02 AM JAVA ENTERPRISE ARCHITECT Inhaled Oxygen Concentration - - Weight 79.1 kg (174 lb 6.4 oz) 01/12/2018 10:02 AM JAVA ENTERPRISE ARCHITECT Height 165.1 cm (5' 5) 01/12/2018 10:02 AM JAVA ENTERPRISE ARCHITECT Body Mass Index 29.02 01/12/2018 10:02 AM JAVA ENTERPRISE ARCHITECT Plan of Treatment Health Maintenance Due Date Last Done Comments Hepatitis C Virus (HCV) Screening 1955 TdaP Immunization 1955 Cologuard 2000 Colonoscopy 2000 Colorectal Cancer Screening 2000 Immunochemical Fecal Occult Blood 2000 Pneumococcal Immunization (5 0+ years) (1 of 1 - PCV) 2005 Zoster Immunization (1 of 2) 2005 Influenza Immunization (#1) 2025 SARS-COV-2 Immunization (1 - 2024- season) 2025 Respiratory Syncytial Virus (RSV) Immunization (Adult) (1 - 1-dose 75+ series) 2030 Hepatitis B Immunization Aged Out No longer eligible based on patient's age to complete this topic Human Papillomavirus (HPV) Immunization (No Doses Required) Completed Meningococcal Immunization (ACWY) Aged Out No longer eligible based on patient's age to complete this topic Rotavirus Immunization Aged Out No lo nger eligible based on patient's age to complete this topic Insurance [facility] Care Teams Electronic Security Technician Relationship Specialty Start Date End Date King Horta MD [address] [place] [address] PCP - General Internal Medicine 12/23/17
--- OUTSIDE RECORDS SUMMARY | 2025-10-26 03:49 | XMS_ITS | Clinical Summary ---
Author Organization [facility] Address [address] [place] [address] Care Team Providers Care Seasonal Sales Associate Name Role Phone Isaac Longoria MD Primary Care Provider [phone] Allergies Active Allergy Reactions Criticality Noted Date [...] daily. Active fluticasone propionate (FLONASE) 50 mcg/spray [place], Suspension nasal inhaler Administer 2 Sprays in [...] Encounters Date Type Department Care Team Description 09/06/2025 External Device Data [facility] ABSTRACTION Provider, Abstract 09/05/2025 External Device Data [facility] ABSTRACTION Provider, Abstract 08/08/2025 External Device Data [facility] ABSTRACTION Provider, Abstract 08/01/2025 External Device Data [facility] ABSTRACTION Provider, Abstract [...] on file Legal Sex Female 4:21 PM ANESTHESIOLOGIST ASSISTANT Gender Identity Not on file Sexual Orientation [...] Description 05/02/2026 10:15 AM CDT Office Visit [facility] Oncology and Hematology [facility] [address] [facility] [address] [place] [address] Chauncey Zhang MD [address] [facility] [address] [place] [address] Health Maintenance Due Date Last [...] 2005 OSTEOPOROSIS SCREENING 2020 INFLUENZA VACCINE (#1) 2025 9, 08/02/2018, 08/19/2017 COVID-19 Vaccine (2 - season) 07/17/202509/2021 RSV VACCINE (60+ or ) (1 - 1-dose 75+ series) 2030 Insurance [employer] PPO [facility] RX [place] Medicare Part D Advance Directives For more information, please contact: [phone] * Full Code (Latest Code Status on File) Date Activated Date Inactivated Comments 08/10/2019 9:41 AM 08/16/2019 7:18 PM Care Teams Seasonal Sales Associate Relationship Specialty Start Date End Date Isaac Longoria MD [address] [facility] [address] [place] [address] PCP - General Family Practice 05/01/25
--- OUTSIDE RECORDS SUMMARY | 2025-10-26 03:49 | XMS_ITS | Clinical Summary ---
Author Organization [facility] [employer] Address [address] [place] [address] Care Team Providers Care Teaching Fellow Name Role Phone King Horta MD Primary Care Provider Source Comments [facility] [employer],non-owned Affiliates and Associated Physician Practices is amultiple site organization consisting of ambulatory clinics and hospital sitesin [place], [place], [place] and [place]. This disclosure is being madepursuant to the Care Everywhere program and may not contain all information available regarding this patient. Last updated 18.[facility] [employer] Allergies Active Allergy Reactions Criticality Noted Date Comments Contrast-Iodinated Agents Fo r Ct/Other Other,Anaphylaxis High 12/25/2017 Povidone Iodine Anaphylaxis High 12/25/2017 Medications * Be aware that medications may not be up to date on this document. Alwaysverify current medications with the patient. fluticasone propionate (FLONASE) 50 MCG/ACT nasal spray Coyote 1 spray twice a day by intranasal [...] Comments Blood Pressure 132/73 10/11/2018 3:27 PM ORDER BOOKER Pulse 68 10/11/2018 3:27 PM ORDER BOOKER Temperature 37.1 C (98.7 F) 10/11/2018 3:27 PM ORDER BOOKER Respiratory Rate 18 10/11/2018 3:27 PM ORDER BOOKER Oxygen Saturation 100% 10/11/2018 3:27 PM ORDER BOOKER Inhaled Oxygen Concentration - - Weight 82.2 kg (181 lb 3.2 oz) 10/11/2018 3:27 P M ORDER BOOKER Height 165.1 cm (5' 5) 10/11/2018 3:27 PM ORDER BOOKER Body Mass Index 30.15 10/11/2018 3:27 PM ORDER BOOKER Plan of Treatment Health Maintenance Due Date [...] 2) 2005 SCREENING FOR DIABETES 08/20/2021 08/20/2018 DEPRESSION SCREENING 11/16/2024 COVID-19 VACCINE (1 - 2024-2 6 season) 2025 INFLUENZA VACCINE (#1) 2025 8, 08/19/2017 Respiratory [...] (ABNORMAL) COMPREHENSIVE METABOLIC PANEL (08/20/2018 10:50 AM [facility]) BUN 8 7 - 26 mg/dL 08/20/2018 11:54 AM [facility] Creatinine 0.7 0.6 - 1.2 mg/dL 08/20/2018 11:54 AM [facility] Sodium 138 136 - 145 mmol/L 08/20/2018 11:54 AM [facility] Potassium 3.9 3.5 - 4.5 mmol/L 08/20/2018 11:54 AM [facility] Chloride 100 98 - 107 mmol/L 08/20/2018 11:54 AM [facility] CO2 31(H) 22 - 29 mmol/L 08/20/2018 11:54 AM [facility] Glucose 108 70 - 115 mg/dL 08/20/2018 11:54 AM [facility] Calcium 9.7 8.4 - 10.2 mg/dL 08/20/2018 11:54 AM [facility] Protein Total 7.5 6.0 - 8.3 g/dL 08/20/2018 11:54 AM [facility] Albumin 4.0 3.4 - 5.0 g/dL 08/20/2018 11:54 AM [facility] Bilirubin Total 0.8 0.2 - 1.2 mg/dL 08/20/2018 11:54 AM [facility] Alkaline Phosphatase 104 40 - 150 Units/L 08/20/2018 11:54 AM [facility] ALT 11 0 - 55 Units/L 08/20/2018 11:54 AM [facility] AST 22 5 - 34 Units/L 08/20/2018 11:54 AM [facility] Anion Gap 11 8 - 18 08/20/2018 11:54 AM [facility] BUN/Creatinine Ratio 11 7 - 23 08/20/2018 11:54 AM [facility] Osmolality Calculated 285 270 - 300 mOsm/kg 08/20/2018 11:54 AM CDT [facility] Albumin/Globulin Ratio 1.1 1.1 - 2.3 08/20/2018 11:54 AM CDT [facility] eGFR >60 >60 mL/min/1.7 3 m2 08/20/2018 11:54 AM CDT [facility] Blood BLOOD SPECIMEN / Unknown Lab Venipuncture / Unknown 08/20/2018 10:50 AM CDT 08/20/2018 11:19 AM CDT Stevenson Castro MD LAB - CHEMISTRY ORDERABLES F inal Result [place] [id number] [address] [phone] from Last 3 Months or Most Recently Relevant to Health Maintenance Insurance [facility] Care Teams Teaching Fellow Relationship Specialty Start Date End Date King Horta MD [address] [place] [id number] PCP - General 08/20/18
--- OUTSIDE RECORDS SUMMARY | 2025-10-26 03:49 | XMS_ITS | Encounter Summary ---
Author Organization [facility] Address [address] [place] [address] Care Team Providers Care Certified Professional Ergonomist Name Role Phone Andie Crawley MD Primary Care Provider [phone] Encounter Details Date Type Department Care Team (Late st Contact Info) Description 09/14/2020 Prep for Procedure [facility] [address] [place] [address] Ryan Molina MD [address] [place] [id number] Social [...] PRE-SURGICAL/PRE-PROCEDURE CORONAVIRUS (COVID 19) (09/21/2020 10:47 AM WEAVING SUPERVISOR) CORONAVIRUS SARS COV 2 PCR (RESP) NOT DETECTED NOT DETECTED 09/23/2020 4:46 AM WEAVING SUPERVISOR [facility] Comment: A Not Detected (negative) test result [...] providers and patients using the following websites: [email or web address]/fact- [email or web address].html [email or web address]://[email or web address] [email or web address]/Patients/ QuestIVD/fact-sheet.html This test has been authorized by the FDA under an Emergency Use Authorization (EUA) for use by authorized laboratories. Due to the current public health emergency, [facility] is receiving a high volume of samples [...] about COVID-19 can be found at the [facility] website: [email or web address]. Test performed at [facility] [address] [address] Director: LUIS MONTGOMERY DO,MPH FIRST TEST UNKNOWN 09/21/2020 10:44 AM [facility] EMPLOYED IN HEALTHCARE NO 09/21/2020 10:44 AM [facility] SYMPTOMATIC DEFINED BY CDC NO 09/21/2020 10:44 AM [facility] DATE OF SYMPTOM ONSET UNKNOWN 09/21/2020 11:51 AM [facility] HOSPITALIZATION STATUS NO 09/21/2020 10:44 AM [facility] PATIENT IN ICU NO 09/21/2020 10:44 AM WEAVING SUPERVISOR [facility] RESIDENT OF CONGREGATE CARE NO 09/21/2020 10:44 AM WEAVING SUPERVISOR [facility] UNKNOWN 09/21/2020 11:51 AM WEAVING SUPERVISOR [facility] PATIENT'S RACE WHITE OR 09/21/2020 10:44 AM WEAVING SUPERVISOR [facility] ETHNICITY NONHISPANIC 09/21/2020 10:44 AM WEAVING SUPERVISOR [facility] SOURCE (QST) NASOPHARYNGEAL SWAB 09/21/2020 10:44 AM WEAVING SUPERVISOR [facility] NASOPHARYNGEAL SWAB / Unknown 09/21/2020 10:47 AM WEAVING SUPERVISOR us Ryan Molina MD MICROBIOLOGY - GENERAL ORDERAB LES Final Result Performing Organization Address City/State/[facility] Co de Phone Number [facility] [address] [place] [address], [facility] [address] [place] [address], documented in this encounter Visit Diagnoses Diagnosis Preop testing- Primary Preoperative examination, unspecified documented in this encounter Additional Health Concerns Infection Onset Date Last Indicated Resolved Time COVID-19 Rule Out 09/21/2020 09/21/2020 09/23/2020 4:46 AM WEAVING SUPERVISOR COVID-19 Rule Out 10/26/2020 10/26/2020 10/28/2020 12:51 AM WEAVING SUPERVISOR documented as of this encounter Care Teams Certified Professional Ergonomist Relationship Specialty Start Date End Date Andie Crawley MD [address] [place] [address] PCP - General FAMILY PRACTICE 09/11/20 documented as of this encounter
[2025-10-26] MEDS: ACETAMINOPHEN 500 MG TABLET 1000 MG PO (06:55)
[2025-10-26] MEDS: LACTATED RINGERS 1,000 ML 30 ML IV CONT (07:00)
--- NOTE | 2025-10-26 08:41 | WPDANESEPPF ---
Anes - Initial Pre Proc Eval Procedure: Operation Date: 10/26/25 08:30 Proposed Procedures p Right Anterior Tarsal Tunnel Release - Ajay Dickens MD Date/Time: 10/26/25 08:41 Surgeon: Ajay Dickens MD Pre Op Diagnosis: rt tarsal tunnel syndrome Patient Data Age: 70 Gender: F Height: 1.65 m Weight: 98.8 kg Last Vital Signs Temp 36.3 C L 10/26/25 06:15 Pulse 63 10/26/25 06:15 Resp 16 10/26/25 06:15 BP 137/65 10/26/25 06:15 Pulse Ox 98 10/26/25 06:15 O2 Del Method Room Air 10/26/25 06:15 Allergies Allergy/AdvReac Type Severity Reaction Status Date / Time iodine Allergy Severe Anaphylactic Verified 10/26/25 08:09 Shock denosumab (From Prolia) AdvReac Severe arthralgia Verified 10/26/25 08:09 celecoxib (From Celebrex) AdvReac Intermediate Other Verified 10/26/25 08:09 IV DYE, IODINE CONTAINING Allergy Severe anaphylactic Uncoded 10/25/25 07:18 CONTRAST shock Home Medications ?Medication ?Instructions ?Recorded ?Confirmed ?Type Bacillus coagulans 250 million 1 cell PO DAILY 01/02/20 10/26/25 History cell chewable tablet (Digestive Advantage Probiotic Gummy) calcium carbonate (Calcium 500) 500 mg PO DAILY 01/02/20 10/26/25 History multivitamin (Chewable-Dmitry tablet) 1 tablet PO DAILY 01/02/20 10/26/25 History cyanocobalamin (vitamin B-12) See Rx Instructions .Route 10/05/23 10/26/25 Rx 1,000 mcg/mL injection solution .COMPLEX #3 mL (Dodex) fluoxetine 20 mg capsule See Rx Instructions .Route 02/20/25 10/26/25 Rx .COMPLEX #180 caps aspirin 81 mg tablet 81 mg PO DAILY 04/21/25 10/26/25 History buspirone 5 mg tablet See Rx Instructions .Route 04/24/25 10/26/25 Rx .COMPLEX #180 tabs rosuvastatin 5 mg tablet See Rx Instructions .Route 06/07/25 10/26/25 Rx .COMPLEX #90 tabs amlodipine 10 mg tablet See Rx Instructions .Route 08/28/25 10/26/25 Rx .COMPLEX #90 tabs losartan 50 mg tablet 50 mg PO DAILY #90 tabs 08/28/25 10/26/25 Rx clopidogrel 75 mg tablet (Plavix) 75 mg PO DAILY #90 tabs 09/26/25 10/26/25 Rx Held on 10/11/25. Instructions: .Provider Order ibandronate 150 mg tablet See Rx Instructions .Route 09/27/25 10/26/25 Rx .COMPLEX #3 tabs fluticasone fur. 100 mcg-umeclid 1 inh inhalation DAILY #60 ea 10/18/25 10/26/25 Rx 62.5 mcg-vilant 25 mcg inhalat.powder (Trelegy Ellipta) Patient hx anesthesia problems: none Family hx anesthesia problems: none Results Review: All pre-operative results and documents have been reviewed as part of the pre-operative evaluation. [facility] Past Medical History Medical History Acquired hallux valgus of left foot Tarsal tunnel syndrome, right lower limb Arthritis of foot, degenerative Stress at home BMI 32.0-32.9,adult Abnormality of gait Lumbar back sprain Contusion of hip, left Contusion of forearm, right Rhinitis Chronic bronchitis Muscle strain Cough Hypersomnia Lung nodule Immunization counseling Bradycardia Hammertoe of left foot 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 Weakness Fatigue Hypoglycemia Epidermoid cyst of finger Cyst of finger Colon cancer screening Post-menopausal AMALIA (generalized anxiety disorder) MDD (major depressive disorder), recurrent episode, moderate Injury of foot, left Fusion of lumbar spine Osteoporosis Left radial head fracture Tibial plateau fracture, left Tibia fracture Complicated grieving Chronic pain Arthritis Mild vitamin D deficiency Breast cancer screening Chronic anemia Bradycardia Chronic pain after traumatic injury Spinal stenosis at L4-L5 level Other fracture of sacrum, sequela Chronic back pain Anemia Anxiety Depression Thyromegaly Arthritis Cyst of right kidney Rectal polyp Diverticulitis Bilateral inguinal hernia Gallbladder disease GERD (gastroesophageal reflux disease) HTN (hypertension) HLD (hyperlipidemia) Peripheral neuropathy Early cataracts, bilateral Surgical History Surgical History History of foot surgery Lt 2nd metatarsal exostosis removal/ hammer toe correction DOS: 10/13/2022 History of abdominoplasty S/P cervical spinal fusion x3 H/O: hysterectomy H/O tubal ligation H/O bilateral inguinal hernia repair History of cholecystectomy H/O gastric bypass Family History Family History Mother Diabetes mellitus Hypertension Asthma Family history of arthritis COPD (chronic obstructive pulmonary disease) Father Hypertension Asthma Family history of arthritis Family history of kidney disease Heart disease Acute myocardial infarction Sibling Patient's brother is in good health COVID-19, Onset Age: 72 sister Acute myocardial infarction Other Arthritis Depression High cholesterol Social History Social History Social History: Smoking packs per day: 1 Smoking cigarettes per day: 20.0 Years smoked: 13 Smoking pack-years: 13.00 Smoking status: Former smoker Tobacco type: cigarettes Second hand tobacco smoke exposure: Yes Smoking end date: 11/16/18 Alcohol intake: never Substance use: never Substance use type: does not use Lack of Transportation: No Lack of Food: Never True Current Housing: I Have Housing Concerned About Future Housing: No Difficulty Paying Gas/Electric Bills: No Difficulty Paying for Meds: No Currently Unemployed: No Education: Bachelor's Degree Difficulty w/ Childcare or Family Care: No Living arrangements: with family Additional living arrangements comments: Occupation/Education: retired Gender identity (if verbalized by the patient): Female Sexual Orientation (if Verbalized by the Patient): Straight or Heterosexual Spiritual care concerns: No Anes - Eval Final PreProcedure Day of Procedure 10/26/25 08:41 Patient weight: obese Heart: regular rate and rhythm Lungs: clear to auscultation Airway: Mallampati scale class II Neurological: alert and oriented Last oral intake: >/= 8 hours ASA classification: III Emergent: no Anesthetic plan: proceed Anesthesia type and monitoring: general GIVS and standard monitoring Results Review: All pre-operative results and documents have been reviewed as part of the pre-operative evaluation. Informed Consent: The patient's anesthetic plan and its attendant risks and benefits were discussed with the patient/family/POA. Questions were solicited and answers provided to the satisfaction of the patient/family/POA.
--- NOTE | 2025-10-26 08:47 | SUR.PREOP ---
PATIENT DID NOT RECEIVE IV TORADOL PREOP D/T ALLERGY AND BECAUSE PT HAS BEEN TOLD BY ANOTHER DOCTOR PREVIOUSLY TO NEVER TAKE NSAIDS. DR CASTILLO MADE AWARE. NO NEW ORDERS AT THIS TIME.
--- NOTE | 2025-10-26 08:49 | WPDHPUPDATE1 ---
History and Physical Update Update Date/Time: 10/26/25 08:49 History and Physical has been reviewed, including an updated exam of the patient. There are NO changes in the patient's condition. Risks, benefits, and alternatives have been discussed and questions answered. Patient agrees to proceed with procedure.
[2025-10-26] MEDS: ceFAZolin 2 GM in SODIUM CHLORIDE 0.9% IV 50 ML 100 ML IVPB (08:53)
[2025-10-26] MEDS: BUPIVACAINE/EPINEPHRINE 0.5% 50 ML VIAL 10 ML INFILTRATE (09:13)
--- NOTE | 2025-10-26 09:33 | S_PTH ---
PATIENT: Kerry Gonsales LOC: [facility] U#:[id number] AGE/SX: 70/F ROOM: RE10/26/[address]: Ajay Dickens MD : 1955 BED: DIS: 10/26/2025 SPEC #: [id number] RECD: 10/26/25 11:50 STATUS: YOSEF REQ #: [id number] KANU: 10/26/25 09:[address]: Ajay Dickens DEPT: [facility] Surgical RECD BY: Tete Gates ENTERED: 10/26/25 11:51 SP TYPE: Surgical OTHR DR: Isaac Longoria MD Tissues: A - Nerve Bx Procedures: Gross Exam Level 1
--- NOTE | 2025-10-26 10:14 | P.OP_ITS ---
Procedure Note - Detailed Date of Procedure 10/26/25 Pre-op Diagnosis rt tarsal tunnel syndrome Post-op Diagnosis Same Procedure Performed Anterior tarsal tunnel release right ankle Surgeon Ajay Dickens MD Operations Staff Specialist Security 1st banking assistant Anesthesia General Indications 70-year-old woman with right foot pain and exam findings consistent with anterior tarsal tunnel syndrome. Diagnosis confirmed with positive nerve blockade. Presents for operative treatment. Description of Procedure Informed consent given by the patient and operative extremity marked in preoperative holding area. Patient received intravenous antibiotics. Taken to the operating room and underwent general anesthesia by anesthesia team. Positioned supine on operating room table. Time-out performed confirming patient, site of surgery, and plan. Right lower extremity prepped and draped in usual sterile surgical fashion using ChloraPrep skin solution. No tourniquet utilized. Local anesthetic with 0.5% Marcaine and epinephrine at the incision site. Fifteen blade knife used to make oblique incision over the anterior tarsal tunnel anterior aspect of the right ankle. Hemostasis controlled with electrocautery and bipolar cautery. Dissection carried down to the fascia which was incised in line with skin incision and retractors placed. Careful technique utilized with Silverton elevator to isolate the deep peroneal nerve. Vascular bundle identified and protected. 1 cm length nerve excised and passed off as specimen. Bleeding points controlled with bipolar cautery. Wound thoroughly irrigated with antibiotic solution. Retinaculum repaired with 3-0 Monocryl running suture. Subcutaneous tissue repaired with 3 O Monocryl interrupted suture. Skin repaired with 3-0 Monocryl running subcuticular stitch. Sterile dressing placed. Patient woken from anesthesia, extubated, taken to recovery in stable condition. All sponge, needle, instrument counts correct at end of case. Estimated Blood Loss 2 Tourniquet Time Total Tourniquet Time: 0 Drains No Packing No Pathology None sent Complications None Condition Stable Disposition PACU [facility] Billing Surgery - Charge Forward: Surgery Billing ([id number])
== END 2025-10-26 11:42 | disposition home or self-care (01) ==
PROVIDERS: PCP Family Medicine; Visit Provider Orthopaedic Surgery
PROC: (CPT 28035; principal; 2025-10-26 08:30)
DX: G57.51 Tarsal tunnel syndrome, right lower limb (principal); M19.071 Primary osteoarthritis, right ankle and foot; I10 Essential (primary) hypertension; E78.5 Hyperlipidemia, unspecified; K21.9 Gastro-esophageal reflux disease without esophagitis; J42 Unspecified chronic bronchitis; G47.10 Hypersomnia, unspecified; R00.1 Bradycardia, unspecified; E16.2 Hypoglycemia, unspecified; F41.9 Anxiety disorder, unspecified; F33.1 Major depressive disorder, recurrent, moderate; M81.0 Age-related osteoporosis without current pathological fracture; G89.29 Other chronic pain; E55.9 Vitamin D deficiency, unspecified; D64.9 Anemia, unspecified; M48.061 Spinal stenosis, lumbar region without neurogenic claudication; K82.9 Disease of gallbladder, unspecified; G62.9 Polyneuropathy, unspecified; E66.9 Obesity, unspecified; Z68.36 Body mass index [BMI] 36.0-36.9, adult; Z79.82 Long term (current) use of aspirin; Z79.02 Long term (current) use of antithrombotics/antiplatelets; Z79.83 Long term (current) use of bisphosphonates; Z79.51 Long term (current) use of inhaled steroids; Z98.890 Other specified postprocedural states; Z98.1 Arthrodesis status; Z98.51 Tubal ligation status; Z90.49 Acquired absence of other specified parts of digestive tract; Z98.84 Bariatric surgery status; Z86.0100 Personal history of colon polyps, unspecified; Z87.19 Personal history of other diseases of the digestive system; Z87.891 Personal history of nicotine dependence; Z82.49 Family history of ischemic heart disease and other diseases of the circulatory system
CPT/HCPCS: 28035; 88300; J0690; A9270; J1171; J2250; J2371; J2704; J7120